=== PATIENT | female | born 1985 | race Caucasian/White ===

== ENCOUNTER 2016-03-03 11:00 | Inpatient (IN) | payer BC ==
[~2016-03-03] VITALS: Ht 162.6 cm; Wt 91.0 kg
[~2016-03-03 11:00] MED LIST: ALBU1NEB10 INH; DIAZ-165 PO; LEVO175T PO; PRED20TA PO
[2016-03-03] MEDS ORDERED: ONDANSETRON INJ 2 MG/ML 2 ML VIAL IV STA (11:46)
[2016-03-03] MEDS ORDERED: HYDROmorphone INJ 1 MG/ML SYR IV STA (11:46)
[2016-03-03 12:18] LABS: BASO % 0.2 %; BASO ABS # 0.02 K/uL (0-0.2); COMPLETE YES; EOS % 0.1 %; HEMATOCRIT 40.9 % (37-47); IG% 0.2 %; LYMPH % 34.6 %; LYMPH ABS # 2.82 K/uL (1.2-3.4); MEAN CELL VOLUME 89.3 fL (80-100); MEAN CORPUSCULAR HGB CONC 34.7 g/dl (32-36); MEAN PLATELET VOLUME 9.1 fL (7.4-10.4); MONO % 8.1 %; NEUT % 56.8 %; PLATELET COUNT 313 K/uL (130-400); RED BLOOD COUNT 4.58 M/uL (4.2-5.4); WHITE BLOOD COUNT 8.16 K/uL (4.8-10.8)
--- NOTE | 2016-03-03 12:25 | DIAGNOSTIC IMAGING REPORT ---
CHEST ONE VIEW PORTABLE CLINICAL HISTORY: Preoperative chest COMPARISON STUDY: 04/04/2014 FINDINGS: The cardiac and mediastinal contours are normal. There is no evidence of focal pulmonary consolidation. There is no evidence of failure. No pleural effusions are visualized.[ IMPRESSION: No active disease in the chest. Electronically signed by: Reginald Sotomayor M.D. 03/03/2016 12:23 PM
[2016-03-03 12:59] LABS: BLOOD UREA NITROGEN 8 mg/dl (7-18); BUN/CREATININE RATIO 8.1 (10-20); CALCIUM 8.5 mg/dl (8.5-10.1); CARBON DIOXIDE 24 mmol/L (21-32); CHLORIDE 107 mmol/L (98-107); GLUCOSE 102 mg/dl (70-99)
[2016-03-03 13:00] LABS: POTASSIUM 4.1 mmol/L (3.5-5.1); SODIUM 141 mmol/L (136-145)
[2016-03-03] MEDS ORDERED: ALBUTEROL 0.083% NEBU SOLN 3 ML VIAL INH PRN (13:30)
[2016-03-03] MEDS ORDERED: LORAZEPAM 1 MG TAB PO PRN (13:30)
[2016-03-03] MEDS ORDERED: ALBUTEROL HFA 8 GM INHALER INH PRN (13:30)
[2016-03-03] MEDS ORDERED: LORAZEPAM INJ 1 MG in SYRINGE 0.5 ML IV PRN (13:30)
[2016-03-03] MEDS ORDERED: PROMETHAZINE HCL INJ 12.5 MG in SODIUM CHLORIDE 0.9% 50ML 50 ML IV PRN (13:30)
[2016-03-03] MEDS ORDERED: CYCLOBENZAPRINE HCL 10 MG TAB PO PRN (13:30)
[2016-03-03] MEDS ORDERED: ACETAMINOPHEN 325 MG TAB PO PRN (13:30)
[2016-03-03 13:41] LABS: PREG INTERNAL NEGATIVE QC NEG CLEAR BACKGROUND; PREG INTERNAL POSITIVE QC POS CONTROL LINE
[2016-03-03 13:45] LABS: ALB/GLOB RATIO 1.1 (0.9-2); ALKALINE PHOSPHATASE 135 U/L (45-117); ALT/SGPT 24 U/L (12-78); AST/SGOT 17 U/L (15-37)
[2016-03-03 14:18] VITALS: BP 129/84; PULSE 65; TEMP 36.8; O2SAT 98; Ht 162.6 cm; Wt 91.0 kg
--- NOTE | 2016-03-03 14:58 | EMERGENCY ROOM VISIT NOTE ---
History First contact with patient: 11:31 Chief Complaint: BACK PAIN Stated Complaint: BACK PAIN History of Present Illness The patient is a 30 year old female who presents to the Emergency Room with complaints of persistent and uncontrollable lower back pain. The patient was seen in the emergency department last , 02/28/16, with similar symptoms. She had an MRI performed that showed an extruded disc fragment. Dr. Cox, ED attending physician, spoke with the patient's spine surgeon, Dr. Rosen, who elected outpatient management. He suggested outpatient follow-up for today; however, when our case sealer contacted the office, their first available appointment was this up coming 03/07/16 at 2:45 PM. The patient reports that she has been taking Percocet, Valium and Zofran. She has been nauseated and has been unable to keep any medications down. She reports that the pain is progressively worsening. She denies any bladder or bowel incontinence, right lower extremity weakness or foot drop. She rates her discomfort a 10 out of 10. Review of Systems HEENT: Denies dizziness, visual problems, hearing loss, tinnitus. Denies difficulty swallowing or oral lesions. PULMONARY: Denies cough, shortness of breath, sputum production or hemoptysis. CARDIOVASCULAR: Denies chest pain, palpitations, dyspnea on exertion, orthopnea or peripheral edema. GASTROINTESTINAL: Denies diarrhea, constipation, nausea, vomiting, or abdominal pain. GENITOURINARY: Denies dysuria, frequency, urgency or nocturia. NEUROLOGIC: Denies history of epilepsy, CVA, TIA or chronic headaches. MUSCULOSKELETAL: Denies history of joint tenderness/swelling. Otherwise see history of present illness for history of chronic back pain and prior back surgery. SKIN: Denies rashes or lesions. PSYCHIATRIC: Denies history of depression or mental illness. ENDOCRINE: Denies history of diabetes or thyroid disorders. Past Medical/Surgical History Medical Problems: (1) Asthma (2) Carpal tunnel syndrome (3) Contusion of foot (4) Contusion of foot (5) Contusion of left index finger without damage to nail (6) Contusion of left index finger without damage to nail (7) Herniated lumbar intervertebral disc (8) Hypothyroidism (9) Hypothyroidism Nos (10) Low back pain (11) Lumbago (12) Menorrhagia (13) Pneumonia, Organism Nos (14) Recurrent displacement of lumbar disc (15) Tobacco Use Disorder (16) Upper respiratory infection (17) Work related injury Surgical Problems: (1) H/O bilateral salpingectomy (2) H/O lumbar discectomy (3) H/O tubal ligation (4) History of hysterectomy (5) Status post tonsillectomy and adenoidectomy (6) Tubal Ligation Status Family History FH: cancer FH: diabetes mellitus FH: gallbladder disease FH: hypertension FH: kidney disease FH: seizures Social History Smoking Status: Current Every Day Smoker Alcohol Use: none Marital Status: single Occupation Status: employed Current/Historical Medications Scheduled Levothyroxine Sodium (Levothyroxine Sodium), 200 MCG PO DAILY Scheduled PRN Albuterol Hfa (Ventolin Hfa), 2 PUFF INH Q4 PRN for Shortness of Breath Albuterol Sulf (Albuterol Sulfate 0.083% For Inh), 3 ML INH Q4 PRN for Wheezing Cyclobenzaprine Hcl (Flexeril), 10 MG PO TID PRN for SPASMS Diazepam (Valium), 5-10 MG PO Q6H PRN for Muscle Spasms Diphenhydramine Hcl (Benadryl Allergy), 25 MG PO BID PRN for ALLERGIC REACTION Epinephrine (Epipen), 0.3 MG IM UD PRN for ALLERGIC REACTION Allergies Coded Allergies: BEE STING (Verified Allergy, Severe, THROAT SWELLS,MOUTH, 03/03/16) Cat Dander (Verified Allergy, Severe, EYES AND THROAT SWELLS, 03/03/16) Dog Dander (Verified Allergy, Severe, EYES AND THROAT SWELLS, 03/03/16) Molds & Smuts (Verified Allergy, Severe, EYES AND THROAT SWELLS, 03/03/16) Moxifloxacin (Verified Allergy, Severe, THROAT SWELLING, 03/03/16) Sulfamethoxazole w/Trimethoprim (Verified Allergy, Severe, THROAT SWELLS, 03/03/16) Penicillins (Verified Allergy, Intermediate, HIVES, 03/03/16) Dust Mite Extract (Verified Allergy, Unknown, STUFFY NOSE, 03/03/16) Physical Exam Vital Signs Date Time Temp Pulse Resp B/P Pulse Ox O2 Delivery O2 Flow Rate FiO2 03/03/16 11:05 36.7 84 20 136/93 98 Room Air Physical Exam CONSTITUTIONAL: Healthy and well nourished. Alert and oriented X 3 with positive affect. Patient appears in moderately severe discomfort, and is crying. HEENT: Normocephalic, atraumatic. Pupils equal, round and reactive. NECK: Full active range of motion without discomfort. RESPIRATORY: Clear to auscultation bilaterally with no wheezing, crackles, rhonchi or stridor. CARDIOVASCULAR: Regular rate and rhythm with no murmurs, rubs or gallops. GASTROINTESTINAL: Bowel sounds present in all quadrants. Soft and nontender to palpation. MUSCULOSKELETAL: Examination shows diffuse tenderness to palpation through the lower central lumbar spine and SI joints. Negative logroll. Positive straight leg raise. Ankle plantar/dorsiflexion strength is 4 out of 5 and symmetric bilaterally. Pedal pulses are intact. INTEGUMENTARY: No rash or other significant dermatologic conditions noted. NEUROLOGIC: Right lower extremity is sensory intact. Deep tendon reflexes 2+ and symmetric bilaterally. Medical Decision & Procedures ER Provider Diagnostic Interpretation: My interpretation of a preoperative chest x-ray shows a sinus rhythm of 78 bpm with a first-degree AV block.'s was also noted on the patient's prior ECG of 04/04 with no other acute changes. My interpretation of the report will chest x-ray does not show any consolidations, pneumothorax or cardiomegaly. Radiologist report is as follows: CHEST ONE VIEW PORTABLE CLINICAL HISTORY: Preoperative chest COMPARISON STUDY: 04/04/2014 FINDINGS: The cardiac and mediastinal contours are normal. There is no evidence of focal pulmonary consolidation. There is no evidence of failure. No pleural effusions are visualized.[ IMPRESSION: No active disease in the chest. I reviewed the patient's ED MRI from 02/28/16, which showed the following: IMPRESSION: 1. There is a disc bulge at L5-S1 with a large inferiorly extruded disc fragment eccentric to the right. This impinges on the exiting right L5 and transiting right sacral nerve roots. 2. There is a small disc bulge eccentric to the right at L4-L5. This may impinge on the transiting right L5 nerve root. 3. There are postoperative changes from right hemilaminectomy at L4 and L5. 4. Degenerative disc disease and chronic endplate changes as above. Laboratory Results 03/03/16 12:05 Red Blood Count 4.58, Mean Corpuscular Volume 89.3, Mean Corpuscular Hemoglobin 31.0, Mean Corpuscular Hemoglobin Concent 34.7, Mean Platelet Volume 9.1, Neutrophils (%) (Auto) 56.8, Lymphocytes (%) (Auto) 34.6, Monocytes (%) (Auto) 8.1, Eosinophils (%) (Auto) 0.1, Basophils (%) (Auto) 0.2, Neutrophils # (Auto) 4.63, Lymphocytes # (Auto) 2.82, Monocytes # (Auto) 0.66, Eosinophils # (Auto) 0.01, Basophils # (Auto) 0.02 03/03/16 12:05 Test 03/03/16 12:05 White Blood Count 8.16 K/uL (4.8-10.8) Red Blood Count 4.58 M/uL (4.2-5.4) Hemoglobin 14.2 g/dL (12.0-16.0) Hematocrit 40.9 % (37-47) Mean Corpuscular Volume 89.3 fL (80-100) Mean Corpuscular Hemoglobin 31.0 pg (25-34) Mean Corpuscular Hemoglobin Concent 34.7 g/dl (32-36) Platelet Count 313 K/uL (130-400) Mean Platelet Volume 9.1 fL (7.4-10.4) Neutrophils (%) (Auto) 56.8 % Lymphocytes (%) (Auto) 34.6 % Monocytes (%) (Auto) 8.1 % Eosinophils (%) (Auto) 0.1 % Basophils (%) (Auto) 0.2 % Neutrophils # (Auto) 4.63 K/uL (1.4-6.5) Lymphocytes # (Auto) 2.82 K/uL (1.2-3.4) Monocytes # (Auto) 0.66 K/uL (0.11-0.59) Eosinophils # (Auto) 0.01 K/uL (0-0.5) Basophils # (Auto) 0.02 K/uL (0-0.2) RDW Standard Deviation 45.2 fL (36.4-46.3) RDW Coefficient of Variation 13.8 % (11.5-14.5) Immature Granulocyte % (Auto) 0.2 % Immature Granulocyte # (Auto) 0.02 K/uL (0.00-0.02) Anion Gap 10.0 mmol/L (3-11) Estimated GFR () 86.3 Estimated GFR (Non- 74.5 BUN/Creatinine Ratio 8.1 (10-20) Calcium Level 8.5 mg/dl (8.5-10.1) Total Bilirubin 0.4 mg/dl (0.2-1) Aspartate Amino Transf (AST/SGOT) 17 U/L (15-37) Alanine Aminotransferase (ALT/SGPT) 24 U/L (12-78) Alkaline Phosphatase 135 U/L (45-117) Total Protein 6.5 gm/dl (6.4-8.2) Albumin 3.4 gm/dl (3.4-5.0) Globulin 3.1 gm/dl (2.5-4.0) Albumin/Globulin Ratio 1.1 (0.9-2) Human Chorionic Gonadotropin, Qual NEG (NEG) The above labs were reviewed. Medications Administered Medications (Trade) Dose Ordered Sig/Cortez Route Start Time Stop Time Status Last Admin Dose Admin Hydromorphone HCl (Dilaudid Inj) 1 mg NOW STAT IV 03/03/16 11:46 03/03/16 11:49 DC 03/03/16 12:08 1 MG Ondansetron HCl (Zofran Inj) 4 mg NOW STAT IV 03/03/16 11:46 03/03/16 11:49 DC 03/03/16 12:07 4 MG ED Course Patient history and physical exam were performed. Nurse's notes were reviewed. Vital signs were reviewed and were normal. I did review the patient's documentation from her last ED visit, including the MRI report. I also reviewed documentation from case sealer. At this point, the patient is failing outpatient management. I did discuss several options with the patient, including pain management at this time and waiting until her appointment on Thursday. I do not feel that this is going to happen since she cannot take her analgesics at home without nausea, with already taking Zofran to prevent nausea. At this point, I discussed the case further with Dr. Kwon, who also discussed the case further with Dr. Rosen. The patient will be admitted for anticipated surgical fusion. Please see their dictation for further treatment and final disposition. The patient rated her pain a 4 out of 10 at the time of transfer of care. Presurgical labs, ECG and portable chest x-ray were also ordered, reviewed and normal. Medical Decision Impression Primary Impression: Herniated lumbar intervertebral disc Departure Information Referrals Karla Yuen D.O. (PCP) Patient Instructions A Signature Page, My [facility]
[2016-03-03 15:00] VITALS: BP 133/85; PULSE 68; TEMP 36.5; O2SAT 97
[2016-03-03] MEDS: OXYCODONE/ACETAMINOPHEN 5-325 TAB PO PRN ×2 (15:28→21:43)
[2016-03-03 16:30] VITALS: O2SAT 97
--- NOTE | 2016-03-03 16:40 | DIAGNOSTIC IMAGING REPORT ---
BILATERAL LOWER EXTREMITY VENOUS DOPPLER HISTORY: Pain. Edema. leg pain COMPARISON STUDY: None. FINDINGS: There is normal compressibility, flow, and augmentation within the bilateral lower extremity deep venous systems. IMPRESSION: No DVT within the right or left lower extremity. Electronically signed by: Barrett Hawkins M.D. 03/03/2016 4:38 PM
[2016-03-03] MEDS: DOCUSATE SODIUM 100 MG CAP PO SCH (21:40)
[2016-03-03] MEDS: ONDANSETRON INJ 2 MG/ML 2 ML VIAL IV PRN (21:42)
[2016-03-03 22:55] VITALS: BP 110/73; PULSE 60; TEMP 36.6; O2SAT 97
[2016-03-04] MEDS: ONDANSETRON INJ 2 MG/ML 2 ML VIAL IV PRN ×2 (03:47→23:55)
[2016-03-04] MEDS: OXYCODONE/ACETAMINOPHEN 5-325 TAB PO PRN ×4 (03:47→23:56)
[2016-03-04] MEDS: LEVOTHYROXINE 200 MCG TAB PO SCH (05:22)
[2016-03-04 06:55] VITALS: BP 109/75; PULSE 52; TEMP 36.4; O2SAT 97
[2016-03-04] MEDS ORDERED: KETOROLAC TROMETHAMINE 30 MG/ML VIAL IV PRN (07:45)
[2016-03-04] MEDS: DOCUSATE SODIUM 100 MG CAP PO SCH ×2 (09:00→20:54)
--- NOTE | 2016-03-04 09:01 | DIAGNOSTIC IMAGING REPORT ---
MRI LUMBAR SPINE COMBINATION CLINICAL HISTORY: Low back pain with right leg radiculopathy. Abnormal noncontrast MRI dated 02/28/2016 TECHNIQUE: Sagittal and axial T1, T2 and STIR images were obtained. COMPARISON STUDY: 02/28/2016 OBSERVATIONS: The vertebral bodies and posterior elements appear intact. There is no abnormal bony signal present to suggest a marrow replacement process. Degenerative endplate marrow signal changes are present at the L4-5, and L5-S1 levels. L1-2: No disc protrusions or extrusions. No evidence of spinal canal or neural foraminal compromise. L2-3: No disc protrusions or extrusions. No evidence of spinal canal or neural foraminal compromise. L3-4: No disc protrusions or extrusions. No evidence of spinal canal or neural foraminal compromise. L4-5: There are postsurgical changes of a right hemilaminectomy. There is an eccentric right-sided disc bulge with an annular fissure. There is postcontrast enhancement. There is no significant spinal or foraminal stenosis. L5-S1: There are postsurgical changes of a right hemilaminectomy. There is a right paracentral soft tissue mass with surrounding postcontrast enhancement. This is consistent with a right-sided disc extrusion. The disc fragment measures 6 mm in AP diameter. There is secondary deformity of thecal sac and there is likely impingement of the right S1 nerve root The conus medullaris and cauda equina appear normal. IMPRESSION: 1. Right-sided extruded disc fragment at the L5-S1 level with secondary thecal sac deformity, and probable impingement of the right S1 nerve root as separates from the thecal sac 2. Eccentric right-sided disc bulge and annular fissure at the L4-5 level 3. Postsurgical changes of right-sided hemilaminectomies at the L4-5, and L5-S1 level Electronically signed by: Reginald Sotomayor M.D. 03/04/2016 9:00 AM
[2016-03-04] MEDS: DEXAMETHASONE INJ 8 MG in SYRINGE 0 ML IV SCH ×2 (09:06→18:06)
[2016-03-04 14:48] VITALS: BP 128/73; PULSE 68; TEMP 36.6; O2SAT 93
[2016-03-04 20:30] VITALS: O2SAT 93
[2016-03-04 23:49] VITALS: BP 100/49; PULSE 71; TEMP 36.5; O2SAT 100
[2016-03-05] MEDS: DEXAMETHASONE INJ 8 MG in SYRINGE 0 ML IV SCH ×3 (02:43→18:40)
[2016-03-05] MEDS: OXYCODONE/ACETAMINOPHEN 5-325 TAB PO PRN ×4 (05:25→19:58)
[2016-03-05] MEDS: LEVOTHYROXINE 200 MCG TAB PO SCH (05:25)
--- NOTE | 2016-03-05 06:51 | Orthopedic Progress Note ---
Orthopedic Progress Note Date of Service Mar 05, 2016. Subjective Additional Notes: Stopped in patient's room at 650 AM, she and her significant were not present. Nursing said that they had left the floor for the outside to smoke a cigarette. Objective Unable to be performed Date Time Temp Pulse Resp B/P Pulse Ox O2 Delivery O2 Flow Rate FiO2 03/04/16 23:49 36.5 71 16 100/49 100 Room Air 03/04/16 23:45 Room Air 03/04/16 20:30 93 Room Air 03/04/16 14:48 36.6 68 16 128/73 93 Room Air 03/04/16 07:30 Room Air 03/04/16 06:55 36.4 52 12 109/75 97 Room Air Assessment & Plan Assessment: Recurrent Lumbar Disc Herniation Plan: At this time, unable to offer further treatment planning. If patient is able to leave hospital for a cigarette, I would feel at this time she could be discharged home and care could be continued on an outpatient basis with Dr. Rosen.
[2016-03-05 07:54] VITALS: BP 122/68; PULSE 73; TEMP 36.6; O2SAT 94
[2016-03-05] MEDS: DOCUSATE SODIUM 100 MG CAP PO SCH ×2 (08:37→20:45)
--- NOTE | 2016-03-05 11:29 | History and Physical ---
History & Physical Date & Time of Service: Mar 05, 2016 at 11:24 Chief Complaint: Recurrent Displacement Of Lumbar Disc Primary Care Physician: Karla Yuen D.O. History of Present Illness Source: patient 30 year old with a one month history of recurring lbp and right lower extremity pain with weakness and numbness. No left lower extremity pain. No bowel or bladder disturbances. Seen in ER and treated with steroids with no increased relief of pain. Admitted for pain control and treatment options. Past Medical/Surgical History Medical Problems: (1) Asthma Status: Chronic (2) Carpal tunnel syndrome Status: Resolved (3) Contusion of foot Status: Resolved (4) Contusion of foot Status: Resolved (5) Contusion of left index finger without damage to nail Status: Resolved (6) Contusion of left index finger without damage to nail Status: Resolved (7) Herniated lumbar intervertebral disc Status: Resolved (8) Hypothyroidism Status: Chronic (9) Low back pain Status: Resolved (10) Lumbago Status: Resolved (11) Menorrhagia Status: Resolved (12) Pneumonia, Organism Nos Status: Resolved (13) Tobacco Use Disorder Status: Chronic (14) Upper respiratory infection Status: Resolved (15) Work related injury Status: Resolved Surgical Problems: (1) H/O bilateral salpingectomy Status: Resolved (2) H/O lumbar discectomy Status: Resolved (3) H/O tubal ligation Status: Resolved (4) History of hysterectomy Status: Resolved (5) Status post tonsillectomy and adenoidectomy Status: Resolved Family History FH: cancer FH: diabetes mellitus FH: gallbladder disease FH: hypertension FH: kidney disease FH: seizures Social History Smoking Status: Current Every Day Smoker Marital Status: single Housing status: other Occupational Status: employed Immunizations History of Tetanus Vaccine?: Unknown History of Pneumococcal: Unknown History of Hepatitis B Vaccine: Unknown Multi-Drug Resistant Organisms History of MDRO: No Allergies Coded Allergies: BEE STING (Verified Allergy, Severe, THROAT SWELLS,MOUTH, 03/03/16) Cat Dander (Verified Allergy, Severe, EYES AND THROAT SWELLS, 03/03/16) Dog Dander (Verified Allergy, Severe, EYES AND THROAT SWELLS, 03/03/16) Molds & Smuts (Verified Allergy, Severe, EYES AND THROAT SWELLS, 03/03/16) Moxifloxacin (Verified Allergy, Severe, THROAT SWELLING, 03/03/16) Sulfamethoxazole w/Trimethoprim (Verified Allergy, Severe, THROAT SWELLS, 03/03/16) Penicillins (Verified Allergy, Intermediate, HIVES, 03/03/16) Dust Mite Extract (Verified Allergy, Unknown, STUFFY NOSE, 03/03/16) Home Medications Scheduled Levothyroxine Sodium (Levothyroxine Sodium), 200 MCG PO DAILY Scheduled PRN Albuterol Hfa (Ventolin Hfa), 2 PUFF INH Q4 PRN for Shortness of Breath Albuterol Sulf (Albuterol Sulfate 0.083% For Inh), 3 ML INH Q4 PRN for Wheezing Cyclobenzaprine Hcl (Flexeril), 10 MG PO TID PRN for SPASMS Diazepam (Valium), 5-10 MG PO Q6H PRN for Muscle Spasms Diphenhydramine Hcl (Benadryl Allergy), 25 MG PO BID PRN for ALLERGIC REACTION Epinephrine (Epipen), 0.3 MG IM UD PRN for ALLERGIC REACTION Review of Systems Constitutional: No chills, No fatigue, No fever, No problem reported, No sweats , No weakness, No weight loss Respiratory: No cough, No dyspnea at rest, No dyspnea on exertion, No hemoptysis, No problem reported, No shortness of breath, No sputum, No wheezing Cardiovascular: No PND, No chest pain, No claudication, No edema, No orthopnea , No palpitations, No problem reported Abdomen: No GI bleeding, No constipation, No diarrhea, No nausea, No pain, No problem reported, No vomiting Neurologic: + numbness/tingling, + weakness Integumentary: No bleeding, No color change, No itch, No new/changing skin lesions, No problem reported, No rash Physical Exam Vital Signs Date Time Temp Pulse Resp B/P Pulse Ox O2 Delivery O2 Flow Rate FiO2 03/05/16 07:54 36.6 73 20 122/68 94 Room Air 03/04/16 23:49 36.5 71 16 100/49 100 Room Air 03/04/16 23:45 Room Air 03/04/16 20:30 93 Room Air 03/04/16 14:48 36.6 68 16 128/73 93 Room Air General Appearance: WD/WN, no apparent distress Head: normocephalic Eyes: PERRL, EOMI ENT: hearing grossly normal Neck: supple Respiratory/Chest: no respiratory distress Cardiovascular: normal peripheral pulses Abdomen/GI: non tender, soft Back: + decreased range of motion, + paravertebral tenderness Extremities/Musculoskelatal: no calf tenderness, normal capillary refill, no pedal edema, normal range of motion Neurologic/Psych: no motor/sensory deficits Skin: normal color, warm/dry, no rash Diagnostics Diagnostic Radiology Recurrent R lumbar disc herniation Impression Assessment and Plan Lumbar Disc Herniation: will place patient on Decadron and Toradol. Pain medication for increased symptomatic pain. Will re-evaluate. Advanced Directives Existing Advance Directive: No Existing Living Will: No Existing Power of Shirring Machine Operator: No VTE Prophylaxis VTE Risk Assessment Done? Y/N: No Risk Level: Low
--- NOTE | 2016-03-05 11:31 | Orthopedic Progress Note ---
Orthopedic Progress Note Date of Service Mar 05, 2016. Subjective Additional Notes: I spoke with Dr. Rosen regarding status of patient. He evaluated the patient yesterday and agrees with my evaluation of patient and status. At this time, we are going to attempt to calm her pain and treat this conservatively. She may be discharged home and should arrange follow-up with Dr. Rosen ). Objective Date Time Temp Pulse Resp B/P Pulse Ox O2 Delivery O2 Flow Rate FiO2 03/05/16 07:54 36.6 73 20 122/68 94 Room Air 03/04/16 23:49 36.5 71 16 100/49 100 Room Air 03/04/16 23:45 Room Air 03/04/16 20:30 93 Room Air 03/04/16 14:48 36.6 68 16 128/73 93 Room Air Assessment & Plan Assessment: Recurrent Lumbar Disc Herniation Plan: At this time, unable to offer further treatment planning. If patient is able to leave hospital for a cigarette, I would feel at this time she could be discharged home and care could be continued on an outpatient basis with Dr. Rosen.
--- NOTE | 2016-03-05 11:33 | Discharge Instructions ---
Discharge Instructions Admission Reason for Admission: Recurrent Displacement Of Lumbar Disc Discharge Discharge Diagnosis / Problem: Recurrent lumbar disc herniation Discharge Goals Goal(s): Decrease discomfort, Improve function, Increase independence Activity Recommendations Activity Limitations: as noted below Lifting Limitations: no more than 10 pounds Exercise/Sports Limitations: gradually increase as tolerated May Resume Sexual Activity: after follow-up appointment Shower/Bathe: no limitations . Instructions / Follow-Up Instructions / Follow-Up Patient is to call Dr. Rosen, [phone] and arrange follow up care. Current Hospital Diet Patient's current hospital diet: Regular Diet Discharge Diet Recommended Diet: Regular Diet Pending Studies Studies pending at discharge: no Medical Emergencies . Who to Call and When: Medical Emergencies: If at any time you feel your situation is an emergency, please call 911 immediately. . Non-Emergent Contact Non-Emergency issues call your: Primary Care Provider Call Non-Emergent contact if: your pain is not controlled, your pain is worsening, your pain is unusual for you, your pain is concerning you . "Provider Documentation" section prepared by Jose Guadalupe Garcia. VTE Core Measure Inpt VTE Proph given/why not?: Gibson Alejandro
[2016-03-05 15:29] VITALS: BP 100/59; PULSE 66; TEMP 36.7; O2SAT 94
[2016-03-05 15:40] VITALS: O2SAT 94
[2016-03-05] MEDS: ONDANSETRON INJ 2 MG/ML 2 ML VIAL IV PRN (15:59)
[2016-03-05 22:55] VITALS: BP 113/72; PULSE 66; TEMP 36.5; O2SAT 93
[2016-03-06] MEDS: OXYCODONE/ACETAMINOPHEN 5-325 TAB PO PRN ×3 (01:40→13:02)
[2016-03-06] MEDS: DEXAMETHASONE INJ 8 MG in SYRINGE 0 ML IV SCH ×2 (01:41→09:34)
[2016-03-06] MEDS: LEVOTHYROXINE 200 MCG TAB PO SCH (05:42)
[2016-03-06 07:12] VITALS: BP 110/67; PULSE 61; TEMP 36.4; O2SAT 93
[2016-03-06] MEDS: DOCUSATE SODIUM 100 MG CAP PO SCH (09:34)
[2016-03-06] MEDS ORDERED: KETO10TA PO (12:25)
[2016-03-06] MEDS ORDERED: OXYC-57 PO (12:26)
--- NOTE | 2016-03-06 12:29 | Orthopedic Progress Note ---
Orthopedic Progress Note Date of Service Mar 06, 2016. Subjective Additional Notes: Feeling better, still RLE pain with increased activity. More tolerable than before. No numbness or weakness. Continues to leave hospital on regular basis to smoke. No other complaints. Objective calves soft nontender, N/V intact, capillary refill less than 2 sec., A&O x3, toes mobile Date Time Temp Pulse Resp B/P Pulse Ox O2 Delivery O2 Flow Rate FiO2 03/06/16 08:00 Room Air 03/06/16 07:12 36.4 61 12 110/67 93 Room Air 03/06/16 00:10 Room Air 03/05/16 22:55 36.5 66 16 113/72 93 Room Air 03/05/16 15:40 94 Room Air 03/05/16 15:29 36.7 66 16 100/59 94 Room Air Assessment & Plan Assessment: Recurrent Lumbar Disc Herniation Plan: At this time, we had a long discussion regarding her care. We will attempt to discharge home today on Toradol and Percocet (for pain). We will arrange an injection as a conservative measure to control her pain. She was in agreeance with this plan
[2016-03-06 14:21] VITALS: BP 110/67; PULSE 61; TEMP 36.4; O2SAT 93
[2016-03-06] MEDS: ONDANSETRON INJ 2 MG/ML 2 ML VIAL IV PRN (14:36)
--- NOTE | 2016-03-12 10:21 | DISCHARGE SUMMARY ---
PRINCIPAL DIAGNOSIS: Recurrent lumbar disc herniation. POSTOPERATIVE DIAGNOSIS: Recurrent lumbar disc herniation. HISTORY OF PRESENT ILLNESS: Please refer to EMR. HOSPITAL COURSE: On the above admission date Ms. Miller was admitted to [facility] for care for recurrent lumbar disc herniation. She was placed on the med/surg unit where she was evaluated and treated conservatively with IV and oral medications including steroids and opioids. She was evaluated subsequent admission day and was improving, medically she remained stable. Her pain was well managed. There were no complications or issues. She was evaluated on date of 03/06/2016 and indicated for return home with continued outpatient care. Because of her progression with conservative care on the above discharge date she was returned home from [facility]. DISPOSITION: Home. DISPOSITION CONDITION: Stable. NOTED COMPLICATIONS OR ISSUES: Zero. DISCHARGE INSTRUCTIONS: Please refer to EMR.
[2016-04-01] MEDS ORDERED: TRAM-10 PO (11:10)
[2016-07-29] MEDS ORDERED: CYCL10TA6 PO (00:24)
[2016-07-29] MEDS ORDERED: EPP3/2 IM (00:26)
[2016-07-29] MEDS ORDERED: DIPH25CA65 PO (00:27)
[2016-07-29] MEDS ORDERED: VNTHFA/IN INH (08:52)
[2016-07-29] MEDS ORDERED: LEVO200T6 PO (11:38)
== END 2016-03-06 15:00 | disposition home or self-care (01) | DRG 552 ==
LOC: ENRESERVTM → ENRESERVDT → C.EDB 11:01 → C.MSN 13:23
PROVIDERS: ADMIT Orthopaedic Surgery Orthopaedic Surgery of the Spine; ATTEND Orthopaedic Surgery Orthopaedic Surgery of the Spine
DX: M51.26 Other intervertebral disc displacement, lumbar region (principal); F17.210 Nicotine dependence, cigarettes, uncomplicated; Z79.899 Other long term (current) drug therapy

== ENCOUNTER 2016-04-08 07:45 | Inpatient (IN) | payer BC, OTHER ==
[2016-04-01 11:10] VITALS: BMI 36.0
[2016-04-08] VITALS (10 sets, daily range): BP systolic 81–125; BP diastolic 51–83; PULSE 61–83; TEMP 36.4–36.9; O2SAT 94–99; Ht 162.6 cm; Wt 95.0 kg
[~2016-04-08] VITALS: Ht 162.6 cm; Wt 95.0 kg
[~2016-04-08 07:45] MED LIST changes: +CEFAZOLIN 2000 MG/60 ML D5W IV SCH; +CLINDAMYCIN 600 MG/54 ML D5W 54 ML IV SCH; +CeleBREX 200 MG CAP PO SCH; -DIAZ-165 PO; +LACTATED RINGER'S 1000ML 1,000 ML IV SCH; -LEVO175T PO; -PRED20TA PO; +PREGABALIN 75 MG CAP PO SCH; +TRAM-10 PO
[2016-04-08] MEDS ORDERED: OXYC-609 (08:05)
[2016-04-08] MEDS ORDERED: OXYC-57 PO ×2 (08:06→10:03)
[2016-04-08] MEDS ORDERED: CLINDAMYCIN 600 MG/54 ML D5W IV ONE (10:00)
--- NOTE | 2016-04-08 10:04 | Discharge Instructions ---
Discharge Instructions Admission Reason for Admission: Lumbar Spinal Stenosis Discharge Discharge Diagnosis / Problem: Lumbar Stenosis Discharge Goals Goal(s): Decrease discomfort, Improve function, Increase independence Activity Recommendations Activity Limitations: as noted below Lifting Limitations: no more than 5 pounds Exercise/Sports Limitations: until after follow-up appointment May Resume Sexual Activity: after follow-up appointment Shower/Bathe: may shower/bathe in 3 days . Instructions / Follow-Up Instructions / Follow-Up ACTIVITY RECOMMENDATIONS: SELF CARE INSTRUCTIONS AFTER THORACIC/LUMBAR FUSIONS 1. You may walk to your tolerance. It is good exercise for your legs and back. Expect some back and intermittent leg aches and pains. 2. You may perform "counter-top" level activities (make a sandwich, remi with a project, etc.). 3. No bending or lifting of more than 10 pounds or back twisting of any nature (roll like a log when turning in bed). 4. You may ride in a car for 20-30 minutes at a time. No driving until after your first visit with your doctor. 5. Frequent changes of position and restricting sitting to 30 minutes at a time will help limit the amount of back spasms and stiffness you may experience. 6. You may discontinue the use of ambulatory aids (cane, crutches, etc.) once your strength and confidence allow. 7. You may anode machine operator the shower and let water strike your incision when you arrive home at least once daily. Do not take a tub bath, sit in a hot tub or go into a swimming pool until after your first recheck in the office. SPECIAL CARE INSTRUCTIONS: VERY IMPORTANT TO READ AND REVIEW A. Your surgical incision has been closed with a cosmetic suture under the skin that will dissolve in about 6 weeks. In 14 days, you can use a pair of clean scissors and cut the suture that is left outside of the skin at the ends of your incision. 1. The small skin tapes can be removed 7 days after surgery if they have not fallen off by that point. 2. You may keep the wound open to air as much as possible to promote healing after post-op day number 5 unless told otherwise by your doctor. 3. If you think the wound looks like it is becoming infected (redness or worsening drainage) and/or you are experiencing fever, chill or worsening back pain and muscle spasms, contact the office so that we may evaluate you as soon as possible. B. Complications are uncommon, but please contact us if you have any signs or symptoms of: 1. wound infection (fever higher than 102.5 degrees F, redness, separation of wound, drainage, or increasing pain from the incision) 2. blood clots in legs (pain, swelling, redness and warmth in legs) 3. urinary tract infection (fever higher than 102.5 degrees F, burning upon urination or increased frequency of urination) 4. nerve problems (inability to walk on your toes or heels, numbness, loss of bowel or bladder control) 5. any other symptoms that concern you C. Please call the office at if you have any concerns or questions about your operation or recovery. D. No smoking! Smoking drastically decreases the chance of a solid fusion. E. Do not take any anti-inflammatory medications (Indocin, Advil, Motrin, Aspirin, Naprosyn, etc.) as these may inhibit the chance of a solid fusion. Tylenol is okay to take for pain. MANAGING PAIN AFTER SPINAL SURGERY 1. Narcotic medication is intended for short-term use and will be provided for surgical pain. Surgical pain usually lasts for a period of 4-6 weeks. Narcotic medication includes Percocet, Vicodin, Darvocet, Tylenol #3 or Lortab. 2. Longer-term pain is more appropriately treated with non-narcotic medication such as Tylenol ES. 3. Muscle spasm is not appropriately treated with narcotics. Muscle relaxers such as Soma, Flexeril or Skelaxin can be used along with Tylenol ES. 4. Remember that we all live with some "aches and pains". This is not unusual or uncommon after an injury or as we get older. a. Back pain is expected and may include muscle spasms for 4 to 6 weeks after surgery. The pain should gradually improve. If the pain worsens for no apparent reason, please contact the office. b. Intermittent leg pain may also be experienced and should not be concerned about unless it worsens for no apparent reason. If so, please contact the office. 5. We will provide appropriate medication within the normal guidelines of their prescribed use. We will also be very cautious and aware of potential abuse and extended duration of patients' medication needs. a. Pain medications are for your comfort and to assist with sleep and rest so that the tissue can heal. They are not provided in order to return to normal activity and should not be used through the day. To do so or worsening pain at night can result from ongoing tissue damage and development of tolerance to the prescribed medicine. 6. Please allow 2-3 days to process refills. Prescriptions will not be mailed but must be picked up at the office. FOLLOW UP VISIT: Keep your scheduled follow-up appointment. Any questions, please call the office at . Current Hospital Diet Patient's current hospital diet: Discharge Diet Recommended Diet: Regular Diet Pending Studies Studies pending at discharge: no Medical Emergencies . Who to Call and When: Medical Emergencies: If at any time you feel your situation is an emergency, please call 911 immediately. . Non-Emergent Contact Non-Emergency issues call your: Surgeon Call Non-Emergent contact if: temperature is above 101, your pain is not controlled, your pain is worsening, your pain is unusual for you, your pain is concerning you, wound has increased drainage, wound has increased redness, wound has increased pain, you have any medication questions . "Provider Documentation" section prepared by Jose Guadalupe Garcia. VTE Core Measure Inpt VTE Proph given/why not?: Gibson Alejandro
--- NOTE | 2016-04-08 10:05 | History and Physical ---
History & Physical Date Apr 08, 2016. Chief Complaint LBP and R leg pain History of Present Illness The patient is a 30 year old female with complaints of above who had prior discectomies in 2015. Did well initially until symptoms returned. More severe R leg pain this time. occasional tinglin in RLE. MRI shows recurrent HNP L5- S1 with advanced disc degeneration L4-S1. Failed outpatient management. Past Medical/Surgical History Medical Problems: (1) Asthma (2) Carpal tunnel syndrome (3) Contusion of foot (4) Contusion of foot (5) Contusion of left index finger without damage to nail (6) Contusion of left index finger without damage to nail (7) Herniated lumbar intervertebral disc (8) Hypothyroidism (9) Hypothyroidism Nos (10) Low back pain (11) Lumbago (12) Menorrhagia (13) Pneumonia, Organism Nos (14) Recurrent displacement of lumbar disc (15) Tobacco Use Disorder (16) Upper respiratory infection (17) Work related injury Surgical Problems: (1) H/O bilateral salpingectomy (2) H/O lumbar discectomy (3) H/O tubal ligation (4) History of hysterectomy (5) Status post tonsillectomy and adenoidectomy (6) Tubal Ligation Status Additional History Hepatic Disease: No Endocrine Disorder: No Kidney Disease: No Hypertension: No Heart Disease: No Bleeding Tendencies: No Infectious Diseases: No Allergies Coded Allergies: BEE STING (Verified Allergy, Severe, THROAT SWELLS,MOUTH, 04/08/16) Cat Dander (Verified Allergy, Severe, EYES AND THROAT SWELLS, 04/08/16) Dog Dander (Verified Allergy, Severe, EYES AND THROAT SWELLS, 04/08/16) Molds & Smuts (Verified Allergy, Severe, EYES AND THROAT SWELLS, 04/08/16) Moxifloxacin (Verified Allergy, Severe, THROAT SWELLING, 04/08/16) Sulfamethoxazole w/Trimethoprim (Verified Allergy, Severe, THROAT SWELLS, 04/08/16) Penicillins (Verified Allergy, Intermediate, HIVES, 04/08/16) Dust Mite Extract (Verified Allergy, Unknown, STUFFY NOSE, 04/08/16) Home Medications Scheduled Levothyroxine Sodium (Levothyroxine Sodium), 200 MCG PO QAM Scheduled PRN Albuterol Hfa (Ventolin Hfa), 2 PUFF INH Q4 PRN for Shortness of Breath Albuterol Sulf (Albuterol Sulfate 0.083% For Inh), 3 ML INH Q4 PRN for Wheezing Cyclobenzaprine Hcl (Flexeril), 10 MG PO TID PRN for SPASMS Diphenhydramine Hcl (Benadryl Allergy), 25 MG PO BID PRN for ALLERGIC REACTION Epinephrine (Epipen), 0.3 MG IM UD PRN for ALLERGIC REACTION Oxycodone/Acetaminophen 5MG/325MG (Percocet 5MG/325MG), 1-2 TABLETS PO Q4H PRN for Pain Tramadol (Ultram), 50 MG PO Q8H PRN for Pain Miscellaneous Medications Oxycodone HCl (Oxycodone HCl) Physical Examination Skin: warm/dry Eyes: normal inspection ENT: normal ENT inspection Head: normocephalic, atraumatic Neck: supple, trachea midline Respiratory/Chest: lungs clear, no respiratory distress Cardiovascular: regular rate, rhythm Back: normal inspection Extremities: normal inspection, normal range of motion (positive R SLR) Neurologic/Psych: no motor/sensory deficits, alert, normal reflexes, oriented x 3 Diagnosis R L5-S1 recurrent HNP, L4-5 disc degeneration Plan of Treatment revision discectomy R L5-S1, L4-S1 PSF
[2016-04-08] MEDS ORDERED: BUPIVACAINE/EPINEPHRINE 0.5% MPF 1:200,000 30 ML VIAL ONE (10:26)
[2016-04-08] MEDS ORDERED: THROMBIN FOR SOLN 20000 UNIT KIT ONE (10:26)
[2016-04-08] MEDS ORDERED: HEPARIN SOD (PORCINE) 1000 UNIT/ML 10 ML VIAL ONE (10:27)
[2016-04-08] MEDS ORDERED: THROMBIN 5000 UNITS KIT ONE (10:27)
[2016-04-08] MEDS ORDERED: BACITRACIN 50000 UNIT VIAL ONE (10:27)
[2016-04-08] MEDS ORDERED: EpHEDrine SULFATE INJ 50 MG/ML AMP IV PRN (10:30)
[2016-04-08] MEDS ORDERED: ATROPINE SULFATE 0.1 MG/ML 5ML SYR IV PRN (10:30)
[2016-04-08] MEDS ORDERED: ONDANSETRON INJ 2 MG/ML 2 ML VIAL IV PRN (10:30)
[2016-04-08] MEDS ORDERED: FENTANYL CITRATE INJ 50 MCG/1 ML 2 ML VIAL ONE (10:33)
[2016-04-08] MEDS ORDERED: MIDAZOLAM HCL 1 MG/ML 2ML VIAL ONE (10:33)
[2016-04-08] MEDS ORDERED: ALBUTEROL HFA INHALER 8.5 GM INH ONE (10:55)
[2016-04-08] MEDS ORDERED: DEXAMETHASONE SOD INJ 4 MG/ML VIAL ONE (11:02)
[2016-04-08] MEDS ORDERED: PROPOFOL IV EMULSION 10 MG/ML 20 ML VIAL IV ONE (11:43)
[2016-04-08] MEDS ORDERED: ONDANSETRON INJ 2 MG/ML 2 ML VIAL ONE (11:43)
[2016-04-08] MEDS ORDERED: ROCURONIUM BROMIDE 10 MG/ML 5 ML VIAL ONE (11:43)
[2016-04-08] MEDS ORDERED: GLYCOPYRROLATE INJ 0.2 MG/ML VIAL ONE (11:43)
[2016-04-08] MEDS ORDERED: NEOSTIGMINE METHYLSULFATE 1 MG/ML 10ML VIAL ONE (11:43)
[2016-04-08] MEDS ORDERED: HYDROmorphone INJ 2 MG/ML SYR/VIAL ONE (11:51)
[2016-04-08] MEDS ORDERED: PHENYLEPHRINE 100MCG/ML 5ML SYR ONE (12:42)
[2016-04-08] MEDS ORDERED: SODIUM CHLORIDE 0.9% 1000ML 1,000 ML IV SCH (12:43)
--- NOTE | 2016-04-08 12:43 | [facility] Post Operative Brief Note ---
Immediate Operative Summary Operative Date Apr 08, 2016. Pre-Operative Diagnosis SPINAL STENOSIS Post-Operative Diagnosis SAME PREOP Procedure(s) Performed L4-S1 DECOMPRESSION AND INSTRUMENTED FUSION, INTERBODY FUSION L5-S1, USE OF INFUSE AND ARTERIOCYTE Surgeon DR. Libby ESQUIVEL Timber Hewer Surgeon(s) Yolanda CLEMENT PAC Estimated Blood Loss 150ml Findings dict Specimens NONE
[2016-04-08] MEDS ORDERED: PHENYLEPHRINE HCL INJ 10 MG/ML VIAL ONE (12:44)
[2016-04-08] MEDS ORDERED: ALUMINUM/MAGNESIUM SUSP 30 ML UDC PO PRN (12:45)
[2016-04-08] MEDS ORDERED: MAGNESIUM HYDROXIDE SUSP 30 ML UDC PO PRN (12:45)
[2016-04-08] MEDS ORDERED: LORAZEPAM 0.5 MG TAB PO PRN (12:45)
[2016-04-08] MEDS ORDERED: FAMOTIDINE 20 MG TAB PO PRN (12:45)
[2016-04-08] MEDS ORDERED: hydrOXYzine HCL 25 MG TAB PO PRN (12:45)
[2016-04-08] MEDS ORDERED: HYDROmorphone HCL 0.5MG/ML 50 ML CASSETTE IV PRN (12:45)
[2016-04-08] MEDS ORDERED: PROMETHAZINE HCL INJ 12.5 MG in SODIUM CHLORIDE 0.9% 50ML 50 ML IV PRN (12:45)
[2016-04-08] MEDS ORDERED: ALBUTEROL HFA 8 GM INHALER INH PRN (12:45)
[2016-04-08] MEDS ORDERED: METOCLOPRAMIDE HCL INJ 5 MG/ML 2 ML VIAL IV PRN (12:45)
[2016-04-08] MEDS ORDERED: NALOXONE HCL 0.4 MG/1 ML VIAL/CARP IV PRN ×2 (12:45)
[2016-04-08] MEDS ORDERED: BISACODYL 10 MG SUPP PR PRN (12:45)
[2016-04-08] MEDS ORDERED: SOD PHOSPHATE/SOD BIPHOSPHATE ENEMA 132 ML BTL PR PRN (12:45)
[2016-04-08] MEDS ORDERED: LORAZEPAM INJ 0.5 MG in SYRINGE 0 ML IV PRN (12:45)
[2016-04-08] MEDS ORDERED: ACETAMINOPHEN IV 100 ML IV PRN (12:45)
--- NOTE | 2016-04-08 12:51 | DIAGNOSTIC IMAGING REPORT ---
INTRAOPERATIVE FLUOROSCOPIC IMAGES OF THE LUMBAR SPINE CLINICAL HISTORY: L4-S1 DECOMPRESSION AND FUSION COMPARISON STUDY: Lumbar spine MRI March 04, 2016. Fluoroscopy time: 9.8 seconds. FINDINGS: 2 fluoroscopic images demonstrate an L5-S1 discectomy with interbody spacer placement. There is a posterior decompression. Note is made of bilateral pedicle screws at the L4, L5 and S1 levels with interconnecting rods. Hardware is intact. IMPRESSION: Findings consistent with an L5-S1 discectomy and L4-S1 bilateral pedicle screw fusion. Electronically signed by: Dewayne Vieira M.D. 04/08/2016 12:50 PM Dictated Date/Time: 04/08/2016 12:48 PM
[2016-04-08] MEDS ORDERED: HYDROmorphone HCL 0.5MG/ML 50 ML CASSETTE ONE (13:18)
[2016-04-08] MEDS: FENTANYL CITRATE INJ 50 MCG/1 ML 2 ML VIAL IV PRN ×4 (13:20→13:35)
[2016-04-08] MEDS: HYDROmorphone INJ 1 MG/ML SYR IV PRN ×2 (13:40→13:45)
--- NOTE | 2016-04-08 14:10 | Anesthesiology Progress Note ---
Anesthesia Post Op Note Date & Time Apr 08, 2016 at 14:10 Vital Signs Pain Intensity: 5 Vital Signs Past 12 Hours Date Time Temp Pulse Resp B/P Pulse Ox O2 Delivery O2 Flow Rate FiO2 04/08/16 14:01 36.3 62 16 120/69 97 Nasal Cannula 4 04/08/16 13:29 81 17 04/08/16 13:29 81 17 96 04/08/16 13:28 115/73 04/08/16 13:24 76 16 04/08/16 13:24 75 16 91 04/08/16 13:23 109/69 04/08/16 13:19 74 15 04/08/16 13:19 77 15 95 04/08/16 13:14 72 15 04/08/16 13:14 72 15 97 04/08/16 13:13 115/67 04/08/16 13:09 71 13 04/08/16 13:09 72 13 100 04/08/16 13:09 36.3 72 14 113/71 100 Mask 10 04/08/16 08:07 36.7 83 18 125/83 94 Room Air Notes Mental Status: alert / awake / arousable, participated in evaluation Pt Amnestic to Procedure: Yes Nausea / Vomiting: adequately controlled Pain: adequately controlled Airway Patency, RR, SpO2: stable & adequate BP & HR: stable & adequate Hydration State: stable & adequate Anesthetic Complications: no major complications apparent
--- NOTE | 2016-04-08 14:11 | OPERATIVE REPORT ---
DATE OF OPERATION: 04/08/2016 PREOPERATIVE DIAGNOSES: 1. Lumbar disc degeneration L4-L5 and L5-S1. 2. Recurrent right L5-S1 herniated nucleus pulposus. POSTOPERATIVE DIAGNOSIS: Same. PROCEDURES: 1. Revision laminectomy L5 with revision right L5-S1 microdiscectomy. 2. Segmental pedicle screw instrumentation -- bilateral L4, L5 and S1 with K2M [place] pedicle screws. 3. Posterolateral fusion L4-S1 -- bilateral with Infuse BMP on a collagen sponge, tricalcium phosphate, local bone, bone putty and bone marrow aspirate. 4. Right L5-S1 transforaminal lumbar interbody fusion with K2M titanium mesh cage, local bone, bone putty and bone marrow aspirate. 5. Right iliac crest bone marrow aspiration, stem cell concentration with Arteriocyte and application of bone graft. SURGEON: Dr. Rosen. PROJECT SAFETY MANAGER: Jose Guadalupe Garcia PA-C. Please note he participated in all portions of the procedure and was critical for performance of the procedure, participated in positioning, prepping, draping, retraction and wound closure. ANESTHESIA: General endotracheal anesthesia. COMPLICATIONS: None. ESTIMATED BLOOD LOSS: 150 mL. OPERATION AND FINDINGS: PROCEDURE: After identification of patient and operative level, she was brought to the OR where she underwent induction of general anesthesia. She was then positioned prone on Dima OR table. All bony prominences were well padded. Care was taken to avoid pressure on the periorbital area. Lumbosacral area was sterilely prepped and draped in usual fashion. Antibiotics were administered. Time-out was performed. Level was confirmed and skin incision was infiltrated with Marcaine. I made skin incision from spinous process of L3 to the sacrum, performed posterior exposure, placed Gelpi retractors and confirmed level. I then did a revision laminectomy of L5 and released the adhesions and identified the disc herniation and remove loose disc fragments. I then confirmed the nerve was decompressed and placed pedicle screws bilaterally at L4, L5 and S1 bilateral with K2M [place] pedicle screws. I then confirmed screw position with fluoroscopy. I then proceeded to perform interbody from the right at L5-S1. I prepared the disc space with todd and curettes and determined graft size with paddle distractors and filled the titanium mesh cage with local bone, bone putty, bone marrow aspirate and tamped into position. This had good stability and restored disc height. I then lowered the Khanh frame, applied rods and end caps and final tightening. I aspirated bone marrow from the right iliac crest via separate stab incision with a Snehtashidi needle constructed with Arteriocyte system and applied it to bone graft, bone graft manuscript reader and then decorticated the transverse process and facets from L4 to the sacral ala bilaterally with a high speed bur. I then packed the lateral gutters with bone graft mixture as above. I then confirmed hemostasis and closed in layered fashion over ANAND drain. All sponge and needle counts were correct at the end of the case. I attest to the content of the Intraoperative Record and any orders documented therein. Any exceptio ns are noted below.
[2016-04-08] MEDS: SODIUM CHLORIDE 0.9% 1000ML 1,000 ML IV SCH (15:27)
[2016-04-08] MEDS: CLINDAMYCIN IV 600 MG in DEXTROSE 5% ADD-VANTAGE 50ML 50 ML IV SCH (19:26)
[2016-04-08] MEDS: DEXAMETHASONE INJ 6 MG in SYRINGE 0 ML IV SCH (19:32)
[2016-04-08] MEDS: ONDANSETRON INJ 2 MG/ML 2 ML VIAL IV PRN (19:38)
[2016-04-08] MEDS: DOCUSATE SODIUM/SENNA 50/8.6MG TAB PO SCH (21:01)
[2016-04-09] VITALS (7 sets, daily range): BP systolic 100–129; BP diastolic 60–82; PULSE 54–83; TEMP 36.8–37.1; O2SAT 92–97
[2016-04-09] MEDS: CLINDAMYCIN IV 600 MG in DEXTROSE 5% ADD-VANTAGE 50ML 50 ML IV SCH (02:30)
[2016-04-09] MEDS ORDERED: NURSING DECISION MEDICATION ORDER SCH (02:45)
[2016-04-09] MEDS ORDERED: COUGH DROP (SUGAR FREE) LOZ 24 LOZ/1 BOX PO PRN (02:45)
[2016-04-09] MEDS: DEXAMETHASONE INJ 6 MG in SYRINGE 0 ML IV SCH ×2 (03:48→11:53)
[2016-04-09] MEDS: SODIUM CHLORIDE 0.9% 1000ML 1,000 ML IV SCH (04:36)
[2016-04-09] MEDS: LEVOTHYROXINE 200 MCG TAB PO SCH (05:39)
[2016-04-09] MEDS ORDERED: HYDROmorphone INJ 1 MG/ML SYR IV PRN (06:00)
[2016-04-09] MEDS ORDERED: DC PCA ONE (06:00)
[2016-04-09] MEDS: ONDANSETRON INJ 2 MG/ML 2 ML VIAL IV PRN (06:16)
[2016-04-09] MEDS: OXYCODONE HCL IR 5 MG TAB (IMMEDIATE RELEASE) PO PRN ×3 (06:16→16:13)
[2016-04-09 07:15] LABS: HEMATOCRIT 38.4 % (37-47); MEAN CELL VOLUME 92.5 fL (80-100); MEAN CORPUSCULAR HEMOGLOBIN 31.6 pg (25-34); MEAN CORPUSCULAR HGB CONC 34.1 g/dl (32-36); MEAN PLATELET VOLUME 9.2 fL (7.4-10.4); PLATELET COUNT 313 K/uL (130-400); RED BLOOD COUNT 4.15 M/uL (4.2-5.4)
[2016-04-09 07:40] LABS: BUN/CREATININE RATIO 9.2 (10-20); CALCIUM 8.9 mg/dl (8.5-10.1); CREATININE 1.1 mg/dl (0.60-1.20); POTASSIUM 4.6 mmol/L (3.5-5.1)
[2016-04-09 07:50] LABS: BASO ABS # 0.01 K/uL (0-0.2); COMPLETE YES; IG% 0.6 %; LYMPH % 6.3 %; LYMPH ABS # 1.64 K/uL (1.2-3.4); MONO % 3.6 %; NEUT % 89.5 %
--- NOTE | 2016-04-09 09:37 | Orthopedic Progress Note ---
Orthopedic Progress Note Date of Service Apr 09, 2016. Subjective Post OP Day: 1 Reports: feeling well, pain controlled w PO medications, Denies: SOB, calf pain , chest pain, complaints, light headedness, nausea / vomiting Additional Notes: Doing well, no issues, stable medically Objective calves soft nontender, N/V intact, capillary refill less than 2 sec., dressing C /D/I, A&O x3, toes mobile, hemovac drainage Date Time Temp Pulse Resp B/P Pulse Ox O2 Delivery O2 Flow Rate FiO2 04/09/16 08:20 Room Air 04/09/16 07:22 36.9 63 16 111/74 97 Room Air 04/09/16 03:16 36.8 54 18 100/67 92 Room Air 04/08/16 23:32 36.5 73 16 97/64 94 Room Air 04/08/16 23:15 Room Air 04/08/16 21:09 36.5 66 16 112/77 98 Nasal Cannula 2.0 04/08/16 18:40 36.8 66 16 93/61 99 Nasal Cannula 3.0 04/08/16 17:42 36.9 69 16 88/56 98 Nasal Cannula 2.0 04/08/16 16:28 36.6 63 16 92/61 98 Nasal Cannula 4.0 04/08/16 16:15 98 Nasal Cannula 4.0 04/08/16 15:28 36.5 61 16 81/51 98 Nasal Cannula 4.0 04/08/16 15:02 36.5 65 18 91/58 96 Nasal Cannula 4.0 04/08/16 14:26 Nasal Cannula 4.0 04/08/16 14:26 36.4 68 12 123/70 95 Nasal Cannula 4.0 04/08/16 14:01 36.3 62 16 120/69 97 Nasal Cannula 4 04/08/16 13:29 81 17 04/08/16 13:29 81 17 96 04/08/16 13:28 115/73 04/08/16 13:24 76 16 04/08/16 13:24 75 16 91 04/08/16 13:23 109/69 04/08/16 13:19 74 15 04/08/16 13:19 77 15 95 04/08/16 13:14 72 15 04/08/16 13:14 72 15 97 04/08/16 13:13 115/67 04/08/16 13:09 71 13 04/08/16 13:09 72 13 100 04/08/16 13:09 36.3 72 14 113/71 100 Mask 10 Laboratory Results 24 Hours: Test 04/09/16 06:54 White Blood Count 26.00 K/uL Red Blood Count 4.15 M/uL Hemoglobin 13.1 g/dL Hematocrit 38.4 % Mean Corpuscular Volume 92.5 fL Mean Corpuscular Hemoglobin 31.6 pg Mean Corpuscular Hemoglobin Concent 34.1 g/dl Platelet Count 313 K/uL Mean Platelet Volume 9.2 fL Neutrophils (%) (Auto) 89.5 % Lymphocytes (%) (Auto) 6.3 % Monocytes (%) (Auto) 3.6 % Eosinophils (%) (Auto) 0.0 % Basophils (%) (Auto) 0.0 % Neutrophils # (Auto) 23.27 K/uL Lymphocytes # (Auto) 1.64 K/uL Monocytes # (Auto) 0.93 K/uL Eosinophils # (Auto) 0.00 K/uL Basophils # (Auto) 0.01 K/uL Assessment & Plan Assessment: s/p lumbar fusion l4-s1 Plan: Pain control, PT, DVT prophylaxis, home tomorrow
[2016-04-09] MEDS ORDERED: ALBUT/IPRATROP 3MG/0.5MG NEB 3 ML VIAL INH SCH (10:30)
[2016-04-09] MEDS ORDERED: NURSING VERBAL MED ORDER ONE (17:00)
[2016-04-09] MEDS: DOCUSATE SODIUM/SENNA 50/8.6MG TAB PO SCH (20:38)
[2016-04-10] MEDS: ONDANSETRON INJ 2 MG/ML 2 ML VIAL IV PRN ×2 (00:54→11:57)
[2016-04-10] MEDS: OXYCODONE HCL IR 5 MG TAB (IMMEDIATE RELEASE) PO PRN ×4 (00:55→17:48)
[2016-04-10] MEDS: LEVOTHYROXINE 200 MCG TAB PO SCH (05:39)
[2016-04-10] MEDS: POLYETHYLENE (MIRALAX) 17 GM PACK PO SCH ×2 (05:39→11:52)
[2016-04-10 08:02] VITALS: BP 120/78; PULSE 74; TEMP 37; O2SAT 96
--- NOTE | 2016-04-10 12:30 | Orthopedic Progress Note ---
Orthopedic Progress Note Date of Service Apr 10, 2016. Subjective Additional Notes: Doing well today. No complaints or adverse issues, feels she is progressing. Objective calves soft nontender, N/V intact, dressing C/D/I, toes mobile, hemovac drainage Date Time Temp Pulse Resp B/P Pulse Ox O2 Delivery O2 Flow Rate FiO2 04/10/16 08:02 37.0 74 16 120/78 96 Room Air 04/10/16 08:00 Room Air 04/09/16 23:40 Room Air 04/09/16 23:38 36.9 69 16 115/82 95 Room Air 04/09/16 20:00 96 Room Air 04/09/16 17:22 96 Room Air 04/09/16 16:07 37.1 83 18 129/60 96 Room Air Assessment & Plan Assessment: s/p lumbar fusion l4-s1 Plan: Discharge home
[2016-04-10 13:51] VITALS: BP 120/78; PULSE 74; TEMP 37; O2SAT 96
[2016-04-10 15:10] VITALS: BP 90/59; PULSE 89; TEMP 36.9; O2SAT 96
--- NOTE | 2016-04-22 10:55 | DISCHARGE SUMMARY ---
PRINCIPAL DIAGNOSIS: Reherniation of lumbar disc L5-S1, lumbar disc degeneration L4-L5, L5-S1. POSTOPERATIVE DIAGNOSIS: Same. PROCEDURE: Revision laminectomy L5 with a right L5-S1 microdiscectomy, pedicle screw instrumentation L4-L5 and S1, posterolateral fusion L4-S1, right L5-S1 interbody and iliac crest bone marrow aspirate. SURGEON: Dr. Sanju Rosen. STRIKER OFF: Jose Guadalupe Garcia PA-C. HISTORY OF PRESENT ILLNESS: Please refer to EMR. HOSPITAL COURSE: On 04/08/2016 Ms. Miller was admitted to [facility] with the above diagnosis. She was taken to preoperative holding where she was identified, evaluated and cleared for surgical procedure. She was transported to the operating room, introduced with general endotracheal anesthesia, sterile conditions were set and she successfully underwent the above procedure without complication or issue. She was awakened in stable and satisfactory condition and transported to postoperative recovery. Here vital signs and pain were monitored and managed. She was then taken to the orthopedic floor for continued postoperative care. Throughout her stay her pain was well managed. Vital signs and labs were monitored and direction was provided as necessary. DVT and GI prophylactic measures were taken. She participated in physical therapy with noted progress. On 04/10/2016 after provider evaluation she was indicated for discharge home. On this date, she was discharged from [facility]. DISPOSITION: Home. DISPOSITION CONDITION: Stable. NOTED COMPLICATIONS OR ISSUES: Zero. DISCHARGE INSTRUCTIONS: Please refer to EMR.
[2016-07-29] MEDS ORDERED: CYCL10TA6 PO (00:24)
[2016-07-29] MEDS ORDERED: EPP3/2 IM (00:26)
[2016-07-29] MEDS ORDERED: DIPH25CA65 PO (00:27)
[2016-07-29] MEDS ORDERED: VNTHFA/IN INH (08:52)
[2016-07-29] MEDS ORDERED: LEVO200T6 PO (11:38)
== END 2016-04-10 18:45 | disposition home or self-care (01) | DRG 460 ==
LOC: ENRESERVDT → ENRESERVTM → C.ACU 07:45 → C.MSW 09:30
PROVIDERS: ADMIT Orthopaedic Surgery Orthopaedic Surgery of the Spine; ATTEND Orthopaedic Surgery Orthopaedic Surgery of the Spine
PROC: 0SG0071 Fusion of Lumbar Vertebral Joint with Autologous Tissue Substitute, Posterior Approach, Posterior Column, Open Approach (ICD-10-PCS; principal; 2016-04-08 10:00)
PROC: 0SG3071 Fusion of Lumbosacral Joint with Autologous Tissue Substitute, Posterior Approach, Posterior Column, Open Approach (ICD-10-PCS; principal; 2016-04-08 10:00)
PROC: 07DR3ZZ Extraction of Iliac Bone Marrow, Percutaneous Approach (ICD-10-PCS; principal; 2016-04-08 10:00)
PROC: 0SB40ZZ Excision of Lumbosacral Disc, Open Approach (ICD-10-PCS; principal; 2016-04-08 10:00)
PROC: 0SG30AJ Fusion of Lumbosacral Joint with Interbody Fusion Device, Posterior Approach, Anterior Column, Open Approach (ICD-10-PCS; principal; 2016-04-08 10:00)
DX: M51.27 Other intervertebral disc displacement, lumbosacral region (principal); M51.36 Other intervertebral disc degeneration, lumbar region; M51.37 Other intervertebral disc degeneration, lumbosacral region; J45.909 Unspecified asthma, uncomplicated; F17.210 Nicotine dependence, cigarettes, uncomplicated; E03.9 Hypothyroidism, unspecified

== ENCOUNTER 2016-07-29 19:22 | Emergency (ER) | payer BC, OTHER ==
[~2016-07-29] VITALS: Ht 162.6 cm; Wt 106.6 kg
[~2016-07-29 19:22] MED LIST changes: -CEFAZOLIN 2000 MG/60 ML D5W IV SCH; -CLINDAMYCIN 600 MG/54 ML D5W 54 ML IV SCH; +CYCL10TA6 PO; -CeleBREX 200 MG CAP PO SCH; +DIPH25CA65 PO; +EPP3/2 IM; -LACTATED RINGER'S 1000ML 1,000 ML IV SCH; +LEVO200T6 PO; +OXYC-57 PO; -PREGABALIN 75 MG CAP PO SCH; -TRAM-10 PO; +VNTHFA/IN INH
[2016-07-29 19:34] VITALS: Ht 162.6 cm; Wt 106.6 kg
[2016-07-29 19:53] VITALS: O2SAT 98
[2016-07-29] MEDS ORDERED: ALBUT/IPRATROP 3MG/0.5MG NEB 3 ML VIAL INH STA (20:03)
[2016-07-29 20:17] LABS: BASO % 0.2 %; BASO ABS # 0.02 K/uL (0-0.2); COMPLETE YES; EOS % 0.2 %; HEMATOCRIT 40.6 % (37-47); IG% 0.4 %; LYMPH % 34.1 %; LYMPH ABS # 3.35 K/uL (1.2-3.4); MEAN CELL VOLUME 92.5 fL (80-100); MEAN CORPUSCULAR HEMOGLOBIN 30.8 pg (25-34); MEAN CORPUSCULAR HGB CONC 33.3 g/dl (32-36); MEAN PLATELET VOLUME 8.9 fL (7.4-10.4); MONO % 5.6 %; NEUT % 59.5 %; PLATELET COUNT 330 K/uL (130-400); RED BLOOD COUNT 4.39 M/uL (4.2-5.4); WHITE BLOOD COUNT 9.83 K/uL (4.8-10.8)
[2016-07-29 20:33] LABS: BLOOD UREA NITROGEN 6 mg/dl (7-18); BUN/CREATININE RATIO 5.7 (10-20); CALCIUM 8.7 mg/dl (8.5-10.1); CARBON DIOXIDE 29 mmol/L (21-32); CHLORIDE 108 mmol/L (98-107); POTASSIUM 3.3 mmol/L (3.5-5.1); SODIUM 143 mmol/L (136-145)
--- NOTE | 2016-07-29 20:44 | DIAGNOSTIC IMAGING REPORT ---
TWO VIEW CHEST CLINICAL HISTORY: Atypical chest pain. FINDINGS: PA and lateral chest radiographs are compared to study dated 03/03/2016. The examination is degraded by large body habitus. The cardiomediastinal silhouette is unremarkable. There is minimal bibasilar atelectasis. The lungs and pleural spaces are otherwise clear. There is no pneumothorax. The bony thorax appears intact. IMPRESSION: No active disease in the chest. Electronically signed by: Fredis Wren M.D. 07/29/2016 8:42 PM Dictated Date/Time: 07/29/2016 8:41 PM
[2016-07-29 21:01] LABS: GLUCOSE 86 mg/dl (70-99)
[2016-07-29] MEDS ORDERED: OXYC-57 PO (21:16)
[2016-07-29] MEDS ORDERED: ALBINS/ INH (21:16)
[2016-07-29] MEDS ORDERED: LORA10TA5 PO (21:17)
[2016-07-29] MEDS ORDERED: OPTIRAY 320 IV PRN (21:30)
--- NOTE | 2016-07-29 21:41 | DIAGNOSTIC IMAGING REPORT ---
CT ANGIOGRAM OF THE CHEST CLINICAL HISTORY: Atypical chest pain. COMPARISON STUDY: Chest x-ray dated 07/29/2016. TECHNIQUE: Following the IV administration of 97 cc of Optiray 320, CT angiogram of the chest was performed from the upper abdomen to the thoracic inlet utilizing the pulmonary embolus protocol. Images are reviewed in the axial, sagittal, and coronal planes. 3-D MIPS images are created and assessed. IV contrast was administered without complication. CT DOSE: 572.40 mGy.cm FINDINGS: Thyroid: Atrophic. Thoracic aorta: The thoracic aorta is normal in caliber and demonstrates standard 3-vessel arch anatomy. No dissection is seen. Pulmonary vasculature: The pulmonary trunk is normal in caliber. There are no filling defects identified in main, lobar, or segmental pulmonary branches to suggest pulmonary embolus. Heart: The heart is normal in size and configuration, and without pericardial effusion. Lungs and pleural spaces: The lungs and pleural spaces are clear note minimal dependent atelectasis. The trachea and central airways are patent. Mediastinum: There is no mediastinal lymphadenopathy. Luana: Clear. Axillae: There is no axillary lymphadenopathy. Upper abdomen: Partially visualized upper abdominal viscera is within normal limits. Skeletal structures: No lytic or blastic bony lesions are seen. IMPRESSION: 1. There is no evidence of pulmonary embolus in the main, lobar, or segmental pulmonary arteries. 2. The lungs are clear. Electronically signed by: Fredis Wren M.D. 07/29/2016 9:39 PM Dictated Date/Time: 07/29/2016 9:35 PM
[2016-07-29] MEDS ORDERED: ALBU0.633 NEB (22:21)
--- NOTE | 2016-07-29 22:21 | EMERGENCY ROOM VISIT NOTE ---
History First contact with patient: 19:44 Chief Complaint: CARDIAC ASSESSMENT Stated Complaint: CHEST PAIN R SIDE Nursing Triage Summary: Patient states she was spray painting tonight and developed midsternal chest pain that worsens with deep inspiration. Hx: COPD. History of Present Illness The patient is a 31 year old female who presents to the Emergency Room with complaints of right-sided chest pain which began a few hours ago. The patient reports that she was spray painting today, and shortly afterward developed right -sided chest pain. She states it is painful to take a deep breath. She reports a history of COPD. She used her inhaler without relief. She does have a nebulizer at home but is out of albuterol. The patient states she is short of breath, but this has been chronic since her back surgery. She rates her discomfort a 7/10. She did not take any medication for her symptoms. She is a smoker. She does not take control pills. She denies any recent long travel. Review of Systems A complete 10 point review of systems was reviewed with the patient with pertinent positives and negatives as per history of present illness. All else were negative. 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 (16) Tobacco Use Disorder (17) Upper respiratory infection (18) Work related injury Surgical Problems: (1) H/O bilateral salpingectomy (2) H/O lumbar discectomy (3) H/O tubal ligation (4) History of hysterectomy (5) Status post tonsillectomy and adenoidectomy (6) Tubal Ligation Status Family History FH: cancer FH: diabetes mellitus FH: gallbladder disease FH: hypertension FH: kidney disease FH: seizures Social History Smoking Status: Current Every Day Smoker Alcohol Use: none Marital Status: single Occupation Status: employed Current/Historical Medications Scheduled Albuterol Sulfate (Albuterol Sulfate), 1 VIAL NEB QID Levothyroxine Sodium (Levothyroxine Sodium), 200 MCG PO QAM Scheduled PRN Albuterol Hfa (Ventolin Hfa), 2 PUFF INH Q4 PRN for Shortness of Breath Albuterol Sulf (Proventil 0.083% 2.5MG/3ML), 2.5 MG INH Q4 PRN for SOB/Wheezing Cyclobenzaprine Hcl (Flexeril), 10 MG PO TID PRN for SPASMS Diphenhydramine Hcl (Benadryl Allergy), 25 MG PO BID PRN for ALLERGIC REACTION Epinephrine (Epipen), 0.3 MG IM UD PRN for ALLERGIC REACTION Loratadine (Claritin), 10 MG PO DAILY PRN for ALLERGIC REACTION Oxycodone/Acetaminophen 5MG/325MG (Percocet 5MG/325MG), 1-2 TABLETS PO Q4H PRN for Pain Allergies Coded Allergies: BEE STING (Verified Allergy, Severe, THROAT SWELLS,MOUTH, 04/08/16) Cat Dander (Verified Allergy, Severe, EYES AND THROAT SWELLS, 04/08/16) Dog Dander (Verified Allergy, Severe, EYES AND THROAT SWELLS, 04/08/16) Molds & Smuts (Verified Allergy, Severe, EYES AND THROAT SWELLS, 04/08/16) Moxifloxacin (Verified Allergy, Severe, THROAT SWELLING, 04/08/16) Sulfamethoxazole w/Trimethoprim (Verified Allergy, Severe, THROAT SWELLS, 04/08/16) Penicillins (Verified Allergy, Intermediate, HIVES, 04/08/16) Dust Mite Extract (Verified Allergy, Unknown, STUFFY NOSE, 04/08/16) Physical Exam Vital Signs Date Time Temp Pulse Resp B/P Pulse Ox O2 Delivery O2 Flow Rate FiO2 07/29/16 22:38 36.8 85 18 130/89 98 07/29/16 20:43 85 07/29/16 19:54 98 Room Air 07/29/16 19:53 98 Room Air 07/29/16 19:34 36.8 89 18 130/89 98 Room Air Physical Exam VITALS: Vitals are noted on the nurse's note and reviewed by myself. Vital signs stable. GENERAL: This is a 31-year-old female, in no acute distress, nondiaphoretic, well-developed well-nourished. HEENT: Normocephalic. PERRLA. EOMI. Nares patent. Mucous membranes moist. Neck is supple without nuchal rigidity. HEART: Regular rate and rhythm without murmurs gallops or rubs. LUNGS: Mild end expiratory wheezes throughout all lung lutz. Lungs are otherwise clear. No retractions or accessory muscle use. NEURO: Patient was alert and oriented to person place and time. Medical Decision & Procedures ER Provider Diagnostic Interpretation: TWO VIEW CHEST FINDINGS: PA and lateral chest radiographs are compared to study dated 03/03/2016. The examination is degraded by large body habitus. The cardiomediastinal silhouette is unremarkable. There is minimal bibasilar atelectasis. The lungs and pleural spaces are otherwise clear. There is no pneumothorax. The bony thorax appears intact. IMPRESSION: No active disease in the chest. CT ANGIOGRAM OF THE CHEST FINDINGS: Thyroid: Atrophic. Thoracic aorta: The thoracic aorta is normal in caliber and demonstrates standard 3-vessel arch anatomy. No dissection is seen. Pulmonary vasculature: The pulmonary trunk is normal in caliber. There are no filling defects identified in main, lobar, or segmental pulmonary branches to suggest pulmonary embolus. Heart: The heart is normal in size and configuration, and without pericardial effusion. Lungs and pleural spaces: The lungs and pleural spaces are clear note minimal dependent atelectasis. The trachea and central airways are patent. Mediastinum: There is no mediastinal lymphadenopathy. Luana: Clear. Axillae: There is no axillary lymphadenopathy. Upper abdomen: Partially visualized upper abdominal viscera is within normal limits. Skeletal structures: No lytic or blastic bony lesions are seen. IMPRESSION: 1. There is no evidence of pulmonary embolus in the main, lobar, or segmental pulmonary arteries. 2. The lungs are clear. Laboratory Results 07/29/16 19:50 Red Blood Count 4.39, Mean Corpuscular Volume 92.5, Mean Corpuscular Hemoglobin 30.8, Mean Corpuscular Hemoglobin Concent 33.3, Mean Platelet Volume 8.9, Neutrophils (%) (Auto) 59.5, Lymphocytes (%) (Auto) 34.1, Monocytes (%) (Auto) 5.6, Eosinophils (%) (Auto) 0.2, Basophils (%) (Auto) 0.2, Neutrophils # (Auto) 5.85, Lymphocytes # (Auto) 3.35, Monocytes # (Auto) 0.55, Eosinophils # (Auto) 0.02, Basophils # (Auto) 0.02 07/29/16 19:50 Test 07/29/16 19:50 White Blood Count 9.83 K/uL (4.8-10.8) Red Blood Count 4.39 M/uL (4.2-5.4) Hemoglobin 13.5 g/dL (12.0-16.0) Hematocrit 40.6 % (37-47) Mean Corpuscular Volume 92.5 fL (80-100) Mean Corpuscular Hemoglobin 30.8 pg (25-34) Mean Corpuscular Hemoglobin Concent 33.3 g/dl (32-36) Platelet Count 330 K/uL (130-400) Mean Platelet Volume 8.9 fL (7.4-10.4) Neutrophils (%) (Auto) 59.5 % Lymphocytes (%) (Auto) 34.1 % Monocytes (%) (Auto) 5.6 % Eosinophils (%) (Auto) 0.2 % Basophils (%) (Auto) 0.2 % Neutrophils # (Auto) 5.85 K/uL (1.4-6.5) Lymphocytes # (Auto) 3.35 K/uL (1.2-3.4) Monocytes # (Auto) 0.55 K/uL (0.11-0.59) Eosinophils # (Auto) 0.02 K/uL (0-0.5) Basophils # (Auto) 0.02 K/uL (0-0.2) RDW Standard Deviation 43.1 fL (36.4-46.3) RDW Coefficient of Variation 12.7 % (11.5-14.5) Immature Granulocyte % (Auto) 0.4 % Immature Granulocyte # (Auto) 0.04 K/uL (0.00-0.02) Nucleated RBC Absolute Count (auto) 0.06 K/uL (0-0) Nucleated Red Blood Cells % 0.6 % D-Dimer 710 ug/L FEU (0-500) Anion Gap 6.0 mmol/L (3-11) Est Creatinine Clear Calc Drug Dose 86.7 ml/min Estimated GFR () 76.4 Estimated GFR (Non- 65.9 BUN/Creatinine Ratio 5.7 (10-20) Calcium Level 8.7 mg/dl (8.5-10.1) Troponin I < 0.015 ng/ml (0-0.045) Thyroid Stimulating Hormone (TSH) 124.000 uIu/ml (0.300-4.500) Free Thyroxine 0.69 ng/dl (0.80-1.60) Free Triiodothyronine 2.12 pg/ml (2.30-4.20) Chemistry Specimen Hemolysis Medications Administered Medications (Trade) Dose Ordered Sig/Cortez Route Start Time Stop Time Status Last Admin Dose Admin Albuterol/ Ipratropium (Duoneb) 3 ml NOW STAT INH 07/29/16 20:03 07/29/16 20:06 DC 07/29/16 20:26 3 ML ED Course The patient was evaluated as above. Labs were drawn and IV access was obtained. Patient was medicated with a DuoNeb treatment. Patient was reevaluated and had some improvement. I discussed her elevated TSH. The patient has not taken her levothyroxine for several months due to insurance/payment issues. She was encouraged to restart this medication as soon as possible. Patient has an elevated d-dimer. CT of the chest was ordered. Discharge instructions were reviewed with the patient. The patient verbalized understanding of my assessment and treatment plan and was discharged home in good condition. Medical Decision Differential diagnosis includes bronchitis, pneumonia, asthma exacerbation, COPD exacerbation, pulmonary embolism, among others. The patient is a 31-year-old female who presents today complaining of shortness of breath and right-sided chest pain. Labs revealed no concerning leukocytosis , anemia or electrolyte abnormalities. D-dimer was found to be elevated. CT of the chest was performed and showed no evidence of pulmonary embolism or pneumonia. Patient did feel better after an albuterol treatment. Her TSH was found to be quite elevated which is consistent with the patient's history of not taking her thyroid medication for several weeks. She was instructed to restart this as soon as possible. The patient states she has not been taking it due to insurance issues but is receiving insurance soon and will be able to start the medication again. She will be given a prescription for albuterol for nebulizer treatments. She was instructed to follow-up with her primary care provider this week or return here sooner for worsening or new/concerning symptoms. Based on the patient's presentation and work up, I feel the patient is stable for outpatient treatment. The patient was educated to return to the emergency department for any worsening of their current condition or new/concerning symptoms. She will follow up with her PCP. Impression Primary Impression: Right-sided chest pain Departure Information Dispostion Home / Self-Care Condition GOOD Prescriptions Albuterol Sulfate (ALBUTEROL SULFATE) 0.63 Mg/3 Ml Neb 1 VIAL NEB QID for 12 Days, #150 ML Prov: Marivel Walsh PA-C 07/29/16 Referrals Karla Yuen D.O. (PCP) Patient Instructions My [facility] Additional Instructions You have been treated in the Emergency Department for your Non-Cardiac Chest Pain. Laboratory results and Imaging Studies have ruled out any cardiac or pulmonary cause of your chest pain. For pain control, you can use the following [id number] medicines (if >12 yo): - Regular strength (325mg/tab) Tylenol (acetaminophen) 2 tabs every 4-6 hours as needed. Do not exceed 12 tablets in a 24 hour period. Avoid taking more than 4 grams (4000 mg) of Tylenol per day. This includes any other sources of acetaminophen you may take on a regular basis. - Regular strength (200 mg/tab) Advil (ibuprofen) 1-2 tabs every 4-6 hours as needed. Do not exceed a dose of 3200 mg per day. Take your thyroid medication as prescribed. You should schedule a follow-up appointment with your Primary Care Provider in 2 -3 days for further evaluation from today's Emergency Department visit. Return to the Emergency Department if your current symptoms worsen despite treatment course outlined above, or if you develop any of the following symptoms : worsening chest pain, associated jaw/arm pain, nausea, dizziness, shortness of breath, bloody cough, or fainting.
[2016-07-29 22:38] VITALS: BP 130/89; PULSE 85; TEMP 36.8; O2SAT 98
== END 2016-07-29 22:38 | disposition home or self-care (01) ==
LOC: C.EDB 19:23 → C.EDA 22:38
DX: R07.9 Chest pain, unspecified (principal); R06.02 Shortness of breath; J45.909 Unspecified asthma, uncomplicated; E03.9 Hypothyroidism, unspecified; M51.26 Other intervertebral disc displacement, lumbar region; F17.200 Nicotine dependence, unspecified, uncomplicated; Z87.440 Personal history of urinary (tract) infections; Z98.51 Tubal ligation status; Z90.710 Acquired absence of both cervix and uterus; Z98.890 Other specified postprocedural states; Z91.030 Bee allergy status; Z88.2 Allergy status to sulfonamides; Z91.09 Other allergy status, other than to drugs and biological substances; Z80.9 Family history of malignant neoplasm, unspecified; Z83.3 Family history of diabetes mellitus; Z83.79 Family history of other diseases of the digestive system; Z82.49 Family history of ischemic heart disease and other diseases of the circulatory system; Z84.1 Family history of disorders of kidney and ureter; Z82.0 Family history of epilepsy and other diseases of the nervous system

== ENCOUNTER 2017-02-14 13:21 | Emergency (ER) | payer BC, OTHER ==
[~2017-02-14] VITALS: Ht 121.9 cm; Wt 104.3 kg
[~2017-02-14 13:21] MED LIST changes: +ALBINS/ INH; -ALBU1NEB10 INH; +LORA10TA6 PO
[2017-02-14 13:29] VITALS: TEMP 36.8; Ht 121.9 cm; Wt 104.3 kg
[2017-02-14] MEDS ORDERED: ALBUT/IPRATROP 3MG/0.5MG NEB 3 ML VIAL INH STA (13:54)
[2017-02-14] MEDS ORDERED: KETOROLAC TROMETHAMINE 15 MG/ML VIAL IV STA (13:54)
[2017-02-14] MEDS ORDERED: KETOROLAC TROMETHAMINE 30 MG/ML VIAL ONE (14:09)
[2017-02-14] MEDS ORDERED: DOXY-300 PO (14:34)
[2017-02-14 14:48] LABS: REVIEW REQ? YES; URINE APPEARANCE CLOUDY (CLEAR); URINE BILIRUBIN NEG (NEG); URINE COLOR YELLOW; URINE EPITHELIAL CELL AUTO >30 /lpf (0-5); URINE NITRITE NEG (NEG); URINE SPECIFIC GRAVITY 1.023 (1.000-1.030); UROBILINOGEN NEG (NEG); ZZUR CULT IF INDIC CLEAN CATCH YES
[2017-02-14 14:49] LABS: MANUAL MICROSCOPIC REQUIRED? NO
[2017-02-14 15:03] LABS: BUN/CREATININE RATIO 8.4 (10-20); CALCIUM 8.6 mg/dl (8.5-10.1); CREATININE 1.05 mg/dl (0.60-1.20); POTASSIUM 3.9 mmol/L (3.5-5.1)
--- NOTE | 2017-02-14 15:13 | DIAGNOSTIC IMAGING REPORT ---
CHEST 2 VIEWS ROUTINE HISTORY: cough COMPARISON: Chest 07/29/2016. FINDINGS: There is a new airspace opacity within the right middle lobe. The left lung is clear. No pleural fusions. No pneumothorax. IMPRESSION: A new right middle lobe airspace opacity consistent with a pneumonia. Recommend 2 month chest x-ray follow up to ensure resolution. Electronically signed by: Edwin Fisher M.D. 02/14/2017 3:12 PM Dictated Date/Time: 02/14/2017 3:11 PM
--- NOTE | 2017-02-14 15:25 | EMERGENCY ROOM VISIT NOTE ---
History First contact with patient: 13:32 Chief Complaint: SORETHROAT Stated Complaint: SORE NECK,CHEST CONGESTION,SORE THROAT History of Present Illness The patient is a 31 year old female who presents to the Emergency Room with complaints of cough which began 6 days ago. The patient states her symptoms feel like previous episodes of pneumonia. She was seen by her primary care provider 4 days ago and started on doxycycline. She states that her symptoms are not improving. Her cough is worse when she is lying down flat. She reports she has had hot and cold sweats but has not checked her temperature. She has developed some urinary burning since starting the doxycycline and is concerned she could have a UTI as well. She has been taking Mucinex as well as Tylenol Cold and flu [id number] with no relief. She did not receive a flu vaccine this year. Her mother was diagnosed with the flu a few weeks ago. She states that at times, she has been coughing so hard she vomits. She denies significant shortness of breath. She is a smoker. She denies recent travel out of the country. She rates her overall discomfort a 5/10. She does report some pain at the base of the skull/upper neck. She denies any stiffness of the neck. She denies sore throat, earache, abdominal pain or nausea. She has had some diarrhea since starting the antibiotic. She denies any recent hospitalizations. Review of Systems A complete 10 point review of systems was reviewed with the patient with pertinent positives and negatives as per history of present illness. All else were negative. 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 (16) Tobacco Use Disorder (17) Upper respiratory infection (18) Work related injury Surgical Problems: (1) H/O bilateral salpingectomy (2) H/O lumbar discectomy (3) H/O tubal ligation (4) History of hysterectomy (5) Status post tonsillectomy and adenoidectomy (6) Tubal Ligation Status Family History FH: cancer FH: diabetes mellitus FH: gallbladder disease FH: hypertension FH: kidney disease FH: seizures Social History Smoking Status: Current Every Day Smoker Alcohol Use: none Marital Status: single Occupation Status: employed Current/Historical Medications Scheduled Doxycycline (Monohydrate) (Doxycycline), 1 CAP PO BID Doxycycline Hyclate (Vibramycin), 100 MG PO BID Levothyroxine Sodium (Levothyroxine Sodium), 200 MCG PO QAM Scheduled PRN Albuterol Hfa (Ventolin Hfa), 2 PUFF INH Q4 PRN for Shortness of Breath Albuterol Sulf (Proventil 0.083% 2.5MG/3ML), 2.5 MG INH Q4 PRN for SOB/Wheezing Cyclobenzaprine Hcl (Flexeril), 10 MG PO TID PRN for SPASMS Diphenhydramine Hcl (Benadryl Allergy), 25 MG PO BID PRN for ALLERGIC REACTION Epinephrine (Epipen), 0.3 MG IM UD PRN for ALLERGIC REACTION Loratadine (Claritin), 10 MG PO DAILY PRN for ALLERGIC REACTION Oxycodone/Acetaminophen 5MG/325MG (Percocet 5MG/325MG), 1-2 TABLETS PO Q4H PRN for Pain Physical Exam Vital Signs Date Time Temp Pulse Resp B/P (MAP) Pulse Ox O2 Delivery O2 Flow Rate FiO2 02/14/17 16:25 77 18 108/88 96 02/14/17 15:13 74 20 125/69 96 Room Air 02/14/17 13:29 36.8 86 18 133/87 97 Room Air Physical Exam VITALS: Vitals are noted on the nurse's note and reviewed by myself. Vital signs stable. GENERAL: This is a 31-year-old female, in no acute distress, nondiaphoretic, well-developed well-nourished. SKIN: The skin was without rashes. EARS: External auditory canals clear. Tympanic membranes with mild injection bilaterally. No effusions. EYES: Pupils equal round and reactive to light and accommodation. MOUTH: Mucous membranes moist. Tonsils are not enlarged. Pharynx without erythema or exudate. NECK: Supple without nuchal rigidity. No lymphadenopathy. No meningismus. Kernig's and Brudzinski's negative. HEART: Regular rate and rhythm without murmurs gallops or rubs. LUNGS: There is slight expiratory wheezing throughout all lung lutz, right greater than left. No retractions or accessory muscle use. ABDOMEN: Positive bowel sounds x 4. Soft, nontender, without masses or organomegaly. NEURO: Patient was alert and oriented to person place and time. Medical Decision & Procedures ER Provider Diagnostic Interpretation: CHEST 2 VIEWS ROUTINE HISTORY: cough COMPARISON: Chest 07/29/2016. FINDINGS: There is a new airspace opacity within the right middle lobe. The left lung is clear. No pleural fusions. No pneumothorax. IMPRESSION: A new right middle lobe airspace opacity consistent with a pneumonia. Recommend 2 month chest x-ray follow up to ensure resolution. Laboratory Results 02/14/17 15:45 Red Blood Count 4.02, Mean Corpuscular Volume 94.8, Mean Corpuscular Hemoglobin 31.6, Mean Corpuscular Hemoglobin Concent 33.3, Mean Platelet Volume 8.9, Neutrophils (%) (Auto) 55.1, Lymphocytes (%) (Auto) 35.4, Monocytes (%) (Auto) 8.7, Eosinophils (%) (Auto) 0.0, Basophils (%) (Auto) 0.5, Neutrophils # (Auto) 3.60, Lymphocytes # (Auto) 2.31, Monocytes # (Auto) 0.57, Eosinophils # (Auto) 0.00, Basophils # (Auto) 0.03 02/14/17 14:23 Test 02/14/17 14:10 02/14/17 14:14 02/14/17 14:23 02/14/17 15:45 Urine Color YELLOW Urine Appearance CLOUDY (CLEAR) Urine pH 6.0 (4.5-7.5) Urine Specific [place] 1.023 (1.000-1.030) Urine Protein NEG (NEG) Urine Glucose (UA) NEG (NEG) Urine Ketones NEG (NEG) Urine Occult Blood NEG (NEG) Urine Nitrite NEG (NEG) Urine Bilirubin NEG (NEG) Urine Urobilinogen NEG (NEG) Urine Leukocyte Esterase MODERATE (NEG) Urine WBC (Auto) 10-30 /hpf (0-5) Urine RBC (Auto) 0-4 /hpf (0-4) Urine Hyaline Casts (Auto) 5-10 /lpf (0-5) Urine Epithelial Cells (Auto) >30 /lpf (0-5) Urine Bacteria (Auto) 2+ (NEG) Urine Test NEG (NEG) Influenza Type A Antigen Neg for Influ A (NEG) Influenza Type B Antigen Neg for Influ B (NEG) Anion Gap 6.0 mmol/L (3-11) Est Creatinine Clear Calc Drug Dose 63.1 ml/min Estimated GFR () 80.8 Estimated GFR (Non- 69.7 BUN/Creatinine Ratio 8.4 (10-20) Calcium Level 8.6 mg/dl (8.5-10.1) White Blood Count 6.53 K/uL (4.8-10.8) Red Blood Count 4.02 M/uL (4.2-5.4) Hemoglobin 12.7 g/dL (12.0-16.0) Hematocrit 38.1 % (37-47) Mean Corpuscular Volume 94.8 fL (80-100) Mean Corpuscular Hemoglobin 31.6 pg (25-34) Mean Corpuscular Hemoglobin Concent 33.3 g/dl (32-36) Platelet Count 223 K/uL (130-400) Mean Platelet Volume 8.9 fL (7.4-10.4) Neutrophils (%) (Auto) 55.1 % Lymphocytes (%) (Auto) 35.4 % Monocytes (%) (Auto) 8.7 % Eosinophils (%) (Auto) 0.0 % Basophils (%) (Auto) 0.5 % Neutrophils # (Auto) 3.60 K/uL (1.4-6.5) Lymphocytes # (Auto) 2.31 K/uL (1.2-3.4) Monocytes # (Auto) 0.57 K/uL (0.11-0.59) Eosinophils # (Auto) 0.00 K/uL (0-0.5) Basophils # (Auto) 0.03 K/uL (0-0.2) RDW Standard Deviation 46.4 fL (36.4-46.3) RDW Coefficient of Variation 13.4 % (11.5-14.5) Immature Granulocyte % (Auto) 0.3 % Immature Granulocyte # (Auto) 0.02 K/uL (0.00-0.02) Medications Administered Medications (Trade) Dose Ordered Sig/Cortez Route Start Time Stop Time Status Last Admin Dose Admin Ketorolac Tromethamine (Toradol Inj) 15 mg NOW STAT IV 02/14/17 13:54 02/14/17 13:56 DC 02/14/17 13:54 15 MG Albuterol/ Ipratropium (Duoneb) 3 ml NOW STAT INH 02/14/17 13:54 02/14/17 13:56 DC 02/14/17 14:25 3 ML Medical Decision Differential diagnosis includes pneumonia, upper respiratory infection, viral illness, among others. The patient is a 31-year-old female who presents today complaining of cough. Patient does have some expiratory wheezes on exam. X-ray does show a right middle lobe infiltrate. Labs revealed no leukocytosis. Patient is afebrile. She was treated with a DuoNeb treatment with some improvement. Her vital signs are stable. She was not hypoxic or tachycardic. The patient started doxycycline a few days ago. I do feel this is an appropriate antibiotic choice given all of her allergies and recommended that she continue this and have close follow-up with the primary care provider. I did suggest possibly starting a steroid, however the patient states she has not tolerated these well in the past. Patient was complaining of some urinary burning/irritation. Urinalysis was suggestive of contamination versus infection. As the patient has an extensive list of allergies, I do feel it is best to culture this and treat based on that. The patient was advised to have a follow-up appointment with her primary care provider in 2-3 days for a recheck. She will return here if she develops any new or worsening symptoms in the meantime. The patient's case was reviewed with Dr. Wu, ED attending physician, who agreed with my assessment and treatment plan. Based on the patient's presentation and work up, I feel the patient is stable for outpatient treatment. The patient was educated to return to the emergency department for any worsening of their current condition or new/concerning symptoms. She will follow up with her PCP. Medication Reconcilliation Current Medication List: was personally reviewed by me Blood Pressure Screening Patient's blood pressure: Normal blood pressure Impression Primary Impression: Pneumonia Departure Information Dispostion Home / Self-Care Condition GOOD Prescriptions Doxycycline Hyclate (VIBRAMYCIN) 100 Mg Cap 100 MG PO BID for 3 Days, #6 CAP Prov: Marivel Walsh .PHILLIP 02/14/17 Referrals Karla Yuen D.O. (PCP) Patient Instructions My [facility] Additional Instructions Continue the doxycycline as prescribed. You have been given an additional 3 days to complete a 10 day course. Continue to use the nebulizers at home for any cough/shortness of breath. You may use [id number] cough suppressants to help with your symptoms. Follow-up with your primary care provider within 2-3 days for a recheck. Return to the emergency department with shortness of breath, coughing up blood, fevers or any other new/concerning worsening symptoms. Problem Qualifiers Primary Impression: Pneumonia Pneumonia type: due to unspecified organism Laterality: right Lung location : middle lobe of lung Qualified Codes: J18.1 - Lobar pneumonia, unspecified organism
[2017-02-14 15:56] LABS: BASO % 0.5 %; BASO ABS # 0.03 K/uL (0-0.2); COMPLETE YES; HEMATOCRIT 38.1 % (37-47); IG% 0.3 %; LYMPH % 35.4 %; LYMPH ABS # 2.31 K/uL (1.2-3.4); MEAN CELL VOLUME 94.8 fL (80-100); MEAN CORPUSCULAR HEMOGLOBIN 31.6 pg (25-34); MEAN CORPUSCULAR HGB CONC 33.3 g/dl (32-36); MEAN PLATELET VOLUME 8.9 fL (7.4-10.4); MONO % 8.7 %; NEUT % 55.1 %; PLATELET COUNT 223 K/uL (130-400); RED BLOOD COUNT 4.02 M/uL (4.2-5.4); WHITE BLOOD COUNT 6.53 K/uL (4.8-10.8)
[2017-02-14] MEDS ORDERED: DOXY100C PO (16:16)
[2017-02-14 16:25] VITALS: BP 108/88; PULSE 77; O2SAT 96
== END 2017-02-14 16:27 | disposition home or self-care (01) ==
LOC: C.EDB 13:23 → C.EDC 16:27
DX: J18.9 Pneumonia, unspecified organism (principal); R91.8 Other nonspecific abnormal finding of lung field; R30.0 Dysuria; F17.200 Nicotine dependence, unspecified, uncomplicated; J45.909 Unspecified asthma, uncomplicated; E03.9 Hypothyroidism, unspecified; Z83.3 Family history of diabetes mellitus; Z82.49 Family history of ischemic heart disease and other diseases of the circulatory system; Z84.1 Family history of disorders of kidney and ureter; Z83.79 Family history of other diseases of the digestive system

== ENCOUNTER 2017-02-21 17:15 | Emergency (ER) | payer BC ==
[~2017-02-21] VITALS: Ht 162.6 cm; Wt 105.0 kg
[~2017-02-21 17:15] MED LIST changes: +DOXY-300 PO
[2017-02-21 17:16] VITALS: TEMP 36.4; Ht 162.6 cm; Wt 105.0 kg
[2017-02-21 18:31] LABS: BASO % 0.2 %; BASO ABS # 0.02 K/uL (0-0.2); COMPLETE YES; HEMATOCRIT 38.3 % (37-47); IG% 0.5 %; LYMPH % 28.4 %; LYMPH ABS # 2.31 K/uL (1.2-3.4); MEAN CELL VOLUME 92.7 fL (80-100); MEAN CORPUSCULAR HEMOGLOBIN 32.2 pg (25-34); MEAN CORPUSCULAR HGB CONC 34.7 g/dl (32-36); MEAN PLATELET VOLUME 8.9 fL (7.4-10.4); MONO % 10.6 %; NEUT % 60.3 %; PLATELET COUNT 281 K/uL (130-400); RED BLOOD COUNT 4.13 M/uL (4.2-5.4); WHITE BLOOD COUNT 8.14 K/uL (4.8-10.8)
[2017-02-21 18:50] LABS: ALT/SGPT 20 U/L (12-78); BLOOD UREA NITROGEN 8 mg/dl (7-18); C-REACTIVE PROTEIN 3.13 mg/dl (0-0.29); CALCIUM 8.6 mg/dl (8.5-10.1); CARBON DIOXIDE 28 mmol/L (21-32); CHLORIDE 104 mmol/L (98-107); CREATININE 0.98 mg/dl (0.60-1.20); GLUCOSE 80 mg/dl (70-99); POTASSIUM 3.3 mmol/L (3.5-5.1); SODIUM 137 mmol/L (136-145)
[2017-02-21 18:56] LABS: ANTI-STREP O SCR: 5YRS OR > POS IU/ml (<200 IU)
[2017-02-21 19:01] LABS: ANTI-STREP O TITRE: 5YR OR > 400 IU/ml (<200 IU)
[2017-02-21 19:20] LABS: ALKALINE PHOSPHATASE 109 U/L (45-117); AST/SGOT 16 U/L (15-37); URIC ACID 5.3 mg/dl (2.6-7.2)
[2017-02-21 19:28] LABS: LYME DISEASE AB IGG NEG (NEG); LYME DISEASE AB IGM NEG (NEG)
[2017-02-21] MEDS ORDERED: POTASSIUM CHLORIDE 10 MEQ TABCR PO STA (19:28)
[2017-02-21] MEDS ORDERED: LEVOTHYROXINE 200 MCG TAB PO STA (19:28)
--- NOTE | 2017-02-21 20:22 | DIAGNOSTIC IMAGING REPORT ---
LEFT ANKLE 3 VIEWS HISTORY: left ankle pain, lateral. no trauma COMPARISON: None. FINDINGS: There is no fracture or dislocation. Lateral soft tissue swelling. Posterior and plantar calcaneal spurs. No radiopaque foreign bodies. IMPRESSION: No fractures. Electronically signed by: Edwin Fisher M.D. 02/21/2017 8:21 PM Dictated Date/Time: 02/21/2017 8:20 PM
[2017-02-21 20:31] VITALS: BP 137/78; PULSE 68; O2SAT 98
[2017-02-21] MEDS ORDERED: PRED50TA PO (20:40)
--- NOTE | 2017-02-21 22:21 | EMERGENCY ROOM VISIT NOTE ---
History Report prepared by Surendra: Giovanni Flower Under the Supervision of: Dr. Pawel Hathaway M.D. 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 The patient reports working on her feet for 12 hours at a time for her job. She notes that her left ankle regularly swells, though it has never turned red before. She currently rates the pain a 7/10 in severity. She notes that the ankle swelling is relieved and goes away with rest, though worsens with walking and the pain persists regardless of rest. She took Tylenol for the pain, though no relief in pain. She denies any recent injuries or surgeries to her left ankle. She also notes neck pain and right-sided chest tightness. She was recently diagnosed with right -sided pneumonia and has been recovering all week. She completed her treatment of Doxycycline three days ago. She has a history of hypothyroidism. The patient is currently taking Levothyroxine and Albuterol. Pt denies LOC, headache, fevers , chills, diaphoresis, visual changes, knee pain, hip pain, leg pain, leg swelling, joint pain, breathing difficulties, nausea, vomiting, abdominal pain, back pain, melena, hematochezia, urinary symptoms, numbness, weakness, lymphadenopathy, rash, or other complaints. 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 Review of Systems See HPI for pertinent positives and negatives. A total of ten systems were reviewed and were otherwise negative. 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 (17) Tobacco Use Disorder (18) Upper respiratory infection (19) Work related injury Surgical Problems: (1) H/O bilateral salpingectomy (2) H/O lumbar discectomy (3) H/O tubal ligation (4) H/O: hysterectomy (5) History of hysterectomy (6) History of spinal fusion (7) Status post tonsillectomy and adenoidectomy (8) Tubal Ligation Status Family History FH: cancer FH: diabetes mellitus FH: gallbladder disease FH: hypertension FH: kidney disease FH: seizures Social History Smoking Status: Current Every Day Smoker Smokeless Tobacco Use: No Alcohol Use: none Drug Use: none Marital Status: single Housing Status: lives with family Occupation Status: employed Current/Historical Medications Scheduled Levothyroxine Sodium (Levothyroxine Sodium), 200 MCG PO QAM Prednisone (Prednisone), 50 MG PO DAILY Scheduled PRN Albuterol Hfa (Ventolin Hfa), 2 PUFF INH Q4 PRN for Shortness of Breath Albuterol Sulf (Proventil 0.083% 2.5MG/3ML), 2.5 MG INH Q4 PRN for SOB/Wheezing Diphenhydramine Hcl (Benadryl Allergy), 25 MG PO BID PRN for ALLERGIC REACTION Epinephrine (Epipen), 0.3 MG IM UD PRN for ALLERGIC REACTION Loratadine (Claritin), 10 MG PO DAILY PRN for ALLERGIC REACTION Allergies Coded Allergies: Amoxicillin (Unverified Allergy, Severe, hives, 02/21/17) BEE STING (Verified Allergy, Severe, THROAT SWELLS,MOUTH, 02/21/17) Cat Dander (Verified Allergy, Severe, EYES AND THROAT SWELLS, 02/21/17) Dog Dander (Verified Allergy, Severe, EYES AND THROAT SWELLS, 02/21/17) Molds & Smuts (Verified Allergy, Severe, EYES AND THROAT SWELLS, 02/21/17 ) Moxifloxacin (Verified Allergy, Severe, THROAT SWELLING, 02/21/17) Sulfamethoxazole w/Trimethoprim (Verified Allergy, Severe, THROAT SWELLS, 02/21/17) Penicillins (Verified Allergy, Intermediate, HIVES, 02/21/17) Dust Mite Extract (Verified Allergy, Unknown, STUFFY NOSE, 02/21/17) Physical Exam Vital Signs Date Time Temp Pulse Resp B/P (MAP) Pulse Ox O2 Delivery O2 Flow Rate FiO2 02/21/17 20:31 68 16 137/78 98 Room Air 02/21/17 19:10 72 16 140/92 98 Room Air 02/21/17 17:16 36.4 84 16 136/89 98 Room Air Physical Exam GENERAL: Awake, alert, well-appearing, in no distress HENT: Normocephalic, atraumatic. Oropharynx unremarkable. EYES: Normal conjunctiva. Sclera non-icteric. NECK: Supple. No nuchal rigidity. FROM. No JVD. RESPIRATORY: Clear to auscultation. CARDIAC: Regular rate, normal rhythm. Extremities warm and well perfused. Pulses equal. ABDOMEN: Soft, non-distended. No tenderness to palpation. No rebound or guarding. No masses. RECTAL: Deferred. MUSCULOSKELETAL: Chest examination reveals no tenderness. The back is symmetrical on inspection without obvious abnormality. There is no CVA tenderness to palpation. Trace left lateral ankle edema and minimal redness over the lateral malleolus, and minimal tenderness. Remainder of left leg is normal. Right leg has no edema. LOWER EXTREMITIES: Calves are equal size bilaterally and non-tender. No edema. No discoloration. NEURO: Normal sensorium. No sensory or motor deficits noted. SKIN: No rash or jaundice noted. Medical Decision & Procedures ER Provider Diagnostic Interpretation: Radiology results as stated below per my review and radiologist interpretation: LEFT ANKLE 3 VIEWS HISTORY: left ankle pain, lateral. no trauma COMPARISON: None. FINDINGS: There is no fracture or dislocation. Lateral soft tissue swelling. Posterior and plantar calcaneal spurs. No radiopaque foreign bodies. IMPRESSION: No fractures. Electronically signed by: Edwin Fisher M.D. 02/21/2017 8:21 PM Dictated Date/Time: 02/21/2017 8:20 PM Laboratory Results 02/21/17 18:16 Red Blood Count 4.13, Mean Corpuscular Volume 92.7, Mean Corpuscular Hemoglobin 32.2, Mean Corpuscular Hemoglobin Concent 34.7, Mean Platelet Volume 8.9, Neutrophils (%) (Auto) 60.3, Lymphocytes (%) (Auto) 28.4, Monocytes (%) (Auto) 10.6, Eosinophils (%) (Auto) 0.0, Basophils (%) (Auto) 0.2, Neutrophils # (Auto ) 4.91, Lymphocytes # (Auto) 2.31, Monocytes # (Auto) 0.86, Eosinophils # (Auto ) 0.00, Basophils # (Auto) 0.02 02/21/17 18:16 Test 02/21/17 18:16 White Blood Count 8.14 K/uL (4.8-10.8) Red Blood Count 4.13 M/uL (4.2-5.4) Hemoglobin 13.3 g/dL (12.0-16.0) Hematocrit 38.3 % (37-47) Mean Corpuscular Volume 92.7 fL (80-100) Mean Corpuscular Hemoglobin 32.2 pg (25-34) Mean Corpuscular Hemoglobin Concent 34.7 g/dl (32-36) Platelet Count 281 K/uL (130-400) Mean Platelet Volume 8.9 fL (7.4-10.4) Neutrophils (%) (Auto) 60.3 % Lymphocytes (%) (Auto) 28.4 % Monocytes (%) (Auto) 10.6 % Eosinophils (%) (Auto) 0.0 % Basophils (%) (Auto) 0.2 % Neutrophils # (Auto) 4.91 K/uL (1.4-6.5) Lymphocytes # (Auto) 2.31 K/uL (1.2-3.4) Monocytes # (Auto) 0.86 K/uL (0.11-0.59) Eosinophils # (Auto) 0.00 K/uL (0-0.5) Basophils # (Auto) 0.02 K/uL (0-0.2) RDW Standard Deviation 44.0 fL (36.4-46.3) RDW Coefficient of Variation 13.0 % (11.5-14.5) Immature Granulocyte % (Auto) 0.5 % Immature Granulocyte # (Auto) 0.04 K/uL (0.00-0.02) Erythrocyte Sedimentation Rate 63 mm/hr (0-21) Anion Gap 5.0 mmol/L (3-11) Est Creatinine Clear Calc Drug Dose 96.5 ml/min Estimated GFR () 87.8 Estimated GFR (Non- 75.8 BUN/Creatinine Ratio 8.0 (10-20) Uric Acid 5.3 mg/dl (2.6-7.2) Calcium Level 8.6 mg/dl (8.5-10.1) Total Bilirubin 0.3 mg/dl (0.2-1) Direct Bilirubin < 0.1 mg/dl (0-0.2) Aspartate Amino Transf (AST/SGOT) 16 U/L (15-37) Alanine Aminotransferase (ALT/SGPT) 20 U/L (12-78) Alkaline Phosphatase 109 U/L (45-117) C-Reactive Protein 3.13 mg/dl (0-0.29) Total Protein 7.6 gm/dl (6.4-8.2) Albumin 3.3 gm/dl (3.4-5.0) Thyroid Stimulating Hormone (TSH) 134.000 uIu/ml (0.300-4.500) Lyme Disease IgG Antibody NEG (NEG) Lyme Disease IgM Antibody NEG (NEG) Anti-Streptolysin O Antibody Screen POS IU/ml (<200 IU) Anti-Streptolysin O Antibody Titer 400 IU/ml (<200 IU) Laboratory results reviewed by me Medications Administered Medications (Trade) Dose Ordered Sig/Cortez Route Start Time Stop Time Status Last Admin Dose Admin Levothyroxine Sodium (Synthroid Tab) 200 mcg NOW STAT PO 02/21/17 19:28 02/21/17 19:30 DC 02/21/17 19:50 200 MCG Potassium Chloride (Klor-Con M10) 20 meq NOW STAT PO 02/21/17 19:28 02/21/17 19:30 DC 02/21/17 19:36 20 MEQ Prednisone (PredniSONE TAB) 60 mg NOW STAT PO 02/21/17 19:28 02/21/17 19:30 DC 02/21/17 19:36 60 MG ED Course 172: The patient was evaluated in room B9. A complete history and physical exam was performed. 1924: I reassessed the patient at this time. She is feeling better and resting comfortably. 1927: Ordered Prednisone 60 mg PO, Potassium Chloride 20 meq PO, and Synthroid 200 mg PO 2039: I reassessed the patient at this time. She is feeling better and resting comfortably. I discussed the results and treatment plan with the patient. I answered all pertaining questions that she had. She expressed understanding and verbalized agreement. The patient will be discharged home. Medical Decision Prior records reviewed and summarized above. Triage Nursing notes reviewed and agree them. The patient's history was concerning for nontraumatic left ankle pain. Differential diagnosis: Etiologies such as gouty arthritis, septic arthritis, reactive arthritis, fracture, dislocation, neurovascular compromise, compartment syndrome, soft tissue injury, DVT, as well as others were entertained. Physical examination: Consistent with isolated lateral left ankle swelling and pain. ER treatment provided: Oral prednisone Oral potassium Oral Synthroid Diagnostics interpreted by me: Labs revealed an elevated CRP and ESR. ASO titer also elevated. Chemistry panel revealed slightly low potassium. She was also found to be significantly hypothyroid and admits that she has not been taking her levothyroxine recently due to the change in her job and financial situation. She does have the prescription at home. Imaging studies: Xrays as above. The patient recently had pneumonia. She now has pain and swelling in the lateral aspect of her left ankle that was nontraumatic. This seems to be consistent with a reactive arthritis. There is no clinical sign of DVT. No sign of infection. There is no skin breakdown. I discussed conservative management. She states that she has Percocet at home from her prior back surgery. She will use this for severe pain otherwise she will use over-the- counter analgesia. She will try a short course of prednisone. Close follow-up will be necessary with her primary clinic. The patient does note having some chest tightness but this is getting much better after treatment for her pneumonia. Her pneumonia was on the right side. Clinically she is doing well and has an unremarkable pulmonary examination. By the evaluation outlined above emergent etiologies such as fracture, dislocation, neurovascular compromise, compartment syndrome, infections, as well as others were deemed relatively unlikely. The patient was informed about the findings as listed above. All questions were answered and she was pleased with the treatment. Return instructions were outlined and the patient was discharged in stable condition. Prescription management: Prednisone Referral: The patient was referred to their primary care physician in 3 days for a recheck of your current condition. [place] Drug Monitoring Program Search Results: no issues identified Medication Reconcilliation Current Medication List: was personally reviewed by me Blood Pressure Screening Patient's blood pressure: Elevated blood pressure Blood pressure disposition: Referred to PCP Impression Primary Impression: Reactive arthritis Additional Impressions: Hypothyroidism Hypokalemia Scribe Attestation The scribe's documentation has been prepared under my direction and personally reviewed by me in its entirety. I confirm that the note above accurately reflects all work, treatment, procedures, and medical decision making performed by me. Departure Information Dispostion Home / Self-Care Prescriptions Prednisone (Prednisone) 50 Mg Tab 50 MG PO DAILY for 3 Days, #3 TAB Prov: Pawel Hathaway MD 02/21/17 Referrals No Doctor, Assigned (PCP) Forms HOME CARE DOCUMENTATION FORM, IMPORTANT VISIT INFORMATION, WORK / SCHOOL INSTRUCTIONS Patient Instructions My [facility] Additional Instructions Prednisone 50 mg: Once daily until the prescription is finished. Use your Percocet as previously prescribed. Take your other medications as prescribed. Especially your Synthroid. Ibuprofen(Motrin, Advil) may be used for fever or pain. Use 600mg every six hours as needed. Take with food. Avoid using more than 2400mg in a 24 hour period. Do not use 2400mg per day for more than three consecutive days without physician direction. Prolonged inappropriate use can lead to stomach upset or ulcers. Rest. Elevate the ankle. Activity as tolerated. Return to the ER immediately for spreading redness, fevers, pus-like drainage, severe pain, or as needed. Follow-up with your primary physician this coming week. Problem Qualifiers
== END 2017-02-21 20:53 | disposition home or self-care (01) ==
LOC: C.EDB 17:15
DX: M02.372 Reiter's disease, left ankle and foot (principal); E03.9 Hypothyroidism, unspecified; E87.6 Hypokalemia; R79.82 Elevated C-reactive protein (CRP); R70.0 Elevated erythrocyte sedimentation rate; R03.0 Elevated blood-pressure reading, without diagnosis of hypertension; J45.909 Unspecified asthma, uncomplicated; F17.200 Nicotine dependence, unspecified, uncomplicated; Z83.3 Family history of diabetes mellitus; Z82.49 Family history of ischemic heart disease and other diseases of the circulatory system; Z84.1 Family history of disorders of kidney and ureter; Z82.0 Family history of epilepsy and other diseases of the nervous system; Z83.79 Family history of other diseases of the digestive system

== ENCOUNTER 2017-09-28 18:18 | Emergency (ER) | payer BC ==
[~2017-09-28] VITALS: Ht 162.6 cm; Wt 105.3 kg
[~2017-09-28 18:18] MED LIST changes: -ALBINS/ INH; -CYCL10TA6 PO; -DOXY-300 PO; -LORA10TA6 PO; -OXYC-57 PO
[2017-09-28 18:41] VITALS: TEMP 36.7; Ht 162.6 cm; Wt 105.3 kg
[2017-09-28] MEDS ORDERED: ACET-1256 PO (18:56)
[2017-09-28] MEDS ORDERED: CYCLOBENZAPRINE HCL 10 MG TAB PO STA (19:42)
[2017-09-28] MEDS ORDERED: KETOROLAC TROMETHAMINE 60 MG/2 ML VIAL IM STA (19:42)
--- NOTE | 2017-09-28 19:46 | EMERGENCY ROOM VISIT NOTE ---
ED Visit Note First contact with patient: 19:32 CHIEF COMPLAINT: Low back pain HISTORY OF PRESENT ILLNESS: This 32-year-old female patient presents to the emergency department by private vehicle complaining of worsening of her chronic low back pain for the past month. The pain was gradual in onset, progressively worsening and is now constant and worse with movement. The patient notes the pain as aching and burning and 8/10. She states that the pain radiates down her left leg to her ankle, this is worse with walking or prolonged time on her feet. The patient has taken Tylenol and Aleve with minimal relief of the pain. The patient denies any loss of control of their bowel or bladder functions. There has been no leg numbness or weakness, and no change in sensation. No nausea or vomiting or abdominal pain. No chest pain or shortness of breath. The patient has had 2 prior back surgeries, first a decompression of L4-S1, and the second 1 to put rods and pins in her back. Her surgeries were performed by Dr. Maguire. No dysuria or increased urinary frequency. No saddle paresthesias. No fevers or chills. REVIEW OF SYSTEMS: A review of systems was performed with positives and pertinent negatives listed in the history of present illness. All other systems were reviewed and are negative. ALLERGIES: Reviewed in chart, see below. MEDICATIONS: Reviewed in chart, see below. PMH: Reviewed in chart, see problem list below. SOCIAL HISTORY: Lives at home. She is a current everyday smoker. PHYSICAL EXAM: VITALS: Vitals are noted on the nurse's note and reviewed by myself. Vital signs stable. GENERAL: Pleasant and cooperative, in no acute distress, non-diaphoretic, well- developed well-nourished. SKIN: The skin was without rashes, erythema, edema, or bruising. Capillary refill less than 2 seconds. NECK: Supple without nuchal rigidity. No cervical spine tenderness. No paraspinous muscle tenderness. HEART: Regular rate and rhythm without murmurs gallops or rubs. LUNGS: Clear to auscultation bilaterally without wheezes, rales or rhonchi. ABDOMEN: Positive bowel sounds x 4. Normal tympanic percussion. Soft, nontender, without masses or organomegaly. Gordon sign negative. MUSCULOSKELETAL: No muscle atrophy, erythema, or edema noted of the back. There is mild tenderness over the lumbar spinous processes. There is left- sided tenderness over the paraspinous muscles of the lumbar region. There is no tenderness over the thoracic spine or paraspinous muscles. There are left- sided lumbar muscle spasms present. The patient is slow to move around with maximum tenderness with sitting up from lying down. Negative straight leg raise test. NEURO: Patient was alert and oriented to person place and time. Normal sensation to light and sharp touch. Deep tendon reflexes 2+ in the lower extremities. Dorsalis pedis pulse 2+ bilaterally. Strength 5/5 and equal in the bilateral lower extremities. IMAGING: LUMBAR SPINE 5 VIEWS HISTORY: Low back pain, radiating left leg, eval surgical hardware COMPARISON: Lumbar spine 01/28/2012. FINDINGS: There is no fracture. No subluxation. L5-S1 laminectomy with posterior fusion from L4 through S1 with pedicle screws and rods. The hardware appears intact. Remaining disc spaces are preserved. There is a disc spacer at L5-S1 which is in good position. IMPRESSION: 1. No fractures or subluxation within the lumbar spine. 2. Posterior fusion at L4 S1. The hardware appears intact. EMERGENCY DEPARTMENT COURSE: I examined the patient. No history or exam findings concerning for cauda equina syndrome at this time. Patient was given IM Toradol and p.o. Flexeril for her pain. Lumbar spine x-ray was performed to evaluate surgical hardware, this appears to be intact, no other acute abnormalities. Patient did feel improved with medication. Rx for Mobic and Flexeril were sent to the pharmacy, patient was educated regarding these medications. She was also educated regarding continued care of her back at home , follow-up with her PCP, recommendation for physical therapy, and return precautions should her symptoms worsen, she verbalized understanding. Patient was discharged home in stable condition and ambulatory. Problem List Medical Problems: (1) Asthma Status: Chronic (2) Carpal tunnel syndrome Status: Resolved (3) Contusion of foot Status: Resolved (4) Contusion of foot Status: Resolved (5) Contusion of left index finger without damage to nail Status: Resolved (6) Contusion of left index finger without damage to nail Status: Resolved (7) Herniated lumbar intervertebral disc Status: Resolved (8) Hypothyroidism Status: Chronic (9) Hypothyroidism Status: Chronic (10) Low back pain Status: Resolved (11) Lumbago Status: Resolved (12) Menorrhagia Status: Resolved (13) Pneumonia, Organism Nos Status: Resolved (14) Tobacco Use Disorder Status: Chronic (15) Upper respiratory infection Status: Resolved (16) Work related injury Status: Resolved Surgical Problems: (1) H/O bilateral salpingectomy Status: Resolved (2) H/O lumbar discectomy Status: Resolved (3) H/O tubal ligation Status: Resolved (4) H/O: hysterectomy Status: Resolved (5) History of hysterectomy Status: Resolved (6) History of spinal fusion Status: Resolved (7) Status post tonsillectomy and adenoidectomy Status: Resolved Current/Historical Medications Scheduled Cyclobenzaprine Hcl (Flexeril), 10 MG PO TID Levothyroxine Sodium (Levothyroxine Sodium), 200 MCG PO QAM Meloxicam (Mobic), 15 MG PO DAILY Scheduled PRN Acetaminophen (Tylenol), 1,000 MG PO Q6 PRN for Pain Albuterol Hfa (Ventolin Hfa), 2 PUFF INH Q4 PRN for Shortness of Breath Albuterol Sulf (Proventil 0.083% 2.5MG/3ML), 2.5 MG INH Q4 PRN for SOB/Wheezing Diphenhydramine Hcl (Benadryl Allergy), 25 MG PO BID PRN for ALLERGIC REACTION Epinephrine (Epipen), 0.3 MG IM UD PRN for ALLERGIC REACTION Loratadine (Claritin), 10 MG PO DAILY PRN for ALLERGIC REACTION Allergies Coded Allergies: Amoxicillin (Unverified Allergy, Severe, hives, 02/21/17) BEE STING (Verified Allergy, Severe, THROAT SWELLS,MOUTH, 02/21/17) Cat Dander (Verified Allergy, Severe, EYES AND THROAT SWELLS, 02/21/17) Dog Dander (Verified Allergy, Severe, EYES AND THROAT SWELLS, 02/21/17) Molds & Smuts (Verified Allergy, Severe, EYES AND THROAT SWELLS, 02/21/17 ) Moxifloxacin (Verified Allergy, Severe, THROAT SWELLING, 02/21/17) Sulfamethoxazole w/Trimethoprim (Verified Allergy, Severe, THROAT SWELLS, 02/21/17) Penicillins (Verified Allergy, Intermediate, HIVES, 02/21/17) Dust Mite Extract (Verified Allergy, Unknown, STUFFY NOSE, 02/21/17) Vital Signs Date Time Temp Pulse Resp B/P (MAP) Pulse Ox O2 Delivery O2 Flow Rate FiO2 09/28/17 21:35 76 16 139/99 98 09/28/17 18:41 36.7 77 16 144/96 93 Room Air Medications Administered Medications (Trade) Dose Ordered Sig/Cortez Route Start Time Stop Time Status Last Admin Dose Admin Ketorolac Tromethamine (Toradol Inj) 60 mg NOW STAT IM 09/28/17 19:42 09/28/17 19:45 DC 09/28/17 19:55 60 MG Cyclobenzaprine HCl (Flexeril Tab) 10 mg NOW STAT PO 09/28/17 19:42 09/28/17 19:45 DC 09/28/17 19:55 10 MG Departure Information Impression Primary Impression: Acute exacerbation of chronic low back pain Additional Impression: Left sided sciatica Dispostion Home / Self-Care Condition GOOD Prescriptions Meloxicam (MOBIC) 15 Mg Tab 15 MG PO DAILY for 14 Days, #14 TAB Prov: Lelo Denton, ROUTE DELIVERY CLERK 09/28/17 Cyclobenzaprine Hcl (FLEXERIL) 10 Mg Tab 10 MG PO TID for mus, #12 TAB Prov: Lelo Denton, ROUTE DELIVERY CLERK 09/28/17 Referrals Karla Yuen D.OTrudy (PCP) Patient Instructions ED Back Care Tips, ED Exercises Lumbar Muscles, ED Sciatica, [facility] Additional Instructions You have been evaluated and treated in the emergency department today for your low back pain. X-ray of your lumbar spine does not show any acute fractures or other problems, and her surgical hardware appears to be normal. Take it easy for the next few days, no strenuous activity, heavy lifting, or bending/twisting motions, to allow your back to rest. Alternate heat and ice for comfort. After heat, you may do gentle stretching and massage to the low back. You have been prescribed Mobic 15 mg tablets to be taken once a day for the next two weeks to treat your pain and inflammation in your back. Do not take other NSAIDs while you are taking this medication. You have been prescribed Flexeril 10 mg tablets to be taken every 8 hours as needed for muscle tightness and spasms. This medication may make you drowsy. Do not drive, operate machinery, or drink alcohol while taking. Follow up with your PCP in the next few days for further management. You may benefit from physical therapy. Please return to the ER if any problems with bowel or bladder function, numbness in your groin, high fevers, severe abdominal pain or worsening back pain, or if loss of feeling/movement of legs. Work Instructions Return To Work: 2 days Problem Qualifiers
--- NOTE | 2017-09-28 20:32 | DIAGNOSTIC IMAGING REPORT ---
LUMBAR SPINE 5 VIEWS HISTORY: Low back pain, radiating left leg, eval surgical hardware COMPARISON: Lumbar spine 01/28/2012. FINDINGS: There is no fracture. No subluxation. L5-S1 laminectomy with posterior fusion from L4 through S1 with pedicle screws and rods. The hardware appears intact. Remaining disc spaces are preserved. There is a disc spacer at L5-S1 which is in good position. IMPRESSION: 1. No fractures or subluxation within the lumbar spine. 2. Posterior fusion at L4 S1. The hardware appears intact. Electronically signed by: Edwin Fisher M.D. 09/28/2017 8:31 PM Dictated Date/Time: 09/28/2017 8:28 PM
[2017-09-28] MEDS ORDERED: MELO-84 PO (21:13)
[2017-09-28] MEDS ORDERED: CYCL10TA6 PO (21:13)
[2017-09-28] MEDS ORDERED: ALBINS/ INH (21:16)
[2017-09-28] MEDS ORDERED: LORA10TA6 PO (21:17)
[2017-09-28 21:35] VITALS: BP 139/99; PULSE 76; O2SAT 98
== END 2017-09-28 21:35 | disposition home or self-care (01) ==
LOC: C.EDB 18:18 → C.EDD 21:35
DX: M54.42 Lumbago with sciatica, left side (principal); F17.210 Nicotine dependence, cigarettes, uncomplicated; J45.909 Unspecified asthma, uncomplicated; E03.9 Hypothyroidism, unspecified; Z87.01 Personal history of pneumonia (recurrent); Z90.710 Acquired absence of both cervix and uterus; Z90.79 Acquired absence of other genital organ(s); Z98.1 Arthrodesis status; Z79.899 Other long term (current) drug therapy; Z88.0 Allergy status to penicillin; Z88.2 Allergy status to sulfonamides; Z91.048 Other nonmedicinal substance allergy status; Z88.1 Allergy status to other antibiotic agents

== ENCOUNTER 2023-09-27 09:06 | Inpatient (IN) ==
--- OUTSIDE RECORDS SUMMARY | 2023-09-27 09:12 | External Medical Summary | Summary of Care ---
Author Name Unknown Organization [facility] Address [address] [facility] [place] [address] Phone [phone] Care Team Providers Care Line Appliance Assembler Name Role Phone Daniele Howard Primary Care Provider [phone] Encounter Details Date Type Department Care Team (Late st Contact Info) Description 09/15/2023 Patient Reported Data Patient Survey Ortho [facility] Allergies Active Allergy Reactions Criticality Noted Date Comments Amoxicillin 02/05/2001 Hives Moxifloxacin Hcl In Nacl Edema airway High 11/18/2010 [place] like her throat was closing off Bactrim Other (Please comment) 06/02/2012 Sore tongue, Ulcers in mouth, pain left arm, welt on foot Bee Venom Hives 10/15/2017 Cat Dander Edema airway,Edema Other High 02/04/2013 Eye edema Dog Dander Other (Please comment) 09/25/2011 [place] symptoms Dust Other (Please comment) 09/25/2011 Uri symptoms Molds & Smuts Other (Please comment) 09/25/2011 Uri symptoms documented as of this encounter (statuses as of 09/15/2023) Medications Medication Sig Dispensed Refills Start Date End Date Status NEBULIZER COMPRESSOR MISCIndications:Acute sinusitis Use as directed 1 Each 1 10/10/2012 Active loratadine (CLARITIN) 10 MG TabletIndications:All ergic rhinitis, unspecified allergic rhinitis trigger, unspecified rhinitis seasonality Take 1 Tab by mouth daily. 30 Tab 5 05/25/2016 Active EpiPen 2-Robert 0.3 MG/0.3ML Injection Solution Auto-injectorIndicati ons:Allergy to bee sting For a severe reaction: Place orange end against the outer thigh, press firmly, hold in place for 10 seconds and go to the Emergency room. 2 Each 04/08/2020 Active Additional Information Patient not taking.Reported on 09/15/2023 Fluticasone-Salmetero l 100-50 MCG/DOSE Inhalation Aerosol Powder Breath Activated (Advair Diskus)Indications:CO PD, group B, by GOLD 2017 classification ([facility]) Inhale 1 Puff by mouth 2 times a day. 60 Each 3 09/14/2020 Active Albuterol Sulfate (2.5 MG/3ML) 0.083% Inhalation Nebulization Solution (Proventil)Indication s:COPD, group B, by GOLD 2017 classification ([facility]) Inhale 1 Vial via nebulizer every 4 hours as needed for Wheezing. 60 mL 1 09/14/2020 Active Mtdwkusf-Apgbqfpem-SZ 3.5-11830-3 Otic Solution Administer into the left ear 4 Drops in the morning AND 4 Drops at noon AND 4 Drops before bedtime. to affected ear, for 10 days.. 10 mL 5 11/07/2021 Active Terbinafine HCl 1 % External Cream (LamISIL AT ATHLETE'S FOOT)Indications:Samara a pedis of both feet Apply topically to affected area 2 times a day. Apply to both feet for 8 weeks 30 g 1 07/29/2022 Active Albuterol Sulfate HFA 108 (90 Base) MCG/ACT Inhalation Aerosol SolutionIndications:W heezing inhale 2 puffs by mouth and INTO THE LUNGS every 4 hours if needed for SHORTNESS OF BREATH 18 g 1 01/15/2023 Active Cyclobenzaprine HCl 10 MG Oral Tablet (Flexeril)Indications :Fibromyalgia Take 1 Tablet by mouth 3 times a day as needed for Muscle spasms. 90 Tablet 03/13/2023 Active Restasis 0.05 % Ophthalmic Emulsion INSTILL 1 DROP INTO EACH EYE TWICE DAILY 03/12/2023 Active Lidocaine Viscous HCl 2 % Mouth/Throat SolutionIndications:T ooth pain Apply small amount to tender tooth and gums every 4hrs as needed for pain. 100 mL 1 05/05/2023 Active hydroCHLOROthiazide 25 MG Oral Tablet (Hydrodiuril)Indicati ons:HTN, goal below 130/80 Take 1 Tablet by mouth in the morning. 90 Tablet 07/06/2023 Active Losartan Potassium 50 MG Oral Tablet (Cozaar)Indications:H TN, goal below 130/80 Take 1 Tablet by mouth in the morning. 90 Tablet 3 07/06/2023 Active Ketoconazole 2 % External Cream Apply topically to both feet twice daily 30 g 2 07/15/2023 Active Levothyroxine Sodium 200 MCG Oral Tablet (Levoxyl) Take 1 tablet by mouth daily (at least 30 min prior to breakfast or other meds) 90 Tablet 1 08/26/2023 Active documented as of this encounter (statuses as of 09/15/2023) Active Problems Problem Noted Date Diagnosed Date Graves' disease without crisis 08/26/2023 Acute midline low back pain with bilateral sciat ica 03/13/2023 Body mass index (BMI) of 45.0 to 49.9 in adult 0 05/12/2022 Overview: Per Obesity protocol - Per Obesity protocol - Per Obesity protocol - Atrioventricular block, first degree 11/06/2020 COPD, group B, by GOLD 2017 classification 12/11 Overview: Per COPD GOLD Classification HTN, goal below 130/80 02/08/2019 Chronic bilateral low back pain 06/22/2018 S/P lumbar microdiscectomy 08/10/2014 Overview: L4-L5, L5-S1 Dr Vieira 04/2014 GERD (gastroesophageal reflux disease) 4 Tobacco use disorder 09/10/2011 Hypothyroidism 08/19/2011 Overview: Hx graves disease, radiation as a child documented as of this encounter (statuses as of 09/15/2023) Resolved Problems Problem Noted Date Diagnosed Date Resolved Date Body mass index (BMI) of 40. 0 to 44.9 in adult 06/11/2020 05/14/2022 Overview: Per Obesity protocol - Per Obesity protocol - Body mass index (BMI) of 45. 0 to 49.9 in adult 03/14/2019 06/14/2020 Overview: Per Obesity protocol - Body mass index (BMI) of 40. 0 to 44.9 in adult 12/07/2017 03/17/2019 Overview: Per Obesity protocol #1 Status post laparoscopic ass isted vaginal hysterectomy 08/10/2014 04/07/2020 Overview: Robotic - Dr. Fournier - 06/2014 Kidney disease, chronic, sta ge III (GFR 30-59 ml/min) 04/25/2013 01/20/2015 Overview: Per CKD protocol #1 Arthralgia 02/25/2012 04/07/2020 COPD, severity to be determined 02/25/2012 12/15/2019 Overview: Per COPD GOLD Classification Mixed rhinitis 09/10/2011 04/07/2020 Throat swelling 09/10/2011 05/10/2018 Allergic rhinitis 08/19/2011 09/10/2011 Idiopathic scoliosis 08/31/2000 021 DERMATOPHYTOSIS OF NAIL toes 12/08/1997 05/10/2018 SPRAINS AND STRAINS, WRIST, UNSPECIFIED SITE 8 12/08/1997 Tension headache 06/26/1997 05/10/2018 TOX DIF GOITER NO CRISIS 05/12/199707/2020 Viral warts 05/12/1997 05/10/2018 Overview: ICD-10 update of inactive term documented as of this encounter (statuses as of 09/15/2023) Immunizations Name Administration Dates Next Due Pneumococcal Polysaccharide PPV23 (Pneumovax) Seasonal Influenza, Split, IIV3, With Preserve, Inj 01/17/2013 TDAP (age 10 and older)(Boostrix) 12/09/2019,11/2018 TDAP, Age 7 and older, IM (Adacel) 01/09/2009 documented as of this encounter Social History Tobacco Use Types Packs/Day Years Used Date Smoking Tobacco: Every Day Cigarettes 1 15 Smokeless Tobacco: Never Comments:started age 13 Alcohol Use Standard Drinks/Week Comments No 0 (1 standard drink = 0.6 oz pur e alcohol) PHQ-2 Answer Date Recorded PHQ-2 Score 8 05/06/2019 Hunger Vital Sign Answer Date Recorded Worried About Running Out of Food in the Last Ye ar Never true 01/07/2019 Ran Out of Food in the Last Year Never true 01/07/2019 Sex and Gender Information Value Date Recorded Sex Assigned at Female 04/10/2019 11:05 AM EST Gender Identity Female 04/10/2019 11:05 AM EST Sexual Orientation Choose not to disclose 2019 11:05 AM EST Job Start Date Occupation Industry Not on file Not on file Not on file documented as of this encounter Plan of Treatment Upcoming Encounters Date Type Department Care Team (Late st Contact Info) Description 09/16/2023 3:00 PM EDT Office Visit Orthopaedics [facility] [address] [place] [address] Lucero Ramirez MD [address] [place] [address] 01/06/2024 1:20 PM EST Office Visit Family Practice [facility] [address] [place] [address] Karla Yuen DO [address] [place] [address] 08/26/2024 8:00 AM EDT Office Visit Endocrinology [address] [place] [phone] Nina Chen PA-C [address] [facility] [place] [address] Health Maintenance Due Date Last Done Comments DISCUSS TOBACCO CESSATION (REFER TO SMARTSET #6411) 1983 HIV Screening 06/11/1998 Albumin/Creatinine Ratio 06/11/2001 Alpha-1 Antitrypsin 06/11/2001 Hepatitis C Screening 06/11/2001 Pneumococcal Vaccine: Pediatrics (0 to 5 Years) and At-Risk Patients (6 to 64 Years) (2 of 2 - PCV) 03/19/2018 03/19/2017 Depression Screening 05/05/2020 05/06/2019 COVID-19 Vaccine ( season) 2022 *CXR OR CT FOR COPD EVER 09/13/2023 Influenza Vaccine (FLU shot) (#1) 2023 01/17/2013 GFR 05/03/2024 05/04/2023, 08/30, 11/06/2020, Additional history exists TSH 07/05/2024 07/06/2023, 03/06/2023, 11/06/2020, Additional history exists Mammogram 07/14/2024 07/15/2023 O2 ASSESSMENT COMPLETED IN PAST YEAR FOR COPD 09/14/2024 09/15/2023 Lipid Panel 05/16/2025 05/16/2020, 05/31, 09/19/2011 Diabetes Screening 05/03/2026 05/04/2023, 0 09/09/2022, 11/06/2020, Additional history exists DTaP,Tdap,and Td Vaccines (5 - Td or Tdap) 12/08/2029 12/09/2019, 02/08/2019, 01/09/2009, Additional history exists Hepatitis B Vaccine Completed 05/20/1995, 11/20/1994, 10/21/1994 HPV (Gardasil) Vaccine Aged Out No lo nger eligible based on patient's age to complete this topic MENINGOCOCCAL (MENACTRA/MENVEO) Aged Out No longer eligible based on patient's age to complete this topic documented as of this encounter Medical Devices Implanted Type Area Jack Setter Device Identifier Shelf Expiration Date Model / Serial / Lot Silicone T-Tube [id number] - [id number] Implanted:Qty: 1 on 07/15/2018 by Frank Landin DO at OR [facility] Left: Ear [employer] 07/31/2027 [id number] / / [id number] Silicone T-Tube [id number] - [id number] Implanted:Qty: 1 on 07/15/2018 by Frank Landin DO at OR [facility] Right: Ear [employer] 07/31/2027 [id number] / / [id number] documented as of this encounter Care Teams Line Appliance Assembler Relationship Specialty Start Date End Date Daniele Howard CRNP [address] [facility] [place] [address] PCP - General Nurse Practitioner 09/13/23 documented as of this encounter
--- OUTSIDE RECORDS SUMMARY | 2023-09-27 09:12 | External Medical Summary | Summary of Care ---
Author Name Unknown Organization [facility] Address [address] [facility] [address] Phone [phone] Care Team Providers Care Generation Technician Name Role Phone Daniele Howard Primary Care Provider [phone] Encounter Details Date Type Department Care Team (Late st Contact Info) Description 09/15/2023 Patient Reported Data Patient Survey Ortho [facility] Allergies Active Allergy Reactions Criticality Noted Date Comments Amoxicillin 02/05/2001 Hives Moxifloxacin Hcl In Nacl Edema airway High 11/18/2010 [place] like her throat was closing off Bactrim [...] PD, group B, by GOLD 2017 classification ([facility]) Inhale 1 Puff by mouth 2 times a day. 60 Each 3 09/14/2020 Active Albuterol Sulfate (2.5 MG/3ML) 0.083% Inhalation Nebulization Solution (Proventil)Indication s:COPD, group B, by GOLD 2017 classification ([facility]) Inhale 1 Vial via nebulizer every 4 hours as needed for Wheezing. 60 mL 1 09/14/2020 Active Xisgahoj-Axmwgchgp-VW 3.5-90976-2 Otic Solution Administer into the left ear [...] lumbar microdiscectomy 08/10/2014 Overview: L4-L5, L5-S1 Dr Vieiar 04/2014 GERD (gastroesophageal reflux disease) 4 Tobacco [...] 09/16/2023 3:00 PM EDT Office Visit Orthopaedics [facility] [address] [place] [address] Lucero Ramirez MD [address] [place] [address] 01/06/2024 1:20 PM EST Office Visit Family Practice [facility] [address] [place] [address] Karla Yuen DO [address] [place] [address] 08/26/2024 8:00 AM EDT Office Visit Endocrinology Marily[address] [place] [phone] Nina Chen PA-C [address] [facility] [place] [address] Health Maintenance Due Date Last Done Comments DISCUSS TOBACCO CESSATION (REFER TO SMARTSET #5232) 1983 HIV Screening 06/11/1998 Albumin/Creatinine Ratio 06/11/2001 [...] this encounter Medical Devices Implanted Type Area Custom Studio Coordinator Device Identifier Shelf Expiration Date Model / Serial / Lot Silicone T-Tube [id number] - [id number] Implanted:Qty: 1 on 07/15/2018 by Frank Landin DO at OR [facility] Left: Ear [employer] 07/31/2027 [id number] / / [id number] Silicone T-Tube [id number] - [id number] Implanted:Qty: 1 on 07/15/2018 by Frank Landin DO at OR [facility] Right: Ear [employer] 07/31/2027 [id number] / / [id number] documented as of this encounter Care Teams Generation Technician Relationship Specialty Start Date End Date Daniele Howard CRNP [address] [facility] [place] [address] PCP - General Nurse Practitioner 09/13/23 documented as of this encounter
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
--- OUTSIDE RECORDS SUMMARY | 2023-09-27 09:12 | External Medical Summary | Summary of Care ---
Author Name Unknown Organization [facility] [address] [facility] [place] [address] Phone [phone] Care Team Providers Care Cafeteria Or Lunchroom Checker Name Role Phone Daniele Howard Primary Care Provider Encounter Details Date Type Department Care Team (Late st Contact Info) Description 09/15/2023 Patient Reported Data Patient Survey Ortho [facility] Allergies Active Allergy Reactions Criticality Noted Date Comments Amoxicillin 02/05/2001 Hives Moxifloxacin Hcl In Nacl Edema airway High 11/18/2010 [place] like her throat was closing off Bactrim [...] PD, group B, by GOLD 2017 classification ([facility]) Inhale 1 Puff by mouth 2 times a day. 60 Each 3 09/14/2020 Active Albuterol Sulfate (2.5 MG/3ML) 0.083% Inhalation Nebulization Solution (Proventil)Indication s:COPD, group B, by GOLD 2017 classification ([facility]) Inhale 1 Vial via nebulizer every 4 hours as needed for Wheezing. 60 mL 1 09/14/2020 Active Sawupbtr-Unsdvrayl-EM 3.5-58790-7 Otic Solution Administer into the left ear [...] 3:00 PM EDT Office Visit Orthopaedics [facility] [address] [place] [address] Lucero Ramirez MD [address] [place] [address] 01/06/2024 1:20 PM EST Office Visit Family Practice [facility] [address] [place] [address] Karla Yuen DO [address] [place] [address] 08/26/2024 8:00 AM EDT Office Visit Endocrinology [address] [place] [phone] Nina Chen PA-C [address] [facility] [place] [address] Health Maintenance Due Date Last Done Comments DISCUSS TOBACCO CESSATION (REFER TO SMARTSET #1976) 1985 HIV Screening 06/11/1998 Albumin/Creatinine Ratio 06/11/2001 [...] this encounter Medical Devices Implanted Type Area Repairer Helper Device Identifier Shelf Expiration Date Model / Serial / Lot Silicone T-Tube [id number] - [id number] Implanted:Qty: 1 on 07/15/2018 by Frank Landin DO at OR [facility] Left: Ear [employer] 07/31/2027 [id number] / / [id number] Silicone T-Tube [id number] - [id number] Implanted:Qty: 1 on 07/15/2018 by Frank Landin DO at OR [facility] Right: Ear [employer] 07/31/2027 [id number] / / [id number] documented as of this encounter Care Teams Cafeteria Or Lunchroom Checker Relationship Specialty Start Date End Date Daniele Howard CRNP [address] [facility] [place] [address] PCP - General Nurse Practitioner 09/13/23 documented as of this encounter
--- OUTSIDE RECORDS SUMMARY | 2023-09-27 09:12 | External Medical Summary | Summary of Care ---
Author Name Unknown Organization [facility] Address [address] [facility] [place] [address] Phone [phone] Care Team Providers Care Sack Keeper Name Role Phone Daniele Howard Primary Care Provider [phone] Encounter Details Date Type Department Care Team (Late st Contact Info) Description 09/15/2023 Patient Reported Data Patient Survey Ortho [facility] Allergies Active Allergy Reactions Criticality Noted Date Comments Amoxicillin 02/05/2001 Hives Moxifloxacin Hcl In Nacl Edema airway High 11/18/2010 [place] like her throat was closing off Bactrim [...] PD, group B, by GOLD 2017 classification ([facility]) Inhale 1 Puff by mouth 2 times a day. 60 Each 3 09/14/2020 Active Albuterol Sulfate (2.5 MG/3ML) 0.083% Inhalation Nebulization Solution (Proventil)Indication s:COPD, group B, by GOLD 2017 classification ([facility]) Inhale 1 Vial via nebulizer every 4 hours as needed for Wheezing. 60 mL 1 09/14/2020 Active Pywbpfih-Ikcuzenjh-ZS 3.5-97104-5 Otic Solution Administer into the left ear [...] 09/16/2023 3:00 PM EDT Office Visit Orthopaedics [facility] [address] [place] [address] Lucero Ramirez MD [address] [place] [address] 01/06/2024 1:20 PM EST Office Visit Family Practice [facility] [address] [place] [address] Karla Yuen DO [address] [place] [address] 08/26/2024 8:00 AM EDT Office Visit Endocrinology [address] [place] [phone] Nina Chen PA-C [address] [facility] [place] [address] Health Maintenance Due Date Last Done Comments DISCUSS TOBACCO CESSATION (REFER TO SMARTSET #8662) 1983 HIV Screening 06/11/1998 Albumin/Creatinine Ratio 06/11/2001 [...] this encounter Medical Devices Implanted Type Area Pig Machine Operator Helper Device Identifier Shelf Expiration Date Model / Serial / Lot Silicone T-Tube [id number] - [id number] Implanted:Qty: 1 on 07/15/2018 by Frank Landin DO at OR [facility] Left: Ear [employer] 07/31/2027 [id number] / / [id number] Silicone T-Tube [id number] - [id number] Implanted:Qty: 1 on 07/15/2018 by Frank Landin DO at OR [facility] Right: Ear [employer] 07/31/2027 [id number] / / [id number] documented as of this encounter Care Teams Sack Keeper Relationship Specialty Start Date End Date Daniele Howard CRNP [address] [facility] [place] [address] PCP - General Nurse Practitioner 09/13/23 documented as of this encounter
--- OUTSIDE RECORDS SUMMARY | 2023-09-27 09:12 | External Medical Summary | Summary of Care ---
Author Name Unknown Organization [facility] Address [address] [facility] [place] [address] Phone [phone] Care Team Providers Care Machine Sand Mixer Name Role Phone Daniele Howard Primary Care Provider [phone] Encounter Details Date Type Department Care Team (Late st Contact Info) Description 09/15/2023 Patient Reported Data Patient Survey Ortho OBERD Allergies Active Allergy Reactions Criticality Noted Date Comments Amoxicillin 02/05/2001 Hives Moxifloxacin Hcl In Nacl Edema airway High 11/18/2010 [place] like her throat was closing off Bactrim [...] B, by GOLD 2017 classification ([facility]) Inhale 1 Puff by mouth 2 times a day. 60 Each 3 09/14/2020 Active Albuterol Sulfate (2.5 MG/3ML) 0.083% Inhalation Nebulization Solution (Proventil)Indication s:COPD, group B, by GOLD 2017 classification ([facility]) Inhale 1 Vial via nebulizer every 4 hours as needed for Wheezing. 60 mL 1 09/14/2020 Active Mshqjjag-Jspsrhpfp-XO 3.5-90362-1 Otic Solution Administer into the left ear [...] 09/16/2023 3:00 PM EDT Office Visit Orthopaedics [facility] [address] [place] [address] Lucero Ramirez MD [address] [place] [address] 01/06/2024 1:20 PM EST Office Visit Family Practice [facility] [address] [place] [address] Karla Yuen DO [address] [place] [address] 08/26/2024 8:00 AM EDT Office Visit Endocrinology [address] [place] [phone] Nina Chen PA-C [address] [facility] [place] [address] Health Maintenance Due Date Last Done Comments DISCUSS TOBACCO CESSATION (REFER TO SMARTSET #7395) 1983 HIV Screening 06/11/1998 Albumin/Creatinine Ratio 06/11/2001 [...] this encounter Medical Devices Implanted Type Area Management Advisor Device Identifier Shelf Expiration Date Model / Serial / Lot Silicone T-Tube [id number] - [id number] Implanted:Qty: 1 on 07/15/2018 by Frank Landin DO at OR [facility] Left: Ear [employer] 07/31/2027 [id number] / / [id number] Silicone T-Tube [id number] - [id number] Implanted:Qty: 1 on 07/15/2018 by Frank Landin DO at OR [facility] Right: Ear [employer] 07/31/2027 [id number] / / [id number] documented as of this encounter Care Teams Machine Sand Mixer Relationship Specialty Start Date End Date Daniele Howard CRNP [address] [facility] [place] [address] PCP - General Nurse Practitioner 09/13/23 documented as of this encounter
--- OUTSIDE RECORDS SUMMARY | 2023-09-27 09:12 | External Medical Summary | Summary of Care ---
Author Name Unknown Organization [facility] Address [address] [facility] [place] [address] Phone [phone] Care Team Providers Care Engineer/Conductor Name Role Phone Daniele Howard Primary Care Provider [phone] Encounter Details Date Type Department Care Team (Late st Contact Info) Description 09/15/2023 Patient Reported Data Patient Survey Ortho OBERD Allergies Active Allergy Reactions Criticality Noted Date Comments Amoxicillin 02/05/2001 Hives Moxifloxacin Hcl In Nacl Edema airway High 11/18/2010 [place] like her throat was closing off Bactrim [...] PD, group B, by GOLD 2017 classification ([facility]) Inhale 1 Puff by mouth 2 times a day. 60 Each 3 09/14/2020 Active Albuterol Sulfate (2.5 MG/3ML) 0.083% Inhalation Nebulization Solution (Proventil)Indication s:COPD, group B, by GOLD 2017 classification ([facility]) Inhale 1 Vial via nebulizer every 4 hours as needed for Wheezing. 60 mL 1 09/14/2020 Active Tfkudmmk-Pnfzjjzeo-CM 3.5-52796-2 Otic Solution Administer into the left ear [...] 09/16/2023 3:00 PM EDT Office Visit Orthopaedics [facility] [address] [place] [address] Lucero Ramirez MD [address] [place] [address] 01/06/2024 1:20 PM EST Office Visit Family Practice [facility] [address] [place] [address] Karla Yuen DO [address] [place] [address] 08/26/2024 8:00 AM EDT Office Visit Endocrinology [address] [place] [phone] Nina Chen PA-C [address] [facility] [place] [address] Health Maintenance Due Date Last Done Comments DISCUSS TOBACCO CESSATION (REFER TO SMARTSET #4941) 1985 HIV Screening 06/11/1998 Albumin/Creatinine Ratio 06/11/2001 [...] this encounter Medical Devices Implanted Type Area Flat Lock Machine Operator Device Identifier Shelf Expiration Date Model / Serial / Lot Silicone T-Tube [id number] - [id number] Implanted:Qty: 1 on 07/15/2018 by Frank Landin DO at OR [facility] Left: Ear [employer] 07/31/2027 [id number] / / [id number] Silicone T-Tube [id number] - [id number] Implanted:Qty: 1 on 07/15/2018 by Frank Landin DO at OR [facility] Right: Ear [employer] 07/31/2027 [id number] / / [id number] documented as of this encounter Care Teams Engineer/Conductor Relationship Specialty Start Date End Date Daniele Howard CRNP [address] [facility] [place] [address] PCP - General Nurse Practitioner 09/13/23 documented as of this encounter
--- OUTSIDE RECORDS SUMMARY | 2023-09-27 09:12 | External Medical Summary | Summary of Care ---
Author Name Unknown Organization [facility] Address [address] [facility] [place] [address] Phone [phone] Care Team Providers Care Evs Attendant Name Role Phone Daniele Howard Primary Care Provider Encounter Details Date Type Department Care Team (Late st Contact Info) Description 09/15/2023 Patient Reported Data Patient Survey Ortho OBERD Allergies Active Allergy Reactions Criticality Noted Date Comments Amoxicillin 02/05/2001 Hives Moxifloxacin Hcl In Nacl Edema airway High 11/18/2010 [place] like her throat was closing off Bactrim [...] PD, group B, by GOLD 2017 classification ([facility]) Inhale 1 Puff by mouth 2 times a day. 60 Each 3 09/14/2020 Active Albuterol Sulfate (2.5 MG/3ML) 0.083% Inhalation Nebulization Solution (Proventil)Indication s:COPD, group B, by GOLD 2017 classification ([facility]) Inhale 1 Vial via nebulizer every 4 hours as needed for Wheezing. 60 mL 1 09/14/2020 Active Dawytjgr-Wjuggbley-MM 3.5-84930-1 Otic Solution Administer into the left ear [...] 09/16/2023 3:00 PM EDT Office Visit Orthopaedics [facility] [address] [place] [address] Lucero Ramirez MD [address] [place] [address] 01/06/2024 1:20 PM EST Office Visit Family Practice [facility] [address] [place] [address] Karla Yuen DO [address] [place] [address] 08/26/2024 8:00 AM EDT Office Visit Endocrinology [address] [place] [phone] Nina Chen PA-C [address] [facility] [place] [address] Health Maintenance Due Date Last Done Comments DISCUSS TOBACCO CESSATION (REFER TO SMARTSET #5987) 1985 HIV Screening 06/11/1998 Albumin/Creatinine Ratio 06/11/2001 [...] this encounter Medical Devices Implanted Type Area Special Weapons Unit Officer Device Identifier Shelf Expiration Date Model / Serial / Lot Silicone T-Tube [id number] - [id number] Implanted:Qty: 1 on 07/15/2018 by Frank Landin DO at OR [facility] Left: Ear [employer] 07/31/2027 [id number] / / [id number] Silicone T-Tube [id number] - [id number] Implanted:Qty: 1 on 07/15/2018 by Frank Landin DO at OR [facility] Right: Ear [employer] 07/31/2027 [id number] / / [id number] documented as of this encounter Care Teams Evs Attendant Relationship Specialty Start Date End Date Daniele Howard CRNP [address] [facility] [place] [address] PCP - General Nurse Practitioner 09/13/23 documented as of this encounter
--- OUTSIDE RECORDS SUMMARY | 2023-09-27 09:12 | External Medical Summary | Summary of Care ---
Author Name Unknown Organization [facility] Address [address] [facility] [place] [address] Phone [phone] Care Team Providers Care Agriculture Technician Name Role Phone Daniele Howard Primary Care Provider [phone] Encounter Details Date Type Department Care Team (Late st Contact Info) Description 09/15/2023 Patient Reported Data Patient Survey Ortho OBERD Allergies Active Allergy Reactions Criticality Noted Date Comments Amoxicillin 02/05/2001 Hives Moxifloxacin Hcl In Nacl Edema airway High 11/18/2010 [place] like her throat was closing off Bactrim [...] PD, group B, by GOLD 2017 classification ([facility]) Inhale 1 Puff by mouth 2 times a day. 60 Each 3 09/14/2020 Active Albuterol Sulfate (2.5 MG/3ML) 0.083% Inhalation Nebulization Solution (Proventil)Indication s:COPD, group B, by GOLD 2017 classification ([facility]) Inhale 1 Vial via nebulizer every 4 hours as needed for Wheezing. 60 mL 1 09/14/2020 Active Prsgnhbp-Vheowsxay-QS 3.5-44374-9 Otic Solution Administer into the left ear [...] 09/16/2023 3:00 PM EDT Office Visit Orthopaedics [facility] [address] [place] [address] Lucero Ramirez MD [address] [place] [address] 01/06/2024 1:20 PM EST Office Visit Family Practice [facility] [address] [place] [address] Karla Yuen DO [address] [place] [address] 08/26/2024 8:00 AM EDT Office Visit Endocrinology [address] [place] [phone] Nina Chen PA-C [address] [facility] [place] [address] Health Maintenance Due Date Last Done Comments DISCUSS TOBACCO CESSATION (REFER TO SMARTSET #8056) 1985 HIV Screening 06/11/1998 Albumin/Creatinine Ratio 06/11/2001 [...] this encounter Medical Devices Implanted Type Area Teradata Architect Device Identifier Shelf Expiration Date Model / Serial / Lot Silicone T-Tube [id number] - [id number] Implanted:Qty: 1 on 07/15/2018 by Frank Landin DO at OR [facility] Left: Ear [employer] 07/31/2027 [id number] / / [id number] Silicone T-Tube [id number] - [id number] Implanted:Qty: 1 on 07/15/2018 by Frank Landin DO at OR [facility] Right: Ear [employer] 07/31/2027 [id number] / / [id number] documented as of this encounter Care Teams Agriculture Technician Relationship Specialty Start Date End Date Daniele Howard CRNP [address] [facility] [place] [address] PCP - General Nurse Practitioner 09/13/23 documented as of this encounter
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
--- NOTE | 2023-09-27 09:37 | Emergency Department Note ---
History of Present Illness General Chief complaint: Abdominal Pain Stated complaint: INDIGESTION, VOMITING, ABD PAIN Time Seen by Provider: 09/27/23 09:15 History of Present Illness Maximum Pain Intensity: 7 Patient is a 38-year-old female with past medical history significant for hypertension and hypothyroidism who presents to the emergency department for evaluation of abdominal pain and vomiting that started acutely this morning. Patient reports that for the last several months, she has been waking up at 2:00 in the morning with heartburn/indigestion, and often will regurgitate and vomit. The pain goes away after she vomits. She has tried Tums and Prilosec sporadically for her symptoms, with minimal relief. She does carry a diagnosis of GERD in her EMR. She has not seen anyone for her symptoms. This morning however, she states that she woke up around 0600 with upper abdominal/right- sided pain. She has vomited 3 times. The pain is rated a 7/10. She is continues to feel nauseous. She has chronic diarrhea and denies any changes in this. She denies any blood in her vomit or stool. No urinary symptoms, no fever or chills. No sick contacts or unusual food or water consumption. She tried taking Tums this morning but she vomited it up. She is status post hysterectomy, but still has her gallbladder and appendix. Home Medications Medication Instructions Recorded Confirmed Type albuterol sulfate 90 mcg/actuation 2 inh inhalation Q4 PRN SHORT OF 02/03/19 09/27/23 History breath activated powder BREATH inhaler,sensor levothyroxine 200 mcg tablet 200 mcg PO QAM 02/03/19 09/27/23 History hydrochlorothiazide 25 mg tablet 25 mg PO QAM 12/15/22 09/27/23 History losartan 50 mg tablet 50 mg PO QAM 12/15/22 09/27/23 History cyclobenzaprine 10 mg tablet 10 mg PO TID PRN Muscle Spasm 09/09/23 09/27/23 History cyclosporine 0.05 % eye drops in a 1 drp OPB DAILY 09/09/23 09/27/23 History dropperette (Restasis) Allergies Allergy/AdvReac Type Severity Reaction Status Date / Time bee venom protein (honey bee) Allergy Severe THROAT Verified 09/27/23 12:59 SWELLS,MOUTH cat dander Allergy Severe EYES AND Verified 09/27/23 12:59 THROAT SWELLS dog dander Allergy Severe EYES AND Verified 09/27/23 12:59 THROAT SWELLS mold Allergy Severe EYES AND Verified 09/27/23 12:59 THROAT SWELLS moxifloxacin Allergy Severe THROAT Verified 09/27/23 12:59 SWELLING sulfamethoxazole Allergy Severe THROAT Verified 09/27/23 12:59 SWELLS trimethoprim Allergy Severe THROAT Verified 09/27/23 12:59 SWELLS amoxicillin Allergy Intermediate hives Verified 09/27/23 12:59 Penicillins Allergy Intermediate HIVES Verified 09/27/23 12:59 Dust Mite Extract Allergy Intermediate STUFFY NOSE Uncoded 09/27/23 12:59 Past Med/Surg History Problem List Acute cholecystitis History of recurrent ear infection Strep pharyngitis Hypothyroidism (Chronic) Recurrent displacement of lumbar disc Pneumonia (Acute) Hypokalemia (Acute) Reactive arthritis (Acute) Encounter for pre-operative examination Medical History Morbid obesity Hypertension Degenerative disc disease Urinary, incontinence, stress female GERD (gastroesophageal reflux disease) Hx of Graves' disease s/p radioactive iodine/now hypothyroid on levothyroxine Hypothyroidism Anemia Anxiety and depression Restless leg syndrome Hx of migraines Chronic obstructive pulmonary disease Surgical History History of laparoscopy History of carpal tunnel release R/L Hx of hand surgery R/L (cyst removed) Fusion of spine Lumbar (2 surgeries) History of esophagogastroduodenoscopy (EGD) H/O: hysterectomy Hx of radioactive iodine thyroid ablation History of tooth extraction History of tonsillectomy and adenoidectomy History of myringotomy Family History Other No significant family history Social History Smoking Status: Current every day smoker Tobacco Type: Cigarettes Cigarettes Per Day: <1 pack; Second Hand Exposure: No; Do You Dip or Chew Tobacco: No; Hx Alcohol Use: No Hx Substance Use: No Preferred Language: Serbian Communication Ability: Effective Haul Truck Driver Required: No Beliefs That Will Affect Care: None Current Living Situation: Family Feels Safe at Home: Yes Assistive Devices: Glasses and Nebulizer Review of Systems A total of 10 systems reviewed and were otherwise negative Physical Exam Vital Signs Vital Signs - 24 hr 09/27/23 09:11 09/27/23 09:30 09/27/23 12:42 Temperature 36.2 C L Temperature Source Temporal Artery Scan Pulse Rate 82 Pulse Rate [Finger] 78 67 Pulse Rhythm [Finger] Pulse Strength [Finger] Respiratory Rate 20 20 20 Respiratory Effort / Characteristics Non-Labored Non-Labored Spontaneous Respiratory Depth Normal Normal Respiratory Pattern Blood Pressure 158/102 H Blood Pressure [Right Arm] 161/102 H 147/73 H Blood Pressure Mean 120 Blood Pressure Mean [Right Arm] 121 97 Pulse Oximetry 99 98 97 Oxygen Delivery Method Room Air Room Air Sepsis Recent Fever Within 48 Hours No Sepsis New/Unexplained Change in Mental Status No Sepsis Action Taken by Nursing No Action Required 09/27/23 14:00 09/27/23 15:00 Temperature Temperature Source Pulse Rate Pulse Rate [Finger] 76 72 Pulse Rhythm [Finger] Regular Pulse Strength [Finger] Normal Respiratory Rate 18 20 Respiratory Effort / Characteristics Non-Labored Spontaneous Respiratory Depth Normal Respiratory Pattern Regular Blood Pressure Blood Pressure [Right Arm] 130/72 134/76 Blood Pressure Mean Blood Pressure Mean [Right Arm] 91 95 Pulse Oximetry 98 98 Oxygen Delivery Method Room Air Sepsis Recent Fever Within 48 Hours Sepsis New/Unexplained Change in Mental Status Sepsis Action Taken by Nursing CONSTITUTIONAL: Obese 38-year-old female sitting semiupright on the gurney in no acute distress. EYES: Pupils equal, round, reactive to light and accommodation. EOMs intact without nystagmus. Sclera are anicteric. ENT: Tympanic membranes intact, with normal landmarks. External canals are clear. Oral and nasopharynx are clear. Mucous membranes are moist, no lesions, tongue and gums appear normal. CARDIOVASCULAR: Regular rate and rhythm. Peripheral pulses easy to palpable. RESPIRATORY: Breath sounds equal and clear to auscultation. GI: Bowel sounds are present. Abdomen is soft, obese, tender to percussion and palpation in the epigastric, right upper quadrant and right lower quadrant. No guarding or rebound. MUSCULOSKELETAL: Full range of motion of extremities x 4 with good strength. No cyanosis, edema, joint tenderness or swelling. No deformity. INTEGUMENTARY: No lesions or rash, normal skin turgor. Course Course The patient was seen and assessed as above. External medical records are reviewed. She presents to the emergency department for evaluation of right- sided abdominal pain and vomiting that started acutely this morning. IV lock was initiated, laboratory studies were collected including CBC with differential, CMP, lipase and urinalysis. test deferred as she is status post hysterectomy. She was treated with IV Pepcid and Zofran and hydrated with normal saline solution. CT scan of the abdomen and pelvis with contrast was ordered. Diagnostics, as interpreted by me: Laboratory studies: WBC 10.7, left shift noted. No anemia. No significant electrolyte imbalance, no DANGELO, no transaminitis. Minimal elevation of her lipase at 92 but not felt to be acutely indicative of acute pancreatitis. Urine microscopy notes a contaminated sample with epithelial cells, calcium oxalate crystals and mucus, trace leukocyte esterase noted otherwise no other pop indicators for infection. Imaging studies: CT scan of the abdomen pelvis with IV contrast concerning for acute cholecystitis. Cholelithiasis noted with gallbladder wall thickening and trace pericholecystic fluid. Appendix is normal. Gallbladder ultrasound confirms CT findings. Patient was reassessed and CT scan findings were discussed with her. Consultation was placed with general surgery, Dr. Jacques. She did request something additional for nausea and was given another dose of Zofran IV. She declined medication for pain. I was able to finally discuss the patient with general surgery, he came to the emergency department to evaluate her, and told the patient that he would be admitting her to the hospital with plan for the OR tomorrow. Please refer to surgical H&P for further information and orders. Patient did rest comfortably and remained stable in the emergency department awaiting surgical evaluation. She was reassessed frequently by myself and declined any additional medication or needs. Differential diagnosis: GERD, gastritis, esophagitis, peptic ulcer disease, pancreatitis, biliary colic, acute cholecystitis, ascending cholangitis, choledocholithiasis, bowel obstruction, perforation, appendicitis, UTI, IBS, among others. Administered Medications Discontinued Medications Sodium Chloride (Nss) 1,000 mls @ 999 mls/hr IV .Q1H1M VIDHYA Stop: 09/27/23 10:32 Last Infusion: 09/27/23 10:43 Dose: Infused Documented By: Admin: 09/27/23 09:42 Dose: 999 mls/hr Documented By: ESTEFANI Famotidine (Pepcid 20mg Iv Push) 20 mg in 5 mls @ 2.5 mls/min IV NOW STA Stop: 09/27/23 09:32 Last Admin: 09/27/23 09:46 Dose: 2.5 mls/min Documented By: ESTEFANI Ioversol (Optiray 320 100ml) 93 ml IV ONCE ONE Stop: 09/27/23 10:38 Last Admin: 09/27/23 10:38 Dose: 93 ml Documented By: HEMAL Ondansetron HCl (Ondansetron Inj 2 Mg/Ml 2 Ml Vial) 4 mg IV NOW STA Stop: 09/27/23 09:32 Last Admin: 09/27/23 09:46 Dose: 4 mg Documented By: ESTEFANI Ondansetron HCl (Ondansetron Inj 2 Mg/Ml 2 Ml Vial) 4 mg IV NOW STA Stop: 09/27/23 12:52 Last Admin: 09/27/23 12:58 Dose: 4 mg Documented By: TATO Medical Decision Making Differential Diagnosis See ED Course. Medical Records Attestation: I reviewed the patient's medical records. Home Medications Current Medication List: was personally reviewed by me Laboratory Data Attestation: I reviewed the patient's lab results. 09/27/23 09:45 09/27/23 09:45 Lab Results 09/27/23 09/27/23 Range/Units 09:45 09:50 WBC 10.77 (4.8-10.8) K/ul RBC 4.68 (4.20-5.40) M/uL Hgb 13.9 (12.0-16.0) g/dl Hct 42.4 (37.0-47.0) % MCV 90.6 (80.0-100.0) fL MCH 29.7 (25.0-34.0) pg MCHC 32.8 (32.0-36.0) g/dL RDW Std Deviation 45.4 (36.4-46.3) fL RDW Coeff of Mc 13.8 (11.5-14.5) % Plt Count 370 (130-400) K/uL MPV 8.9 L (9.4-12.4) fL Immature Gran % (Auto) 0.5 % Neut % (Auto) 69.3 % Lymph % (Auto) 24.0 % [place] % (Auto) 5.8 % Eos % (Auto) 0.0 % Baso % (Auto) 0.4 % Neut # (Auto) 7.46 H (1.40-6.50) K/uL Lymph # (Auto) 2.59 (1.20-3.40) K/uL [place] # (Auto) 0.63 H (0.11-0.59) K/uL Eos # (Auto) 0.00 (0.00-0.50) K/uL Baso # (Auto) 0.04 (0.00-0.20) K/uL Immature Gran # (Auto) 0.05 (0.01-0.20) K/uL Sodium 138 (136-145) mmol/L Potassium 3.6 (3.5-5.1) mmol/L Chloride 102 (98-107) mmol/L Carbon Dioxide 30 (21-32) mmol/L Anion Gap 6 (3-11) BUN 11 (6-23) mg/dl Creatinine 1.13 (0.6-1.2) mg/dl Est Cr Clr Drug Dosing 83.3 ml/min Est GFR ( Amer) 70.4 ml/min Est GFR (Non-Af Amer) 60.7 ml/min BUN/Creatinine Ratio 9.7 L (10-20) Glucose 94 (70-99(Fasting)) mg/dl Calcium 10.1 (8.6-10.3) mg/dl Total Bilirubin 0.4 (0.2-1.0) mg/dl AST 18 (13-39) U/L ALT 19 (7-52) U/L Alkaline Phosphatase 115 H (34-104) U/L Total Protein 7.8 (6.0-8.3) gm/dl Albumin 4.3 (3.4-5.0) gm/dl Globulin 3.5 (2.5-4.0) gm/dl Albumin/Globulin Ratio 1.2 (0.9-2) Lipase 92 H (11-82) U/L Urine Color Yellow Urine Appearance Cloudy A (Clear) Urine pH 6.0 (4.5-7.5) Ur Specific [place] 1.030 (1.000-1.030) Urine Protein Trace H (Negative) Urine Glucose (UA) Negative (Negative) Urine Ketones Trace H (Negative) Urine Blood Negative (Negative) Urine Nitrite Negative (Negative) Urine Bilirubin Negative (Negative) Urine Urobilinogen Negative (Negative) Ur Leukocyte Esterase Trace H (Negative) Urine WBC (Auto) 0-5 (0-5) /hpf Urine RBC (Auto) 0-2 (0-2) /hpf U Hyaline Cast (Auto) 0-2 (0-2) /lpf U Epithel Cells (Auto) 6-10 H (0-2) /hpf Urine Bacteria (Auto) None Seen (None Seen) Calcium Oxalate Crystal Present A (None Prsent) Urine Mucus Present A (None Prsent) Imaging Data Attestation: I personally reviewed and interpreted this imaging study as follows: Radiologist's Impression: Abdomen/Pelvis CT 09/27/23 09:[address] WITH IV CONTRAST CT DOSE: 1366.67 mGy.cm HISTORY: Acute right-sided abdominal pain with nausea and vomiting. RIGHT ABD PAIN, N/V TECHNIQUE: Multiaxial CT images of the abdomen and pelvis were performed following the IV administration of Optiray, A dose lowering technique was utilized adhering to the principles of ALARA. COMPARISON STUDY: None. FINDINGS: Clear lung bases. No free air. Spleen is mildly enlarged, 13.8 cm. Liver is enlarged at 19 cm. Hepatic steatosis. Patency of the hepatic and portal veins. No evidence of cirrhosis. Cholelithiasis with mild gallbladder wall thickening and trace pericholecystic infiltration. No biliary ductal dilation. Unremarkable pancreas. Bilateral adrenal myolipoma measuring up to 2.1 cm on the right. Unremarkable kidneys. Decompressed urinary bladder with wall thickening. The uterus appears surgically absent. Bilateral ovarian follicles. Aorta and IVC are unremarkable. No lymphadenopathy. There is no bowel obstruction or bowel wall thickening. Colonic diverticulosis. Normal appendix. Unremarkable soft tissues. Postoperative changes of the lumbar spine. IMPRESSION: 1. Cholelithiasis with CT findings suggestive of acute cholecystitis. Surgical consultation is advised. 2. No bowel obstruction or bowel wall thickening. 3. Normal appendix. 4. Hepatosplenomegaly with hepatic steatosis. ACT 112: Negative or not required by law. The above report was generated using voice recognition software. It may contain grammatical, syntax or spelling errors. Electronically signed by: Kenny Reaves M.D. 09/27/2023 11:29 AM Gallbladder Ultrasound 09/27/23 11:34 ABDOMINAL ULTRASOUND, RIGHT UPPER QUADRANT HISTORY: Acute right upper quadrant abdominal pain cholecystitis, abnormal CT. COMPARISON: CT of same day FINDINGS: Limited exam secondary to patient body habitus. Pancreas: The pancreas demonstrates a normal echotexture. Liver: Hepatic steatosis. Liver measures 22 cm in length. Gallbladder: Cholelithiasis with gallstones measuring up to 3 cm. Gallbladder wall thickening measuring up to 5 mm. Pericholecystic infiltration better seen on CT study of same day. Negative sonographic Gordon's sign. CBD: 6 mm Right kidney: No hydronephrosis. IMPRESSION: 1. Cholelithiasis with findings suspicious for acute cholecystitis, better appreciated on the same day CT study. The sonographic Gordon's sign however was reported as negative. Surgical consultation advised. 2. No biliary ductal dilation. 3. Hepatic steatosis. ACT 112: Negative or not required by law. Electronically signed by: Kenny Reaves M.D. 09/27/2023 12:16 PM MDM Narrative See ED Course. Impression & Plan Acute cholecystitis Discharge Plan Visit Data Chief Complaint: Abdominal Pain Stated Complaint: INDIGESTION, VOMITING, ABD PAIN ED Provider: Pawel Hathaway ED Midlevel Provider: Liliam Bustos Discharge Problem: Acute cholecystitis Patient Disposition: Being Evaluated by Surgeon Forms Stand Alone Forms: [facility] [employer] Prescriptions Prescriptions: No Action levothyroxine 200 mcg Tablet 200 mcg PO QAM albuterol sulfate 90 mcg/actuation Aero Powdr Breath Act W/Sensor 2 inh INHALATION Q4 PRN (Reason: SHORT OF BREATH) losartan 50 mg Tablet 50 mg PO QAM hydrochlorothiazide 25 mg Tablet 25 mg PO QAM cyclosporine [Restasis] 0.05 % dropperette 1 drp OPB DAILY cyclobenzaprine 10 mg tablet 10 mg PO TID PRN (Reason: Muscle Spasm) Referrals Referrals: Karla Yuen DO [Primary Care Provider] -
[2023-09-27] MEDS: SODIUM CHLORIDE 0.9% 1,000 ML IV SCH (09:42)
[2023-09-27] MEDS: FAMOTIDINE 20MG IV PUSH 20 MG/5 ML SYR IV STA (09:46)
[2023-09-27] MEDS: ONDANSETRON INJ 2 MG/ML 2 ML VIAL IV STA ×2 (09:46→12:58)
[2023-09-27 09:56] LABS: Basophils # (auto) 0.04 K/uL (0.00-0.20); Basophils % (auto) 0.4 %; Hematocrit (blood only) 42.4 % (37.0-47.0); Hemoglobin 13.9 g/dl (12.0-16.0); Immature Granulocytes # (auto) 0.05 K/uL (0.01-0.20); Immature Granulocytes % (auto) 0.5 %; Lymphocytes # (auto) 2.59 K/uL (1.20-3.40); Mean Corpuscular Hemoglobin 29.7 pg (25.0-34.0); Mean Corpuscular Hgb Conc 32.8 g/dL (32.0-36.0); Mean Corpuscular Volume 90.6 fL (80.0-100.0); Mean Platelet Volume 8.9 fL (9.4-12.4); Monocytes # (auto) 0.63 K/uL (0.11-0.59); Monocytes % (auto) 5.8 %; Neutrophils # (auto) 7.46 K/uL (1.40-6.50); Neutrophils % (auto) 69.3 %; Platelet Count 370 K/uL (130-400); RDW Coefficient of Variation 13.8 % (11.5-14.5); RDW Standard Deviation 45.4 fL (36.4-46.3); Red Blood Count 4.68 M/uL (4.20-5.40); White Blood Count 10.77 K/ul (4.8-10.8)
[2023-09-27 10:19] LABS: Appearance Urine Cloudy (Clear); Bacteria Urine Automated None Seen (None Seen); Bilirubin Urine Negative (Negative); Blood Urine Negative (Negative); Calcium Oxalate Crystals Urine Present (None Prsent); Cast Urine Automated 0-2 /lpf (0-2); Color Urine Yellow; Glucose Urine UA Negative (Negative); Ketones Urine Trace (Negative); Leukocyte Esterase Urine Trace (Negative); Mucus Urine Present (None Prsent); Nitrite Urine Negative (Negative); Protein Urine Trace (Negative); RBC Urine Automated 0-2 /hpf (0-2); Urobilinogen Urine Negative (Negative); WBC Urine Automated 0-5 /hpf (0-5)
[2023-09-27 10:20] LABS: Albumin Globulin Ratio 1.2 (0.9-2); Albumin Level 4.3 gm/dl (3.4-5.0); BUN Creatinine Ratio 9.7 (10-20); Bilirubin,Total 0.4 mg/dl (0.2-1.0); Calcium 10.1 mg/dl (8.6-10.3); Creatinine Clr Calc Pharmacy 83.3 ml/min; Est GFR (African American) 70.4 ml/min; Est GFR (Non-African American) 60.7 ml/min; Globulin 3.5 gm/dl (2.5-4.0); Potassium 3.6 mmol/L (3.5-5.1); Total Protein 7.8 gm/dl (6.0-8.3)
[2023-09-27] MEDS: OPTIRAY 320 100ml IV ONE (10:38)
--- NOTE | 2023-09-27 11:32 | CT Scan Report ---
ABDOMEN AND PELVIS CT WITH IV CONTRAST CT DOSE: 1366.67 mGy.cm HISTORY: Acute right-sided abdominal pain with nausea and vomiting. RIGHT ABD PAIN, N/V TECHNIQUE: Multiaxial CT images of the abdomen and pelvis were performed following the IV administrat ion of Optiray, A dose lowering technique was utilized adhering to the principles of ALARA. COMPARISON STUDY: None. FINDINGS: Clear lung bases. No free air. Spleen is mildly enlarged, 13.8 cm. Liver is enlarged at 19 cm. Hepatic steatosis. Patency of the hepatic and portal veins. No evidence of cirrhosis. Cholelithia sis with mild gallbladder wall thickening and trace pericholecystic infiltration. No biliary ductal d ilation. Unremarkable pancreas. Bilateral adrenal myolipoma measuring up to 2.1 cm on the right. Unremarkable kidneys. Decompressed urinary bladder with wall thickening. The uterus appears surgicall y absent. Bilateral ovarian follicles. Aorta and IVC are unremarkable. No lymphadenopathy. There is n o bowel obstruction or bowel wall thickening. Colonic diverticulosis. Normal appendix. Unremarkable s oft tissues. Postoperative changes of the lumbar spine. IMPRESSION: 1. Cholelithiasis with CT findings suggestive of acute cholecystitis. Surgical consultation is advise d. 2. No bowel obstruction or bowel wall thickening. 3. Normal appendix. 4. Hepatosplenomegaly with hepatic steatosis. ACT 112: Negative or not required by law. The above report was generated using voice recognition software. It may contain grammatical, syntax o r spelling errors. Electronically signed by: Kenny Reaves M.D. 09/27/2023 11:29 AM
--- NOTE | 2023-09-27 12:18 | Ultrasound Report ---
ABDOMINAL ULTRASOUND, RIGHT UPPER QUADRANT HISTORY: Acute right upper quadrant abdominal pain cholecystitis, abnormal CT. COMPARISON: CT of same day FINDINGS: Limited exam secondary to patient body habitus. Pancreas: The pancreas demonstrates a normal echotexture. Liver: Hepatic steatosis. Liver measures 22 cm in length. Gallbladder: Cholelithiasis with gallstones measuring up to 3 cm. Gallbladder wall thickening measuri ng up to 5 mm. Pericholecystic infiltration better seen on CT study of same day. Negative sonographic Gordon's sign. CBD: 6 mm Right kidney: No hydronephrosis. IMPRESSION: 1. Cholelithiasis with findings suspicious for acute cholecystitis, better appreciated on the same da y CT study. The sonographic Gordon's sign however was reported as negative. Surgical consultation adv ised. 2. No biliary ductal dilation. 3. Hepatic steatosis. ACT 112: Negative or not required by law. Electronically signed by: Kenny Reaves M.D. 09/27/2023 12:16 PM
--- NOTE | 2023-09-27 16:04 | History & Physical Report ---
Date of Service September 27, 2023 Assessment & Plan (1) Acute cholecystitis: Plan: Present situation was discussed with the patient and parents will admit the patient slight continue with IV antibiotics and plan surgery for tomorrow Risk and complication floor explained to patient including bleeding infection and the surgical procedure which be laparoscopic possible open were all agreed upon All question answered Will fill out surgical consent tomorrow Plan Admit plan for surgery tomorrow History of Present Illness Chief Complaint: Right upper quadrant pain has been going on for 2 months Primary Care Provider: Karla Yuen, This 38-year-old female here with her father and mother has had a 2-month history of abdominal pain and nausea with certain food intakes came to the emergency room today and found to have acute cholecystitis Allergies Allergy/AdvReac Type Severity Reaction Status Date / Time bee venom protein (honey bee) Allergy Severe THROAT Verified 09/27/23 12:59 SWELLS,MOUTH cat dander Allergy Severe EYES AND Verified 09/27/23 12:59 THROAT SWELLS dog dander Allergy Severe EYES AND Verified 09/27/23 12:59 THROAT SWELLS mold Allergy Severe EYES AND Verified 09/27/23 12:59 THROAT SWELLS moxifloxacin Allergy Severe THROAT Verified 09/27/23 12:59 SWELLING sulfamethoxazole Allergy Severe THROAT Verified 09/27/23 12:59 SWELLS trimethoprim Allergy Severe THROAT Verified 09/27/23 12:59 SWELLS amoxicillin Allergy Intermediate hives Verified 09/27/23 12:59 Penicillins Allergy Intermediate HIVES Verified 09/27/23 12:59 Dust Mite Extract Allergy Intermediate STUFFY NOSE Uncoded 09/27/23 12:59 Home Medications Medication Instructions Recorded Confirmed Type albuterol sulfate 90 mcg/actuation 2 inh inhalation Q4 PRN SHORT OF 02/03/19 09/27/23 History breath activated powder BREATH inhaler,sensor levothyroxine 200 mcg tablet 200 mcg PO QAM 02/03/19 09/27/23 History hydrochlorothiazide 25 mg tablet 25 mg PO QAM 12/15/22 09/27/23 History losartan 50 mg tablet 50 mg PO QAM 12/15/22 09/27/23 History cyclobenzaprine 10 mg tablet 10 mg PO TID PRN Muscle Spasm 09/09/23 09/27/23 History cyclosporine 0.05 % eye drops in a 1 drp OPB DAILY 09/09/23 09/27/23 History dropperette (Restasis) Past Med/Surg History Problem List (Updated 09/27/23 @ 16:02 by Zachariah Jacques MD, FACS) Acute cholecystitis History of recurrent ear infection Strep pharyngitis Hypothyroidism (Chronic) Recurrent displacement of lumbar disc Pneumonia (Acute) Hypokalemia (Acute) Reactive arthritis (Acute) Encounter for pre-operative examination Medical History Morbid obesity Hypertension Degenerative disc disease Urinary, incontinence, stress female GERD (gastroesophageal reflux disease) Hx of Graves' disease s/p radioactive iodine/now hypothyroid on levothyroxine Hypothyroidism Anemia Anxiety and depression Restless leg syndrome Hx of migraines Chronic obstructive pulmonary disease Surgical History History of laparoscopy History of carpal tunnel release R/L Hx of hand surgery R/L (cyst removed) Fusion of spine Lumbar (2 surgeries) History of esophagogastroduodenoscopy (EGD) H/O: hysterectomy Hx of radioactive iodine thyroid ablation History of tooth extraction History of tonsillectomy and adenoidectomy History of myringotomy Family History Other No significant family history Social History Smoking Status: Current every day smoker Tobacco Type: Cigarettes Cigarettes Per Day: <1 pack; Second Hand Exposure: No; Do You Dip or Chew Tobacco: No; Hx Alcohol Use: No Hx Substance Use: No Preferred Language: Vietnamese Communication Ability: Effective Mailing Machine Helper Required: No Beliefs That Will Affect Care: None Current Living Situation: Family Feels Safe at Home: Yes Assistive Devices: Glasses and Nebulizer Review of Systems Multiple issues as addressed to her history present time the only significant complaint is been right upper quadrant pain and nausea for 2 months She has been followed by primary physician to monitor her hypertension Physical Exam Physical Exam: Alert coherent with monotone affect Sclera nonicteric No obvious cervical lymphadenopathy Lungs no audible rales or rhonchi Heart normal sinus rhythm Abdomen soft nontender except right upper quadrant guarding and tenderness on deep palpation scar from previous laparoscopic gynecologic procedure noted no hernias Extremities grossly normal Results & Data Vital Signs (Past 12 Hours) Vital Signs Temp Pulse Pulse Resp BP BP Pulse Ox 09/27/23 15:00 72 20 134/76 98 09/27/23 14:00 76 18 130/72 98 09/27/23 12:42 67 20 147/73 H 97 09/27/23 09:30 78 20 161/102 H 98 09/27/23 09:11 36.2 C L 82 20 158/102 H 99 O2 Del Method 09/27/23 15:00 Room Air 09/27/23 14:00 09/27/23 12:42 09/27/23 09:30 Room Air 09/27/23 09:11 Room Air Laboratory Results Noted Diagnostic Findings Noted
[2023-09-27] MEDS ORDERED: HYDROmorphone INJ 1 MG/ML SYRINGE IV PRN (16:09)
[2023-09-27] MEDS ORDERED: CIPROFLOXACIN / D5W 400 MG/200 ML BAG IV SCH (16:15)
[2023-09-27] MEDS: cefOXitin 2,000 MG in DEXTROSE 5 % MINI-B 50 ML IV ONE (18:10)
[2023-09-27] MEDS: LACTATED RINGER'S 1,000 ML IV SCH (20:23)
[2023-09-27] MEDS: cefOXitin 2,000 MG in DEXTROSE 5 % MINI-B 50 ML IV SCH (23:48)
--- NOTE | 2023-09-28 09:10 | Surgery Progress Note ---
Date of Service September 28, 2023 Assessment & Plan (1) Acute cholecystitis: Plan: Pt here w/ concern for acute cholecystitis, + stones Vitals stable RUQ ttp to deep palpation Continue IVF, NPO, IV abx Will plan on lap astrid in the OR today with Dr. Moore Admission and Anticipated Discharge Date Admission Date: September 27, 2023 Supervising Physician Co-Signing Physician Notes I personally saw and evaluated the patient with Margaux Andrew PA-C and agree with the assessment and plan. 38 yo female with acute cholecystitis Her CT, US results and images were personally viewed and interpreted by myself She has a thickened GB consistent with acute cholecystitis Will plan on laparoscopic cholecystectomy, possible open, possible IOC Consent was obtained, risks discussed including bleeding, infection, bile leak, ductal injury I provided more than 50% of the time coordinating care with the patient, reviewing images/labs, obtaining consent Subjective Patient says she feels tired and bloated. Physical Exam Physical Exam: awake/alert, no distress Respiratory: normal respiratory effort Gastrointestinal (Abdomen): Inspection/Auscultation: abdomen not distended Percussion/Palpation: + abdomen tender (RUQ) and abdomen soft Results & Data Vital Signs (Past 12 Hours) Vital Signs Temp Pulse Resp BP Pulse Ox O2 Del Method 09/28/23 07:16 97.9 F 67 16 125/84 95 Room Air PG Care Time/CCT Total # of Minutes Spent Total Time Spent with Patient: Total time spent is greater than 50% in coordination of care (as documented) at patient's floor/unit and/or counseling patient: Coding Level of Care Code 34816 SUB INP/OBS CARE 25MIN Diagnoses Acute cholecystitis K81.0
[2023-09-28] MEDS: LACTATED RINGER'S 1,000 ML IV SCH ×2 (11:16→15:35)
--- NOTE | 2023-09-28 11:29 | Anesthesiology Consultation ---
Date of Service September 28, 2023 Assessment & Plan (1) Encounter for pre-operative examination: Chart Review Chart Review: Acceptable Risk for Surgery History Surgery Operation Date: 09/28/23 08:10 Proposed Procedures p Laparoscopic Cholecystectomy, Possible Open - Devyn Moore, Operation Date: 09/28/23 12:00 Proposed Procedures p Laparoscopic Cholecystectomy with Cholangiogram, possible open - Zacharaih Jacques MD, FACS Height/Weight Height: 5 ft 4 in Weight: 118.4 kg Allergies Allergy/AdvReac Type Severity Reaction Status Date / Time bee venom protein (honey bee) Allergy Severe THROAT Verified 09/27/23 12:59 SWELLS,MOUTH cat dander Allergy Severe EYES AND Verified 09/27/23 12:59 THROAT SWELLS dog dander Allergy Severe EYES AND Verified 09/27/23 12:59 THROAT SWELLS mold Allergy Severe EYES AND Verified 09/27/23 12:59 THROAT SWELLS moxifloxacin Allergy Severe THROAT Verified 09/27/23 12:59 SWELLING sulfamethoxazole Allergy Severe THROAT Verified 09/27/23 12:59 SWELLS trimethoprim Allergy Severe THROAT Verified 09/27/23 12:59 SWELLS amoxicillin Allergy Intermediate hives Verified 09/27/23 12:59 Penicillins Allergy Intermediate HIVES Verified 09/27/23 12:59 Dust Mite Extract Allergy Intermediate STUFFY NOSE Uncoded 09/27/23 12:59 Medications Home Medications Medication Instructions Recorded Confirmed Last Taken albuterol sulfate 90 mcg/actuation 2 inh inhalation Q4 PRN SHORT OF 02/03/19 09/27/23 Unknown breath activated powder BREATH inhaler,sensor levothyroxine 200 mcg tablet 200 mcg PO QAM 02/03/19 09/27/23 09/26/23 hydrochlorothiazide 25 mg tablet 25 mg PO QAM 12/15/22 09/27/23 09/26/23 losartan 50 mg tablet 50 mg PO QAM 12/15/22 09/27/23 09/26/23 cyclobenzaprine 10 mg tablet 10 mg PO TID PRN Muscle Spasm 09/09/23 09/27/23 Unknown cyclosporine 0.05 % eye drops in a 1 drp OPB DAILY 09/09/23 09/27/23 09/26/23 dropperette (Restasis) Active Medications Generic Name Dose Route Start Last Admin Trade Name Freq PRN Reason Stop Dose Admin Lactated Ringer's 1,000 mls @ 125 mls/hr 09/27/23 16:15 09/28/23 04:35 Lr IV 10/27/23 16:14 125 mls/hr .Q8H VIDHYA Administration Cefoxitin Sodium 2,000 mg/ 50 mls @ 120 mls/hr 09/27/23 23:00 09/28/23 11:16 Dextrose IV 10/07/23 22:59 120 mls/hr Q6H VIDHYA Administration Lactated Ringer's 1,000 mls @ 0 mls/hr 09/28/23 11:15 09/28/23 11:16 Lr IV 10/28/23 11:14 15 mls/hr .Q0M VIDHYA Administration KVO NPO Date Last Intake of Fluids: 09/27/23 Time Last Intake of Fluids: 06:00 Date Last Intake of Solids: 09/26/23 Time Last Intake of Solids: 21:00 Past Medical History Medical History Morbid obesity Hypertension Degenerative disc disease Urinary, incontinence, stress female GERD (gastroesophageal reflux disease) Hx of Graves' disease s/p radioactive iodine/now hypothyroid on levothyroxine Hypothyroidism Anemia Anxiety and depression Restless leg syndrome Hx of migraines Chronic obstructive pulmonary disease Past Family History Family History Other No significant family history Past Surgical History Surgical History History of laparoscopy History of carpal tunnel release R/L Hx of hand surgery R/L (cyst removed) Fusion of spine Lumbar (2 surgeries) History of esophagogastroduodenoscopy (EGD) H/O: hysterectomy Hx of radioactive iodine thyroid ablation History of tooth extraction History of tonsillectomy and adenoidectomy History of myringotomy Social History Smoking Status: Current every day smoker tobacco type: cigarettes Smoking cigarettes per day: pack per day Do You Dip or Chew Tobacco: No Hx Alcohol Use: No Hx Substance Use: No substance use type: does not use Physical Exam Vital Signs Last Vital Signs Temp 36.7 C 09/28/23 11:07 Pulse 86 09/28/23 11:07 Resp 18 09/28/23 11:07 BP 125/84 09/28/23 07:16 Pulse Ox 99 09/28/23 11:07 O2 Del Method Room Air 09/28/23 11:07 Testing Laboratory Results 09/27/23 09:45 09/27/23 09:45 Urine Color Yellow 09/27/23 09:50 Urine Appearance Cloudy (Clear) A 09/27/23 09:50 Urine pH 6.0 (4.5-7.5) 09/27/23 09:50 Ur Specific [place] 1.030 (1.000-1.030) 09/27/23 09:50 Urine Protein Trace (Negative) H 09/27/23 09:50 Urine Glucose (UA) Negative (Negative) 09/27/23 09:50 Urine Ketones Trace (Negative) H 09/27/23 09:50 Urine Nitrite Negative (Negative) 09/27/23 09:50 Ur Leukocyte Esterase Trace (Negative) H 09/27/23 09:50 Urine WBC (Auto) 0-5 /hpf (0-5) 09/27/23 09:50 Urine RBC (Auto) 0-2 /hpf (0-2) 09/27/23 09:50 U Hyaline Cast (Auto) 0-2 /lpf (0-2) 09/27/23 09:50 U Epithel Cells (Auto) 6-10 /hpf (0-2) H 09/27/23 09:50 Urine Bacteria (Auto) None Seen (None Seen) 09/27/23 09:50 Echocardiogram Date: 09/10/22 EF: 55-60 LV Function: normal Valvular Disease: + no significant valvular disease
[2023-09-28] MEDS ORDERED: PROMETHAZINE HCL 6.25 MG in SODIUM CHLORIDE 0.9% 50 ML IV PRN (11:32)
[2023-09-28] MEDS ORDERED: ATROPINE SULFATE 0.1 MG/ML 10ML SYR IV PRN (11:32)
[2023-09-28] MEDS ORDERED: ONDANSETRON INJ 2 MG/ML 2 ML VIAL IV PRN (11:32)
[2023-09-28] MEDS ORDERED: ALBUTEROL 0.083% NEBU SOLN 3 ML VIAL INH PRN (11:32)
[2023-09-28] MEDS ORDERED: MIDAZOLAM HCL 1 MG/ML 2ML VIAL ONE ×2 (11:36→12:13)
[2023-09-28] MEDS ORDERED: ONDANSETRON INJ 2 MG/ML 2 ML VIAL ONE (11:36)
[2023-09-28] MEDS ORDERED: PROPOFOL IV EMULSION 10 MG/ML 20 ML VIAL IV ONE (11:36)
[2023-09-28] MEDS ORDERED: DEXAMETHASONE SOD INJ 4 MG/ML VIAL ONE (11:36)
[2023-09-28] MEDS ORDERED: LIDOCAINE 2% 2 ML VIAL/AMP(20MG/ML) INFIL ONE (11:36)
[2023-09-28] MEDS ORDERED: fentaNYL citrate PF 100 MCG/2 ML VIAL ONE ×2 (11:36→13:17)
[2023-09-28] MEDS ORDERED: ROCURONIUM BROMIDE 10 MG/ML 5 ML VIAL IV ONE ×2 (11:38→13:15)
[2023-09-28] MEDS ORDERED: ACETAMINOPHEN 1000 MG/100 ML IV IV ONE (12:19)
[2023-09-28] MEDS ORDERED: GLYCOPYRROLATE 0.2 MG/ML VIAL ONE (13:47)
[2023-09-28] MEDS ORDERED: NEOSTIGMINE METHYLSULFATE 1 MG/ML 10ML VIAL ONE (13:47)
[2023-09-28] MEDS: BUPIVACAINE/EPINEPHRINE 0.25% 1:200,000 30 ML VIAL ONE (13:49)
[2023-09-28] MEDS ORDERED: ALBUTEROL HFA 8 GM INHALER INH ONE (13:52)
--- NOTE | 2023-09-28 13:59 | Post Operative Brief Note ---
PG Immediate Post Op with CF Date of Surgery September 28, 2023 Pre & Post Diagnosis Pre-op diagnosis: Acute cholecystitits Post-op diagnosis: Acute cholecystitis I identified the patient and participated in the time-out.: Yes Procedure Operation Date: 09/28/23 12:00 Laparoscopic cholecystectomy Surgeon Devyn Moore DO Spa Attendant Margaux Andrew PA-C Estimated Blood Loss 10 Findings Consistent with Post-Op Diagnosis Specimens Specimen Description: A: Gallbladder and Contents Anesthesia Type General Complications none Disposition Disposition: Recovery Room
--- NOTE | 2023-09-28 13:59 | Operative Report ---
PG Post Operative Report Pre & Post Diagnosis Pre-op diagnosis: Acute cholecystitis Post-op diagnosis: Acute cholecystitis I identified the patient and participated in the time-out.: Yes Procedure Operation Date: 09/28/23 12:00 Laparoscopic cholecystectomy Surgeon Devyn Moore DO Front End Assistant Margaux Andrew PA-C Estimated Blood Loss 10 Findings Consistent with Post-Op Diagnosis Fluids see anesthesia record Specimens Gallbladder to pathology Drains None Anesthesia Type General Complications none Disposition Disposition: Recovery Room Indications 38 yo female with acute cholecystitis Description of Procedure The patient was brought to the operating room and placed in the supine position with both arms extended. At this time she underwent general endotracheal anesthesia without any problems. She was given appropriate pre-operative antibiotics. Her abdomen prepped and draped in the usual sterile fashion. A timeout was called, the procedure was verified as Laparoscopic cholecystectomy, possible open, possible intra-operative cholangiogram. Surgical, nursing and anesthesia teams agreed and the procedure was begun. After injection of 0.25% Marcaine with epinephrine, a supraumbilical vertical incision was made and carried down to the fascia using S-retractors. The abdominal wall was then elevated with towel clamps and abdomen entered using the Veress needle confirming position using the saline drop test. Pneumoperitoneum was established. 5mm trocar was placed. Laparoscope was introduced. No injury from entry into the abdomen was visualized after inspection of the abdomen. Three further ports were placed under direct visualization. One 11mm in the subxiphoid region and two 5mm in the RUQ. At this time the abdomen was inspected and the gallbladder identified. The gallbladder fundus was grasped and retracted cephalad. The gallbladder infundibulum was then grasped and retracted laterally. The cystic duct and cystic artery were then identified and skeletonized. The critical view of safety was obtained. They were both then clipped twice proximally and once distally and then divided using scissors. The gallbladder was then taken off of the liver bed using electrocautery and placed in an endocatch bag and removed from the subxiphoid port. The liver bed was then inspected and no bile leak or bleeding was evident. The subxiphoid port was then closed using 0-Vicryl using the suture passer. The trocars were then removed under direct visualization and no bleeding was present. Abdomen was desufflated. The skin was then closed using 4-0 Monocryl in a subcuticular fashion. Surgical glue was applied. Needle and sponge counts were correct x 2. At this time the patient was awoken from anesthesia and extubated having remained stable throughout the entire case. The patient was then transported to PACU in stable condition. The physician talent assistant was present and scrubbed for the entire procedure. She was essential in positioning, prepping and draping the patient, retraction and exposure, driving the laparoscope, closure of the incisions and placement of the dressings. I attest to the content of the Intraoperative Record and any orders documented therein. Any exceptions are noted below.
[2023-09-28] MEDS: fentaNYL citrate PF 100 MCG/2 ML VIAL IV PRN (14:13)
[2023-09-28] MEDS: KETOROLAC 30 MG/ML VIAL IV PRN (14:23)
--- NOTE | 2023-09-28 14:55 | Anesthesiology Progress Note ---
Date of Service September 28, 2023 Anesthesia Post Procedure Vital Signs Vital Signs: Temp Pulse Pulse Resp BP Pulse Ox O2 Del Method 09/28/23 14:50 97.0 F L 58 L 18 130/79 96 Nasal Cannula 09/28/23 14:40 71 18 106/57 L 99 Nasal Cannula 09/28/23 14:30 61 15 110/67 95 Oxymask 09/28/23 14:20 57 L 12 115/73 98 Oxymask 09/28/23 14:11 97.2 F L 69 12 125/77 95 Oxymask 09/28/23 11:07 98.1 F 86 18 99 Room Air 09/28/23 07:16 97.9 F 67 16 125/84 95 Room Air 09/27/23 19:56 97.7 F 64 18 133/90 95 Room Air 09/27/23 18:48 97.7 F 64 18 133/90 95 Room Air 09/27/23 17:00 77 18 122/76 98 Room Air 09/27/23 15:00 72 20 134/76 98 Room Air O2 Flow Rate 09/28/23 14:50 2 09/28/23 14:40 2 09/28/23 14:30 4 09/28/23 14:20 415 09/28/23 14:11 15 09/28/23 11:07 09/28/23 07:16 09/27/23 19:56 09/27/23 18:48 09/27/23 17:00 09/27/23 15:00 Pain Intensity Abdomen: Pain Intensity: 6 Transfer of Care Handoff Completed per policy Notes Mental Status: alert / awake / arousable and participated in evaluation Patient Amnestic to Procedure: Yes Nausea / Vomiting: adequately controlled Pain: adequately controlled and improving with treatment Airway Patency, RR, SpO2: stable & adequate BP & HR: stable & adequate Hydration State: stable & adequate Anesthetic Complications: no major complications apparent and Pt Satisfied with anesthetic care
[2023-09-28] MEDS ORDERED: oxyCODONE HCL IR 5 MG TAB (IMMEDIATE RELEASE) PO PRN (15:17)
[2023-09-28] MEDS ORDERED: HYDROmorphone INJ 1 MG/ML SYRINGE IV PRN (15:17)
[2023-09-28] MEDS: HYDROmorphone INJ 0.5 MG/0.5 ML SYR IV PRN (16:34)
[2023-09-28] MEDS: ONDANSETRON INJ 2 MG/ML 2 ML VIAL IV PRN (16:35)
[2023-09-28] MEDS: oxyCODONE HCL IR 5 MG TAB (IMMEDIATE RELEASE) PO PRN (19:47)
[2023-09-28] MEDS: SODIUM CHLORIDE 0.65% NA SOLN 45 ML (OCEAN) ONE (23:38)
[2023-09-29] MEDS: LEVOTHYROXINE SODIUM 200 MCG TABLET PO SCH (05:47)
[2023-09-29] MEDS: ACETAMINOPHEN 325 MG TAB PO PRN (07:42)
--- NOTE | 2023-09-29 08:06 | Surgery Progress Note ---
Date of Service September 29, 2023 Assessment & Plan (1) Acute cholecystitis: Plan: POD#1 lap astrid labs this AM are pending. vitals stable tolerating clears, will adv as tolerates incisions c/d/i, some expected bruising note in upper abd eli incisionally ambulating and voiding if labs okay and diet tolerated anticipate dispo to home later today dispo instructions reviewed, f/u in office with dr. polanco in 2 weeks Admission and Anticipated Discharge Date Admission Date: September 27, 2023 Subjective Patient reports feeling better this AM than post op. Pain controlled with prn pain meds. Tolerating clears no nausea/vomiting. Walking the halls. Physical Exam Physical Exam: awake/alert, no distress Respiratory: normal respiratory effort Gastrointestinal (Abdomen): Inspection/Auscultation: + abdominal surgical incision (c/d/i); abdomen not distended Percussion/Palpation: + abdomen tender (expected eli incisional discomfort ) and abdomen soft some bruising noted in upper R abdomen eli incisonally Results & Data Vital Signs (Past 12 Hours) Vital Signs Temp Pulse Resp BP Pulse Ox O2 Del Method 09/29/23 07:33 98.4 F 53 L 18 129/87 95 Room Air 09/29/23 06:55 98.6 F 52 L 18 131/64 95 Room Air 09/29/23 03:34 98.2 F 83 18 135/82 95 Room Air 09/28/23 22:47 98.4 F 65 18 126/79 95 Room Air PG Care Time/CCT Total # of Minutes Spent Total Time Spent with Patient: Total time spent is greater than 50% in coordination of care (as documented) at patient's floor/unit and/or counseling patient: Coding Level of Care Code 05102 Post Operative Follow-Up Diagnoses Acute cholecystitis K81.0
[2023-09-29 08:16] LABS: Basophils # (auto) 0.03 K/uL (0.00-0.20); Basophils % (auto) 0.2 %; Eosinophils # (auto) 0.01 K/uL (0.00-0.50); Eosinophils % (auto) 0.1 %; Hematocrit (blood only) 37.9 % (37.0-47.0); Hemoglobin 12.5 g/dl (12.0-16.0); Immature Granulocytes # (auto) 0.09 K/uL (0.01-0.20); Immature Granulocytes % (auto) 0.6 %; Lymphocytes # (auto) 1.61 K/uL (1.20-3.40); Lymphocytes % (auto) 10.8 %; Mean Corpuscular Hemoglobin 29.8 pg (25.0-34.0); Mean Corpuscular Volume 90.2 fL (80.0-100.0); Mean Platelet Volume 9.1 fL (9.4-12.4); Monocytes # (auto) 0.73 K/uL (0.11-0.59); Monocytes % (auto) 4.9 %; Neutrophils # (auto) 12.47 K/uL (1.40-6.50); Neutrophils % (auto) 83.4 %; Platelet Count 306 K/uL (130-400); RDW Coefficient of Variation 13.5 % (11.5-14.5); RDW Standard Deviation 44.3 fL (36.4-46.3); White Blood Count 14.94 K/ul (4.8-10.8)
[2023-09-29 08:35] LABS: Albumin Globulin Ratio 1.3 (0.9-2); Albumin Level 3.7 gm/dl (3.4-5.0); BUN Creatinine Ratio 10.8 (10-20); Bilirubin,Total 0.3 mg/dl (0.2-1.0); Calcium 8.8 mg/dl (8.6-10.3); Creatinine Clr Calc Pharmacy 101.8 ml/min; Est GFR (African American) 89.1 ml/min; Est GFR (Non-African American) 76.9 ml/min; Globulin 2.9 gm/dl (2.5-4.0); Potassium 4.1 mmol/L (3.5-5.1); Total Protein 6.6 gm/dl (6.0-8.3)
--- NOTE | 2023-09-29 15:20 | Discharge Summary ---
Date of Service September 29, 2023 Admission HPI Per Admitting Provider This 38-year-old female here with her father and mother has had a 2-month history of abdominal pain and nausea with certain food intakes came to the emergency room today and found to have acute cholecystitis Principal Diagnosis acute cholecystitis Discharge Exam awake/alert, no distress Respiratory normal respiratory effort Cardiovascular Rate/Rhythm: regular rate Gastrointestinal (Abdomen) Inspection/Auscultation: + abdominal surgical incision (c/d/i); abdomen not distended Percussion/Palpation: + abdomen tender (expected eli incisional discomfort ) an d abdomen soft Discharge Data Allergies Allergy/AdvReac Type Severity Reaction Status Date / Time bee venom protein (honey bee) Allergy Severe THROAT Verified 09/27/23 12:59 SWELLS,MOUTH cat dander Allergy Severe EYES AND Verified 09/27/23 12:59 THROAT SWELLS dog dander Allergy Severe EYES AND Verified 09/27/23 12:59 THROAT SWELLS mold Allergy Severe EYES AND Verified 09/27/23 12:59 THROAT SWELLS moxifloxacin Allergy Severe THROAT Verified 09/27/23 12:59 SWELLING sulfamethoxazole Allergy Severe THROAT Verified 09/27/23 12:59 SWELLS trimethoprim Allergy Severe THROAT Verified 09/27/23 12:59 SWELLS amoxicillin Allergy Intermediate hives Verified 09/27/23 12:59 Penicillins Allergy Intermediate HIVES Verified 09/27/23 12:59 Dust Mite Extract Allergy Intermediate STUFFY NOSE Uncoded 09/27/23 12:59 Consultations 09/27/23 16:04 ED Decision to Admit Stat Procedures Performed Operation Date: 09/28/23 12:00 <No data on this case meets the specified criteria> Ordered Studies 09/27/23 09:31 CT abd pelvis IV con only Stat 09/27/23 11:34 US gallbladder Stat Hospital Course (1) Acute cholecystitis: This is a 38 yo female who presented to the [facility] ED on 09/27/23 with abdominal pain. Workup in the ED showed a WBC of 10.[address] of the abd/pelvis and also a RUQ U/S concerning for acute cholecystitis . The patient was tender to palpation in the RUQ. Patient made NPO with IVF and booked for the OR. On 09/28/23 the patient went to the OR with Dr. Moore for a laparoscopic cholecystectomy . The patient tolerated the procedure well, see operative report for full details. Post operatively the patient's diet was advanced, pain managed on prn meds, and incisions clean/dry/intact. On POD 1 the patient was deemed stable for discharge to home.She was given discharge instructions, return precautions and follow up recommendations. Total Time Total Time Spent Total Time Spent (In Minutes): 10 Discharge Plan Discharge Items Patient Disposition: Home - Self-Care Reason For Visit: ACUTE CHOLECYSTITIS Discharge Diagnosis: laparoscopic cholecystectomy Activity: Per Instructions section Lifting: No more than 10 pounds Bathing Comment: may shower starting 09/29/23; no soaking in tubs/pools x 2 weeks Exercise/Sports: Wait until after follow-up appointment Driving/Machine Use: no driving while taking narcotics for pain Non-emergency contact: Surgeon Call non-emergency contact if: you have any medication questions, your pain is not controlled, you have a fever, your temperature is above 101.5, your wound has increased redness, your wound has increased drainage and your wound pain has increased Follow-up/Referrals: Devyn Moore DO [Physician] - 10/06/23 2:45 pm (Please call to schedule follow up in clinic within 2 weeks ) Karla Yuen DO [Primary Care Provider] - Diet: Regular Addtl Attending Provider Instructions: You may remove your outer surgical dressings on 09/30/23. You will have small white bandages on underneath that are over your incisions. You may shower with these on. They will tend to fall off on their own within 7-10 days. You may purchase Tylenol and/or Ibuprofen over the counter if needed for additional pain control over the next few days. Take per manufacturers instructions Pending Studies at Discharge: Yes Studies:: surgical pathology Stand-Alone Forms: My [facility] [place], Smoking Cessation Medications and DC Order Prescriptions: New oxycodone 5 mg tablet 5 - 10 mg PO .[id number] PRN (Reason: pain, for initial therapy, max 6 tabs per day) Qty: 15 0RF ondansetron HCl 4 mg tablet 4 mg PO Q8H PRN (Reason: nausea and vomiting) Qty: 14 0RF Continued levothyroxine 200 mcg Tablet 200 mcg PO QAM albuterol sulfate 90 mcg/actuation Aero Powdr Breath Act W/Sensor 2 inh INHALATION Q4 PRN (Reason: SHORT OF BREATH) losartan 50 mg Tablet 50 mg PO QAM hydrochlorothiazide 25 mg Tablet 25 mg PO QAM cyclosporine [Restasis] 0.05 % dropperette 1 drp OPB DAILY cyclobenzaprine 10 mg tablet 10 mg PO TID PRN (Reason: Muscle Spasm) Discharge Orders: Discharge Order (Routine); Ordered 09/29/23 Ordered By: Diana Coyle Admission Data Admit Date/Time: 09/27/23 16:04 Attending Provider: Zachariah Jacques Admit Provider: Zachariah Jacques Primary Care Provider: Karla Yuen Other Providers: Zachariah Jacques Other Interventions: Discharge Summary Assessment (RN) Last Done: 09/29/23 12:32 Supervising Physician Co-Signing Physician Notes I personally saw and evaluated the patient with Magraux Andrew PA-C and agree with the assessment and plan. 38 yo female with acute cholecystitis Her CT, US results and images were personally viewed and interpreted by myself She has a thickened GB consistent with acute cholecystitis Will plan on laparoscopic cholecystectomy, possible open, possible IOC Consent was obtained, risks discussed including bleeding, infection, bile leak, ductal injury I provided more than 50% of the time coordinating care with the patient, reviewing images/labs, obtaining consent Coding Level of Care Code 96101 IN/OBS DISCH 30 MIN/LESS Diagnoses Acute cholecystitis K81.0
== END 2023-09-29 13:35 | disposition home or self-care (01) | DRG 418 ==
LOC: ED 09:06 → 3N 16:04

== ENCOUNTER 2024-05-17 01:36 | Inpatient (IN) ==
[2024-05-17] MEDS: NITROGLYCERIN SL 0.4 MG/TAB TAB SL STA (02:13)
[2024-05-17 02:24] LABS: Hematocrit (blood only) 41.7 % (37.0-47.0); Hemoglobin 13.9 g/dl (12.0-16.0); Mean Corpuscular Hemoglobin 30.4 pg (25.0-34.0); Mean Corpuscular Hgb Conc 33.3 g/dL (32.0-36.0); Mean Corpuscular Volume 91.2 fL (80.0-100.0); Mean Platelet Volume 8.9 fL (9.4-12.4); Platelet Count 405 K/uL (130-400); Red Blood Count 4.57 M/uL (4.20-5.40); White Blood Count 14.62 K/ul (4.8-10.8)
[2024-05-17 02:27] LABS: Alanine Aminotransferase 18 U/L (7-52); Albumin Globulin Ratio 1.3 (0.9-2); Albumin Level 4.4 gm/dl (3.4-5.0); Alkaline Phosphatase 120 U/L (34-104); Anion Gap 7 (3-11); Aspartate Aminotransferase 15 U/L (13-39); BUN Creatinine Ratio 8.9 (10-20); Bilirubin,Total 0.4 mg/dl (0.2-1.0); Blood Urea Nitrogen 10 mg/dl (6-23); Carbon Dioxide 27 mmol/L (21-32); Chloride 103 mmol/L (98-107); Creatinine Clr Calc Pharmacy 86.9 ml/min; Globulin 3.5 gm/dl (2.5-4.0); Glucose 112 mg/dl (70-99(Fasting)); Lipase 89 U/L (11-82); Potassium 3.6 mmol/L (3.5-5.1); Sodium 137 mmol/L (136-145); Total Protein 7.9 gm/dl (6.0-8.3)
[2024-05-17 02:32] LABS: Troponin I High Sensitivity < 2.3 pg/ml (0-14)
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
[2024-05-17 03:02] LABS: Basophils # (auto) 0.05 K/uL (0.00-0.20); Basophils % (auto) 0.3 %; Eosinophils # (auto) 0.01 K/uL (0.00-0.50); Eosinophils % (auto) 0.1 %; Immature Granulocytes # (auto) 0.12 K/uL (0.01-0.20); Immature Granulocytes % (auto) 0.8 %; Lymphocytes # (auto) 5.13 K/uL (1.20-3.40); Lymphocytes % (auto) 35.1 %; Monocytes # (auto) 0.84 K/uL (0.11-0.59); Monocytes % (auto) 5.7 %; Neutrophils # (auto) 8.47 K/uL (1.40-6.50); Polychromasia 1+
--- NOTE | 2024-05-17 03:09 | XRay Report ---
EXAM: XR chest 1V portable CLINICAL HISTORY: Chest pain, nonspecific TECHNIQUE: An X-ray image of the chest is obtained in AP projection. COMPARISON: 12/22/2022. FINDINGS: Pulmonary Parenchyma: Lungs are clear bilaterally. No evidence of consolidation, collapse, or focal opacities. No pulmonary nodules are identified. No evidence of pleural effusion or pleural thickening. Heart and Mediastinum: Cardic silhouette is increased likely projectional ( AP) No mediastinal widening or masses. No hilar or mediastinal lymphadenopathy. Bony Thorax: Bony thorax appears intact without fractures or deformities. Soft Tissues: Soft tissues overlying the chest wall are unremarkable. IMPRESSION: Normal chest X-ray. No acute cardiopulmonary abnormalities are identified.Stable Electronically signed by Ozzy Stapleton 05-17-2024 03:08 AM
[2024-05-17] MEDS: ASPIRIN CHEW 324 MG PO STA (03:13)
[2024-05-17] MEDS: diphenhydrAMINE Capsule 25 MG CAP PO ONE (06:36)
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
--- OUTSIDE RECORDS SUMMARY | 2024-05-17 07:48 | External Medical Summary | Summary of Care ---
Author Name Unknown Organization [facility] Address [address] [facility] [address] Phone [phone] Care Team Providers Care Hog Raiser Name Role Phone Daniele Howard Primary Care Provider [phone] Reason for Visit * Reason Comments Follow Up Knee Pain Right kneeWas aspira tristin 04/12/24 Encounter Details Date Type Department Care Team (Latest Contact Info) Description 04/20/2024 1:45 PM EST Office Visit Orthopaedics, Stephen Chau [address] [place] [address] Byron Pate, [address] [place] [address] Primary osteoarthritis of right knee* Allergies Active Allergy Reactions Criticality Noted Date Comments Amoxicillin 02/05/2001 Hives Moxifloxacin Hcl In Nacl Edema airway High 11/18/2010 [place] like her throat was closing off Bactrim [...] as of this encounter (statuses as of 04/20/2024) Medications NEBULIZER COMPRESSOR MISCIndications:Ac [place] sinusitis Use as directed 1 Each 1 10/11/19 13 Active loratadine (CLARITIN) 10 MG TabletIndications: Allergic rhinitis, unspecified allergic rhinitis trigger, unspecified rhinitis seasonality Take 1 Tab by mouth daily. 30 Tab 5 05/26/19 17 Active EpiPen 2-Robert 0.3 MG/0.3ML Injection Solution Auto-injectorIndic ations:Allergy to bee sting For a severe reaction: Place orange end against the outer thigh, press firmly, hold in place for 10 seconds and go to the Emergency room. 2 Each 04/08/19 21 Active Fluticasone-Salmet dorota 100-50 MCG/DOSE Inhalation Aerosol Powder Breath Activated (Advair Diskus)Indications :COPD, group B, by GOLD 2017 classification ([facility]) Inhale 1 Puff by mouth 2 times a day. 60 Each 3 09/15/19 21 Active Additional Information Patient not taking.Reported on 10/21/2023 Albuterol Sulfate (2.5 MG/3ML) 0.083% Inhalation Nebulization Solution (Proventil)Indicat ions:COPD, group B, by GOLD 2017 classification ([facility]) Inhale 1 Vial via nebulizer every 4 hours as needed for Wheezing. 60 mL 1 09/15/19 21 Active Neomycin-Polymyxin -HC 3.5-50042-8 Otic Solution Administer into the left ear 4 Drops in the morning AND 4 Drops at noon AND 4 Drops before bedtime. to affected ear, for 10 days.. 10 mL 5 11/08/19 22 Active Terbinafine HCl 1 % External Cream (LamISIL AT ATHLETE'S FOOT)Indications:T inea pedis of both feet Apply topically to affected area 2 times a day. Apply to both feet for 8 weeks 30 g 1 07/30/19 23 Active Cyclobenzaprine HCl 10 MG Oral Tablet (Flexeril)Indicati ons:Fibromyalgia Take 1 Tablet by mouth 3 times a day as needed for Muscle spasms. 90 Tablet 03/13/19 24 Active Restasis 0.05 % Ophthalmic Emulsion INSTILL 1 DROP INTO EACH EYE TWICE DAILY 03/12/19 24 Active Lidocaine Viscous HCl 2 % Mouth/Throat SolutionIndication s:Tooth pain Apply small amount to tender tooth and gums every 4hrs as needed for pain. 100 mL 1 05/05/19 24 Active hydroCHLOROthiazid e 25 MG Oral Tablet (Hydrodiuril)Indic ations:HTN, goal below 130/80 Take 1 Tablet by mouth in the morning. 90 Tablet 07/06/19 24 Active Losartan Potassium 50 MG Oral Tablet (Cozaar)Indication s:HTN, goal below 130/80 Take 1 Tablet by mouth in the morning. 90 Tablet 3 07/06/19 24 Active Ketoconazole 2 % External Cream Apply topically to both feet twice daily 30 g 2 07/15/19 24 Active Levothyroxine Sodium 200 MCG Oral Tablet (Levoxyl) Take 1 tablet by mouth daily (at least 30 min prior to breakfast or other meds) 90 Tablet 1 08/26/19 24 Active Albuterol Sulfate HFA 108 (90 Base) MCG/ACT Inhalation Aerosol SolutionIndication s:Wheezing,COPD, group B, by GOLD 2017 classification ([facility]) inhale 2 puffs by mouth and INTO THE LUNGS every 4 hours if needed for SHORTNESS OF BREATH 18 g 1 01/06/20 24 Active Fluticasone-Salmet dorota 100-50 MCG/ACT Inhalation Aerosol Powder Breath Activated (Advair Diskus)Indications :COPD, group B, by GOLD 2017 classification ([facility]) Inhale 1 Puff by mouth in the morning and 1 Puff before bedtime. 60 Each 3 01/06/20 24 Active methylPREDNISolone 4 MG Oral Tablet Therapy Pack (Medrol Dosepack) follow package directions 21 Tablet 1 02/01/20 24 Active Hospital, Clinic, or Other Facility Administered Medication Ordered Dose Route Frequency Start Date End Date Status lidocaine 1% 1 mL - triamcinolone acetonide 40 mg/mL 1 mL inj 2 mLIndications:Primary osteoarthritis of right knee 2 mL IJ ONCE 04/20/2024 04/20/2024 Ended lidocaine 1 % inj 50 mgIndications:Primary osteoarthritis of right knee 50 mg PC ONCE 04/20/2024 04/20/2024 Ended documented as of this encounter (statuses as of 04/20/2024) Active Problems Problem Noted Date Diagnosed Date Body mass index (BMI) of 40.0 to 44.9 in adult 0 11/09/2023 Overview: Per Obesity protocol - Per Obesity protocol - Per Obesity protocol - Per Obesity protocol - Graves' disease without crisis 08/26/2023 Acute midline low back pain with bilateral sciat ica 03/13/2023 Atrioventricular block, first degree 11/06/2020 COPD, group B, by GOLD 2017 classification 12/11 Overview: Per COPD GOLD Classification HTN, goal below 130/80 02/08/2019 Chronic bilateral low back pain 06/22/2018 S/P lumbar microdiscectomy 08/10/2014 Overview (08/10/2014): L4-L5, L5-S1 Dr Vieira 04/2014 GERD (gastroesophageal reflux disease) 4 Tobacco use disorder 09/10/2011 Hypothyroidism 08/19/2011 Overview (08/28/2022): Hx graves disease, radiation as a child documented as of this encounter (statuses as of 04/20/2024) Resolved Problems Problem Noted Date Diagnosed Date Resolved Date Body mass index (BMI) of 45. 0 to 49.9 in adult 05/12/2022 11/12/2023 Overview: Per Obesity protocol - Per Obesity [...] laparoscopic ass isted vaginal hysterectomy 08/10/2014 04/07/2020 Overview (08/10/2014): Robotic - Dr. Fournier - 06/2014 Kidney [...] NO CRISIS 05/12/199707/2020 Viral warts 05/12/1997 05/10/2018 Overview (12/01/2016): ICD-10 update of inactive term documented as of this encounter (statuses as of 04/20/2024) Immunizations Name Administration Dates Next Due Diptheria/Tetanus (Adult) 10/21/1994 Hepatitis B Vaccine 05/20/1995,11/20/1994,1994 MMR - Measles/Mumps/Rubella Vaccine 06/27/1994 PPD 11/15/1999 Pneumococcal Conjugate Vacci ne, 20-valent ([id number]) 10/21/2023 Pneumococcal Polysaccharide PPV23 (Pneumovax) 03/19/2017 Seasonal Influenza Vac., MDV , IM, 0.5 mL (Fluzone) 01/17/2013 TDAP (age 10 and older)(Boostrix) 12/09/2019,11/2018 TDAP, Age 7 and older, IM (Adacel) 01/09/2009 documented as of this encounter Social History Tobacco Use Types Packs/Day Years Used Date Smoking Tobacco: Every Day Cigarettes 1 15 Smokeless Tobacco: Never Comments:started age 13 Alcohol Use Standard Drinks/Week Comments No 0 (1 standard drink = 0.6 oz pur e alcohol) PHQ-2 Answer Date Recorded PHQ Adult Total Score 0 01/06/2024 Hunger Vital Sign Answer Date Recorded Worried About Running Out of Food in the Last Ye ar Never true 01/07/2019 Ran Out of Food in the Last Year Never true 01/07/2019 Comments No Sex and Gender Information Value Date Recorded Sex Assigned at Female 04/10/2019 11:05 AM EST Legal Sex Female 5:58 AM EST Gender Identity Female 04/10/2019 11:05 AM EST Sexual Orientation Choose not to disclose 2019 11:05 AM EST 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 Not on file Not on file Not on file documented as of this encounter Last Filed Vital Signs Vital Sign Reading Time Taken Comments Blood Pressure - - Pulse - - Temperature 36.3 C (97.3 F) 04/20/2024 2:00 PM ES T Respiratory Rate - - Oxygen Saturation - - Inhaled Oxygen Concentration - - Weight - - Height - - Body Mass Index - - documented in this encounter Progress Notes * Byron Pate Mik Dima, DO - 04/20/2024 2:24 PM EST Patient Name: Sachi Miller CHIEF COMPLAINT: Chief Complaint Patient presents with Follow Up Knee Pain Right knee Was aspirated 04/12/24 HISTORY OF PRESENT ILLNESS: This is a 38 year old female seen in clinic today for right knee pain. Patient recently underwent right knee aspiration on 04/12/2024. She states that she did well for several days however notes increase in her pain with a sensation in his swelling into her right knee. Denies any known acute traumatic event. Past Medical History: Diagnosis Date Cervical strain [...] Toxic diffuse goiter Treated radioiodine Dr. Reilly Past Surgical History: Procedure Laterality Date CARPAL TUNNEL SURGERY 09/02/11 left/right CREATE EARDRUM OPENING,GEN'L ANESTH Bilateral 07/15/2018 TYMPANOSTOMY INSERTION TUBE GENERAL ANESTHESIA performed by Frank Landin DO at OR [facility] D&C AFTER DELIVERY EGD, FLEXIBLE, DIAGNOSTIC 02/08/2013 UPPER GI ENDOSCOPY DIAGNOSTIC performed by Isac Larios MD at ENDOSCOPY [facility] GANGLION CYSTS EDU left hand SUPERINTENDENT AUTOMOTIVE PAP SCREEN 10/28/11 WNL, -Raquet INCISION OF [...] performed by Lupillo Burr DO at OR [facility] SPINE SURGERY PROCEDURE NEC 2014 SPINE SURGERY PROCEDURE NEC 2016 Family History Problem Relation Name Age of [...] Breast Cancer Other Thyroid Disorder Other Cousin Social History Social History Narrative [facility] INFORMATION ENVIRONMENTAL HISTORY: Type of Home: [...] by: Josh Hamilton MD 09/10/2011 [employer] 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 General: generally well-nourished and in no acute distress HEENT: normocephalic, atraumatic, EOMI, sclera anicteric. Psych: mood and affect normal , cooperative Card: Peripheral pulses: normal in affected extremity (s) Resp: equal chest rise, non-tachypneic, non-labored breathing Skin: no rash, normal Neuro: Coordination: normal The patient has a normal gait. The right knee is tender over the medial and lateral joint line. Divya's test is negative. There is 1+ effusion. ROM is from 0 to 100 degrees. There is no tenderness over the patellar tendon. There is no patellar crepitus. There is no pain with provocative patellofemoral maneuvers. J sign: negative Beronica test is negative Anterior drawer negative Posterior drawer negative Varus stress: negative without pain Valgus stress: negative without pain There is 5/5 quad/hamstring Sensation: Intact L3-S1 Foot warm and well perfused Bilateral hips: No pain with log roll No tenderness to palpation of greater trochanters IMAGING: XRAYS: Right knee WB AP/lateral/Padilla/Jarratt performed 04/12/2024 demonstrate per my interpretation no acute osseous abnormality with moderate osteoarthritis noted ASSESSMENT: Sachi is a 38 year old female with right knee effusion. PLAN: Patient seen and examined in clinic today. I personally reviewed the patient's imaging studies withthe patient during today's visit. Various treatment options were discussed. Patient elects to proceed with repeat aspiration today. See procedure note below. She may follow up with me as needed. Patient expressed understanding and was in agreement with today's treatment plan. Procedure note: Prior to injection, a time out was called to confirm the administration of appropriate medicine, patient name, procedure and confirm to the best of our ability and knowledge the presence of any necessary risks and benefits. Patient verbalizes understanding. Consent obtained. Sterile techinique applied. Skin sterilized with alcohol swab and chlorhexidine. The right knee wasaspirated using 1.5 inch, 18 gauge needle. 20 mL of thin straw-colored fluid was withdrawn. 1 mL of1% lidocaine and 1 mL of Kenalog was injected into the right knee. Skin cleansed with alcohol and Band-Aid placed. Patient tolerated procedure with no significant bleeding or adverse reaction. Patient instructed to call or return to clinic for fever or warmth and redness at injection site for potential infection. Patient also advised as to potential for increased pain and redness at injection site which should be treated with ice and resolve within 24 hours. There are no Patient Instructions on file for this visit. Byron Pate DO [facility]opaedics [facility] [address] [facility] [facility] [address] Orthopedic Sports Medicine Surgery 04/20/24 This chart was completed in part utilizing [employer] Speech Voice Recognition Software. Grammatical errors, random word insertions, pronoun errors, and incomplete sentences are an occasional consequence of this system due to software limitations, ambient noise, and hardware issues. Any formal questions or concerns about the content, text, or information contained within the body of this dictation should be directly addressed to the provider for clarification. documented in this encounter Nursing Notes * Hilary Chau LPN - 04/20/2024 2:01 PM EST Chief Complaint Patient presents with Follow Up Knee Pain Right knee Was aspirated 04/12/24 documented in this encounter Plan of Treatment Health Maintenance Due Date Last Done Comments DISCUSS TOBACCO CESSATION (REFER TO SMARTSET #1326) 1983 HIV Screening 06/11/1998 Albumin/Creatinine Ratio 06/11/2001 Alpha-1 Antitrypsin 06/11/2001 Hepatitis C Screening 06/11/2001 COVID-19 Vaccine ( season) 2023 Influenza Vaccine (FLU shot) (#1) 2023 01/17/2013 GFR 05/03/2024 05/04/2023, 08/30, 11/06/2020, Additional history exists TSH 07/05/2024 07/06/2023, 03/0 06/2023, 11/06/2020, Additional history exists Mammogram 07/14/2024 07/15/2023 O2 ASSESSMENT COMPLETED IN PAST YEAR FOR COPD 11/23/2024 11/24/2023 Depression Screening 01/05/2025 01/06/2024 Lipid Panel 05/16/2025 05/16/2020, 05/31, 09/19/2011 Diabetes Screening 05/03/2026 05/04/2023, 0 09/09/2022, 11/06/2020, Additional history exists DTap/Tdap Vaccines (5 - Td or Tdap) 12/08/2029 12/09/2019, 02/08/2019, 01/09/2009, Additional history exists Hepatitis B Vaccine Completed 05/20/1995, 11/20/1994, 10/21/1994 Pneumococcal Vaccine: Pediatrics (0 to 5 Years) and At-Risk Patients (6 to 18 Years and 19+ Years) Completed 10/21/2023, 03/19/2017 HPV (Gardasil) Vaccine Aged Out No lo nger eligible based on patient's age to complete this topic MENINGOCOCCAL (MENACTRA/MENVEO) Aged Out No longer eligible based on patient's age to complete this topic Meningitis B Vaccine (Bexsero/Trumemba) Aged Out No longer eligible based on patient's age to complete this topic documented as of this encounter Medical Devices Implanted Type Area Millinery Copyist Device Identifier Shelf Expiration Date Model / Serial / Lot Silicone T-Tube [id number] - [id number] Implanted:Qty: 1 on 07/15/2018 by Frank Landin DO at [facility] Left: Ear [employer] 07/31/2027 [id number] / / [id number] Silicone T-Tube [id number] - [id number] Implanted:Qty: 1 on 07/15/2018 by Frank Landin DO at OR [facility] Right: Ear [employer] 07/31/2027 [id number] / / [id number] documented as of this encounter Visit Diagnoses Diagnosis Primary osteoarthritis of right knee- Primary Primary localized osteoarthrosis, lower leg documented in this encounter Administered Medications Inactive Administered Medications - up to 3 most recent administrations Medication Order MAR Action Action Date Dose Rate Site lidocaine 1 % inj 50 mg 50 mg (5 mL), Percutaneous, ONCE, On Thu04/20/24 at 1500, For 1 doseIndications:Primary osteoarthritis of right knee Given 04/20/2024 2:37 PM EST 50 mg Knee Right lidocaine 1% 1 mL - triamcinolone acetonide 40 mg/mL 1 mL inj 2 mL 2 mL, Injection, ONCE, On Thu04/20/24 at 1500, For 1 dose, Lidocaine 1% 1mL Triamcinolone Acetonide 40 mg/mL 1 mL (Final concentration = 20 mg/mL) REFRIGERATE and SHAKE WELLIndications:Primary osteoarthritis of right knee Given 04/20/2024 2:36 PM EST 2 mL Knee Right documented in this encounter Care Teams Hog Raiser Relationship Specialty Start Date End Date Daniele Howard CRNP [address] [facility] [place] [address] PCP - General Nurse Practitioner 09/13/23 documented as of this encounter
--- OUTSIDE RECORDS SUMMARY | 2024-05-17 07:48 | External Medical Summary | Summary of Care ---
Author Name Unknown Organization [facility] Address [address] [facility] [address] Phone [phone] Care Team Providers Care Sales Planning Coordinator Name Role Phone Daniele Howard Primary Care Provider [phone] Reason for Visit * Reason Comments NEW PATIENT New pt presents for R knee aspiration Encounter Details Date Type Department Care Team (Latest Contact Info) Description 04/12/2024 11:30 AM EST Office Visit Orthopaedics [facility] [address] [place] [phone] Byron Pate DO [address] [place] [address] Primary osteoarthritis of right knee* Allergies Active Allergy Reactions Criticality Noted Date Comments Amoxicillin 02/05/2001 Hives Moxifloxacin Hcl In Nacl Edema airway High 11/18/2010 [place] like her throat was closing off Bactrim [...] as of this encounter (statuses as of 04/12/2024) Medications NEBULIZER COMPRESSOR MISCIndications:Ac [place] sinusitis Use as directed 1 Each 1 [...] :COPD, group B, by GOLD 2017 classification ([facility]) Inhale 1 Puff by mouth 2 times a day. 60 Each 3 09/15/19 21 Active Additional Information Patient not taking.Reported on 10/21/2023 Albuterol Sulfate (2.5 MG/3ML) 0.083% Inhalation Nebulization Solution (Proventil)Indicat ions:COPD, group B, by GOLD 2017 classification ([facility]) Inhale 1 Vial via nebulizer every 4 hours as needed for Wheezing. 60 mL 1 09/15/19 21 Active Neomycin-Polymyxin -HC 3.5-09648-6 Otic Solution Administer into the left ear [...] s:Wheezing,COPD, group B, by GOLD 2017 classification ([facility]) inhale 2 puffs by mouth and INTO THE LUNGS every 4 hours if needed for SHORTNESS OF BREATH 18 g 1 01/06/20 24 Active Fluticasone-Salmet dorota 100-50 MCG/ACT Inhalation Aerosol Powder Breath Activated (Advair Diskus)Indications :COPD, group B, by GOLD 2017 classification ([facility]) Inhale 1 Puff by mouth in the morning and 1 Puff before bedtime. 60 Each 3 01/06/20 24 Active methylPREDNISolone 4 MG Oral Tablet Therapy Pack (Medrol Dosepack) follow package directions 21 Tablet 1 02/01/20 24 Active documented as of this encounter (statuses as of 04/12/2024) Active Problems Problem Noted Date Diagnosed Date [...] as of this encounter (statuses as of 04/12/2024) Resolved Problems Problem Noted Date Diagnosed Date [...] as of this encounter (statuses as of 04/12/2024) Immunizations Name Administration Dates Next Due Pneumococcal Conjugate Vaccine, 20-valent (Prevn ar20) 10/21/2023 Pneumococcal Polysaccharide PPV23 (Pneumovax) Seasonal Influenza Vac., MDV, IM, 0.5 mL (Fluzon e) 01/17/2013 TDAP (age 10 and older)(Boostrix) 12/09/2019,11/2018 [...] as of this encounter Progress Notes * Byron Pate, - 04/12/2024 11:52 AM EST Patient Name: Sachi Miller CHIEF COMPLAINT: Chief Complaint Patient presents with NEW PATIENT New pt presents for R knee aspiration HISTORY OF PRESENT ILLNESS: This is a 38 year old female seen in clinic today for right knee pain. Patient states that she had a similar instance proximally 5 years ago which was treated successfully with aspiration and corticosteroid injection. She states she noted discomfort and a tight sensation with flexion last week. Denies any known acute traumatic event to her right lower extremity. Feels that her knee is quite swollen. Reports her pain in his 6 of the 10 today. Denies any fevers chills or cuts about her right knee. Past Medical History: Diagnosis Date Cervical strain [...] performed by Frank Landin DO at OR [facility] D&C AFTER DELIVERY EGD, FLEXIBLE, DIAGNOSTIC 02/08/2013 UPPER GI ENDOSCOPY DIAGNOSTIC performed by Isac Larios MD at ENDOSCOPY [facility] GANGLION CYSTS EDU left hand CARDIOLOGY CLINICAL NURSE SPECIALIST PAP SCREEN 10/28/11 WNL, -Raquet INCISION OF [...] JOINT performed by Lupillo Burr DO at [facility] SPINE SURGERY PROCEDURE NEC 2014 SPINE SURGERY PROCEDURE NEC 2017 Family History Problem Relation Name Age of [...] Cousin Social History Social History Narrative [facility] INFORMATION ENVIRONMENTAL HISTORY: Type of Home: Two [...] by: Josh Hamilton MD 09/10/2011 [employer] 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 Divya's test is negative. There is 2+ effusion. ROM is from 0 to 100 [...] greater trochanters IMAGING: XRAYS: Right knee WB AP/lateral/Padilla/Stollings performed 04/12/2024 demonstrate per my interpretation no acute osseous abnormality with moderate osteoarthritis noted ASSESSMENT: Sachi is a 38 year old female with right knee effusion. PLAN: Patient seen and examined in clinic today. I personally reviewed the patient's imaging studies withthe patient during today's visit. Various treatment options were discussed. Patient elects to proceed with aspiration today. See procedure note below. She may follow up with me as needed. Discussed with her that should effusion recur would consider repeat aspiration with corticosteroid administration. Patient expressed understanding and was in agreement [...] wasaspirated using 1.5 inch, 18 gauge needle. 60 mL of thin straw-colored fluid was withdrawn. Skin cleansed with alcohol and Band-Aid placed. Patient tolerated procedure with no significant bleeding oradverse reaction. Patient instructed to call or return to clinic for fever or warmth and redness at injection site for potential infection. Patient also advised as to potential for increased pain and redness at injection site which should be treated with ice and resolve within 24 hours. There are no Patient Instructions on file for this visit. Byron Pate, DO Orthopaedics [facility] [address] [place] [address] Orthopedic Sports Medicine Surgery 04/12/2024 11:53 AM This chart was completed in part utilizing [employer] Speech Voice Recognition Software. Grammatical errors, random [...] documented in this encounter Nursing Notes * Perico Stafford CMA - 04/12/2024 11:39 AM EST New pt presents for R knee aspiration Pt states pain 10 today in R knee Pt states very limited mobility and has pain when she weight bears - Perico Valencia CMA documented in this encounter Plan of Treatment Pending Results Name Type Priority Associated Diagnoses Date /Time XR KNEE 4 OR MORE VIEWS Medical Imaging Routine 04/12/2024 12:00 PM EST Health Maintenance Due Date Last Done Comments DISCUSS TOBACCO CESSATION (REFER TO SMARTSET #3292) 1983 HIV Screening 06/11/1998 Albumin/Creatinine Ratio 06/11/2001 [...] this encounter Medical Devices Implanted Type Area Armament Aircraft Mechanic Device Identifier Shelf Expiration Date Model / Serial / Lot Silicone T-Tube [id number] - [id number] Implanted:Qty: 1 on 07/15/2018 by Frank Landin DO at OR [facility] Left: Ear [employer] 07/31/2027 [id number] / / [id number] Silicone T-Tube [id number] - [id number] Implanted:Qty: 1 on 07/15/2018 by Frank Landin DO at OR [facility] Right: Ear [employer] 07/31/2027 [id number] / / [id number] documented as of this encounter Visit Diagnoses Diagnosis Primary osteoarthritis of right knee- Primary Primary localized osteoarthrosis, lower leg documented in this encounter Care Teams Sales Planning Coordinator Relationship Specialty Start Date End Date Daniele Howard CRNP [address] [place] [address] PCP - General Nurse Practitioner 09/13/23 documented as of this encounter
--- OUTSIDE RECORDS SUMMARY | 2024-05-17 07:48 | External Medical Summary | Summary of Care ---
Author Name Unknown Organization [facility] Address [address] [facility] [place] [address] Phone [phone] Care Team Providers Care Cupola Liner Name Role Phone Daniele Howard Primary Care Provider [phone] Encounter Details Date Type Department Care Team (Late st Contact Info) Description 03/21/2024 Population Health External Data Unspecified Department Allergies Active Allergy Reactions Criticality Noted Date Comments Amoxicillin 02/05/2001 Hives Moxifloxacin Hcl In Nacl Edema airway High 11/18/2010 [place] like her throat was closing off Bactrim [...] as of this encounter (statuses as of 03/21/2024) Medications NEBULIZER COMPRESSOR MISCIndications:Ac ángela sinusitis Use as directed 1 Each 1 [...] :COPD, group B, by GOLD 2017 classification ([facility]) Inhale 1 Puff by mouth 2 times a day. 60 Each 3 09/15/19 21 Active Additional Information Patient not taking.Reported on 10/21/2023 Albuterol Sulfate (2.5 MG/3ML) 0.083% Inhalation Nebulization Solution (Proventil)Indicat ions:COPD, group B, by GOLD 2017 classification ([facility]) Inhale 1 Vial via nebulizer every 4 hours as needed for Wheezing. 60 mL 1 09/15/19 21 Active Neomycin-Polymyxin -HC 3.5-19513-0 Otic Solution Administer into the left ear [...] s:Wheezing,COPD, group B, by GOLD 2017 classification ([facility]) inhale 2 puffs by mouth and INTO THE LUNGS every 4 hours if needed for SHORTNESS OF BREATH 18 g 1 01/06/20 24 Active Fluticasone-Salmet dorota 100-50 MCG/ACT Inhalation Aerosol Powder Breath Activated (Advair Diskus)Indications :COPD, group B, by GOLD 2017 classification ([facility]) Inhale 1 Puff by mouth in the morning and 1 Puff before bedtime. 60 Each 3 01/06/20 24 Active methylPREDNISolone 4 MG Oral Tablet Therapy Pack (Medrol Dosepack) follow package directions 21 Tablet 1 02/01/20 24 Active documented as of this encounter (statuses as of 03/21/2024) Active Problems Problem Noted Date Diagnosed Date [...] as of this encounter (statuses as of 03/21/2024) Resolved Problems Problem Noted Date Diagnosed Date [...] as of this encounter (statuses as of 03/21/2024) Immunizations Name Administration Dates Next Due Pneumococcal [...] as of this encounter Plan of Treatment Health Maintenance Due Date Last Done Comments DISCUSS TOBACCO CESSATION (REFER TO SMARTSET #3291) 1983 HIV Screening 06/11/1998 Albumin/Creatinine Ratio 06/11/2001 Alpha-1 Antitrypsin 06/11/2001 Hepatitis C Screening 06/11/2001 COVID-19 Vaccine ( season) 2023 Influenza Vaccine (FLU shot) (#1) 2023 01/17/2013 GFR 05/03/2024 05/04/2023, 07/03/2022, 11/06/2020, Additional history exists TSH 07/05/2024 07/06/2023, 03/0 06/2023, 11/06/2020, Additional history exists Mammogram 07/14/2024 07/15/2023 O2 ASSESSMENT COMPLETED IN PAST YEAR FOR COPD 11/23/2024 11/24/2023 Depression Screening 01/05/2025 01/06/2024 Lipid Panel 05/16/2025 05/16/2020, 04/03/2013, 09/19/2011 Diabetes Screening 05/03/2026 05/04/2023, 0 09/09/2022, [...] this encounter Medical Devices Implanted Type Area Assembler Installer General Device Identifier Shelf Expiration Date Model / Serial / Lot Silicone T-Tube [id number] - [id number] Implanted:Qty: 1 on 07/15/2018 by Frank Landin DO at OR [facility] Left: Ear [employer] 07/31/2027 [id number] / / [id number] Silicone T-Tube [id number] - [id number] Implanted:Qty: 1 on 07/15/2018 by Frank Landin DO at OR [facility] Right: Ear [employer] 07/31/2027 [id number] / / [id number] documented as of this encounter Care Teams Cupola Liner Relationship Specialty Start Date End Date Daniele Howard CRNP [address] [place] [address] PCP - General Nurse Practitioner 09/13/23 documented as of this encounter
--- OUTSIDE RECORDS SUMMARY | 2024-05-17 07:48 | External Medical Summary | Summary of Care ---
Author Name Unknown Organization [facility] Address [address] [facility] [address] Phone [phone] Care Team Providers Care Supervisor Nut Processing Name Role Phone Daniele Howard Primary Care Provider [phone] Reason for Visit * Reason Comments Follow Up Knee Pain Right kneeWas aspira tristin 04/12/24 Encounter Details Date Type Department Care Team (Latest Contact Info) Description 04/20/2024 1:45 PM EST Office Visit Orthopaedics, Stephen Chau [address] [place] [address] Byron Pate, [address] [place] [address] Primary osteoarthritis of right knee* Allergies Active Allergy Reactions Criticality Noted Date Comments Amoxicillin 02/05/2001 Hives Moxifloxacin Hcl In Nacl Edema airway High 11/18/2010 [place] like her throat was closing off Bactrim [...] as of 04/20/2024) Medications NEBULIZER COMPRESSOR MISCIndications:Ac mcgrath sinusitis Use as directed 1 Each 1 [...] :COPD, group B, by GOLD 2017 classification ([facility]) Inhale 1 Puff by mouth 2 times a day. 60 Each 3 09/15/19 21 Active Additional Information Patient not taking.Reported on 10/21/2023 Albuterol Sulfate (2.5 MG/3ML) 0.083% Inhalation Nebulization Solution (Proventil)Indicat ions:COPD, group B, by GOLD 2017 classification ([facility]) Inhale 1 Vial via nebulizer every 4 hours as needed for Wheezing. 60 mL 1 09/15/19 21 Active Neomycin-Polymyxin -HC 3.5-01855-6 Otic Solution Administer into the left ear [...] s:Wheezing,COPD, group B, by GOLD 2017 classification ([facility]) inhale 2 puffs by mouth and INTO THE LUNGS every 4 hours if needed for SHORTNESS OF BREATH 18 g 1 01/06/20 24 Active Fluticasone-Salmet dorota 100-50 MCG/ACT Inhalation Aerosol Powder Breath Activated (Advair Diskus)Indications :COPD, group B, by GOLD 2017 classification ([facility]) Inhale 1 Puff by mouth in [...] PPD 11/15/1999 Pneumococcal Conjugate Vacci ne, 20-valent ([id number]) 10/21/2023 Pneumococcal Polysaccharide PPV23 (Pneumovax) 03/19/2017 Seasonal [...] performed by Frank Landin DO at OR [facility] D&C AFTER DELIVERY EGD, FLEXIBLE, DIAGNOSTIC 02/08/2013 UPPER GI ENDOSCOPY DIAGNOSTIC performed by Isac Larios MD at ENDOSCOPY [facility] GANGLION CYSTS EDU left hand TIP FINISHER PAP SCREEN 10/28/11 WNL, -Raquet INCISION OF [...] performed by Lupillo Burr DO at OR 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 Byron Pate DO [facility] [address] [facility] [address] Orthopedic Sports Medicine Surgery 04/20/24 This chart was completed in part utilizing [employer] Speech Voice Recognition Software. Grammatical errors, random [...] Comments DISCUSS TOBACCO CESSATION (REFER TO SMARTSET #4185) 1983 HIV Screening 06/11/1998 Albumin/Creatinine Ratio 06/11/2001 [...] this encounter Medical Devices Implanted Type Area Sales Performance Manager Device Identifier Shelf Expiration Date Model / Serial / Lot Silicone T-Tube [id number] - [id number] Implanted:Qty: 1 on 07/15/2018 by Frank Landin DO at [facility] Left: Ear [employer] 07/31/2027 [id number] / / [id number] Silicone T-Tube [id number] - [id number] Implanted:Qty: 1 on 07/15/2018 by Frank Landin DO at [facility] Right: Ear [employer] 07/31/2027 [id number] / / [id number] documented as of this encounter Visit Diagnoses [...] Right documented in this encounter Care Teams Supervisor Nut Processing Relationship Specialty Start Date End Date Daniele Howard CRNP [address] [facility] [place] [address] PCP - General Nurse Practitioner 09/13/23 documented as of this encounter
--- OUTSIDE RECORDS SUMMARY | 2024-05-17 07:49 | External Medical Summary | Summary of Care ---
Author Name Unknown Organization [facility] Address [address] [facility] [place] [address] Phone [phone] Care Team Providers Care Cattle Rancher Name Role Phone Daniele Howard Primary Care Provider [phone] Reason for Visit * Reason Comments NEW PATIENT Pain R wrist * Evaluate & Treat - Unlimited Visits (Within 10 days (routine)) - Authorized Specialty Diagnoses / Procedures Referred By Anthony chandler Referred To Contact Orthopaedic Surgery / Orthopedics Diagnoses Right wrist pain Karla Yuen DO [address] [place] [address] Phone: tel: fax: Referral ID Status Reason Start Date Expiration Date Visits Requested Visits Authorized [id number] Authorized Specialty Services Required 01/06/[phone] Encounter Details Date Type Department Care Team (Late st Contact Info) Description 02/01/2024 10:00 AM EST Office Visit Orthopaedics [facility] [address] [place] [address] Jose Rosales MD [address] [place] [address] Tendinitis, de Quervain's*; Right wrist pain Allergies Active Allergy Reactions Criticality Noted Date Comments Amoxicillin 02/05/2001 Hives Moxifloxacin Hcl In Nacl Edema airway High 11/18/2010 [place] like her throat was closing off Bactrim [...] as of this encounter (statuses as of 02/01/2024) Medications NEBULIZER COMPRESSOR MISCIndications:Ac ángela sinusitis Use [...] :COPD, group B, by GOLD 2017 classification ([facility]) Inhale 1 Puff by mouth 2 times a day. 60 Each 3 09/15/19 21 Active Additional Information Patient not taking.Reported on 10/21/2023 Albuterol Sulfate (2.5 MG/3ML) 0.083% Inhalation Nebulization Solution (Proventil)Indicat ions:COPD, group B, by GOLD 2017 classification ([facility]) Inhale 1 Vial via nebulizer every 4 hours as needed for Wheezing. 60 mL 1 09/15/19 21 Active Neomycin-Polymyxin -HC 3.5-19194-6 Otic Solution Administer into the left ear [...] s:Wheezing,COPD, group B, by GOLD 2017 classification ([facility]) inhale 2 puffs by mouth and INTO THE LUNGS every 4 hours if needed for SHORTNESS OF BREATH 18 g 1 01/06/20 24 Active Fluticasone-Salmet dorota 100-50 MCG/ACT Inhalation Aerosol Powder Breath Activated (Advair Diskus)Indications :COPD, group B, by GOLD 2017 classification ([facility]) Inhale 1 Puff by mouth in the morning and 1 Puff before bedtime. 60 Each 3 01/06/20 24 Active methylPREDNISolone 4 MG Oral Tablet Therapy Pack (Medrol Dosepack) follow package directions 21 Tablet 1 02/01/20 24 Active documented as of this encounter (statuses as of 02/01/2024) Active Problems Problem Noted Date Diagnosed Date [...] as of this encounter (statuses as of 02/01/2024) Resolved Problems Problem Noted Date Diagnosed Date [...] as of this encounter (statuses as of 02/01/2024) Immunizations Name Administration Dates Next Due Pneumococcal [...] on file documented as of this encounter Patient Instructions * Patient Instructions* Jose Rosales MD - 02/01/2024 10:09 AM EST Try this medicine first before adding additional medicines: topical Voltaren gel (Diclofenac SodiumTopical Gel) which is over the counter up to 4 times per day Additional options: Tylenol (Acetaminophen) Regular Strength 325 mg (1-2 tablets up to 4 times per day)and/or Ibuprofen 200mg (1-3 tab up to 4 times per day) with food (No other over the counter NSAID medications) I recommend taking them at the same time but they can also be alternated. Use the lowest amount of medication as infrequently as possible to control your pain at a tolerablelevel Do not take Tylenol if drinking more than 3 alcohol drinks daily documented in this encounter Progress Notes * Jose Rosales MD - 02/01/2024 9:44 AM EST Sachi Miller [id number] Sachi Miller is a 38 year old female who presents for consultation to [facility] Sports Medicine [facility] for right wrist injury/pain. Consult requested by Karla Yuen DO. Sachi Miller is here unaccompanied Handedness: right History: Severity: reviewed and agree with Nursing Notes for HPI elements History - NEW Pt R wrist pain x 2 mos Xray 11/24/23 Pt c/o / pain today Pt is RHD Pt is not working at this time Pt stated she has hx of CTS and release on R hand PCP ordered a brace that Pt stated she wore x 2 wks but claimed it did not help resolve pain ROS: ROS per HPI otherwise non-contributory Past Medical History: Diagnosis Date Cervical strain [...] Toxic diffuse goiter Treated radioiodine Dr. 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 a week Social Needs Financial Resource Strain: Not on file Food Insecurity: No Food Insecurity (01/07/2019) Hunger Vital Sign Worried About Running Out of Food in the Last Year: Never true Ran Out of Food in the Last Year: Never true Transportation Needs: Not on file Social Connections: Not on file Housing Stability: Not on file Physical Exam Constitutional: Generally well-nourished and in no acute distress Psychiatric: Mood and Affect normal Eyes: EOMI Respiratory: Normal respiratory effort with regular rate and rhythm Cardiovascular: No edema in the affected extremity(s) Right wrist examination Inspection: Enlargement of the 1st dorsal compartment Alignment: Normal Bilateral Effusion: Negative Bilateral Palpation: No significant tenderness of the 1st CMC joint, tenderness of the 1st dorsal compartmentat the level of the radial styloid Positive [facility]: 11/24/2023: Three views of right wrist. FINDINGS Ulnar positive variance. Moderate 1st CMC joint osteoarthritis with marginal osteophytes and joint space narrowing. No acute fracture. Soft tissue is unremarkable. IMPRESSION IMPRESSION First CMC joint osteoarthritis Assessment and Plan: 1) chronic right wrist pain suspect de Quervain tenosynovitis I do not think her 1st CMC DJD is symptomatic for her at this time Discussed treatment options including thumb spica brace, physical therapy, home exercises, steroid injection, surgical referral for lack of improvement with all those options Plan as of today: Thumb spica brace which she is to use for activity and eventually wean away from over the next several weeks Home exercise program Medrol Dosepak with a refill Try this medicine first before adding additional medicines: topical Voltaren gel (Diclofenac SodiumTopical Gel) which is over the counter up to 4 times per day Additional options: Tylenol (Acetaminophen) Regular Strength 325 mg (1-2 tablets up to 4 times per day)and/or Ibuprofen 200mg (1-3 tab up to 4 times per day) with food (No other over the counter NSAID medications) I recommend taking them at the same time but they can also be alternated. Use the lowest amount of medication as infrequently as possible to control your pain at a tolerablelevel Do not take Tylenol if drinking more than 3 alcohol drinks daily Follow-up in 4-6 weeks Note I did perform limited diagnostic ultrasound in the air the patient had concern for a mass. Shedid have tenosynovitis of the 1st dorsal compartment in that location Also patient has history of trigger finger release and carpal tunnel release Jose Rosales MD Primary Care Sports Medicine Orthopaedics [facility] [address] [place] [address] documented in this encounter Nursing Notes * Sendy Boss LPN - 02/01/2024 9:45 AM EST NEW Pt R wrist pain x 2 mos Xray 11/24/23 Pt c/o 7/10 pain today Pt is RHD Pt is not working at this time Pt stated she has hx of CTS and release on R hand PCP ordered a brace that Pt stated she wore x 2 wks but claimed it did not help resolve pain Pt is unaccompanied Renea Valencia LPN documented in this encounter Plan of Treatment Upcoming Encounters Date Type Department Care Team (Late st Contact Info) Description 02/29/2024 9:30 AM EST Office Visit Orthopaedics [facility] [address] [place] [address] Jose Rosales MD [address] [place] [address] 08/26/2024 8:00 AM EDT Office Visit Endocrinology [address] [place] [address] Nina Chen PA-C [address] [place] [address] Health Maintenance Due Date Last Done Comments DISCUSS TOBACCO CESSATION (REFER TO SMARTSET #6933) 1985 HIV Screening 06/11/1998 Albumin/Creatinine Ratio 06/11/2001 Alpha-1 Antitrypsin 06/11/2001 Hepatitis C Screening 06/11/2001 COVID-19 Vaccine ( season) 2023 Influenza Vaccine (FLU shot) (#1) 2023 01/17/2013 GFR 05/03/2024 05/04/2023, 08/30, 11/06/2020, Additional history exists TSH 07/05/2024 07/06/2023, 0306/2023, 11/06/2020, Additional history exists Mammogram 07/14/2024 07/15/2023 [...] and At-Risk Patients (6 to 64 Years) Completed 10/21/2023, 03/19/2017 HPV (Gardasil) Vaccine Aged Out No lo nger eligible based on patient's age to complete this topic MENINGOCOCCAL (MENACTRA/MENVEO) Aged Out No longer eligible based on patient's age to complete this topic documented as of this encounter Medical Devices Implanted Type Area Rope Cleaner Device Identifier Shelf Expiration Date Model / Serial / Lot Silicone T-Tube [id number] - [id number] Implanted:Qty: 1 on 07/15/2018 by Frank Landin DO at OR [facility] Left: Ear [employer] 07/31/2027 [id number] / / [id number] Silicone T-Tube [id number] - [id number] Implanted:Qty: 1 on 07/15/2018 by Frank Landin DO at OR [facility] Right: Ear [employer] 07/31/2027 [id number] / / [id number] documented as of this encounter Visit Diagnoses Diagnosis Tendinitis, de Quervain's- Primary Radial styloid tenosynovitis Right wrist pain Pain in joint, forearm documented in this encounter Care Teams Cattle Rancher Relationship Specialty Start Date End Date Daniele Howard CRNP [address] [facility] [place] [address] PCP - General Nurse Practitioner 09/13/23 documented as of this encounter
--- OUTSIDE RECORDS SUMMARY | 2024-05-17 07:49 | External Medical Summary | Summary of Care ---
Author Name Unknown Organization [facility] Address [address] [facility] [place] [address] Phone [phone] Care Team Providers Care Block Layer Name Role Phone Daniele Howard Primary Care Provider [phone] Encounter Details Date Type Department Care Team (Late st Contact Info) Description 02/01/2024 Patient Reported Data Patient Survey Ortho [facility] Allergies Active Allergy Reactions Criticality Noted Date Comments Amoxicillin 02/05/2001 Hives Moxifloxacin Hcl In Nacl Edema airway High 11/18/2010 [place] like her throat was closing off Bactrim [...] B, by GOLD 2017 classification ([facility]) Inhale 1 Puff by mouth 2 times a day. 60 Each 3 09/15/19 21 Active Additional Information Patient not taking.Reported on 10/21/2023 Albuterol Sulfate (2.5 MG/3ML) 0.083% Inhalation Nebulization Solution (Proventil)Indicat ions:COPD, group B, by GOLD 2017 classification ([facility]) Inhale 1 Vial via nebulizer every 4 hours as needed for Wheezing. 60 mL 1 09/15/19 21 Active Neomycin-Polymyxin -HC 3.5-58391-9 Otic Solution Administer into the left ear [...] B, by GOLD 2017 classification ([facility]) inhale 2 puffs by mouth and INTO THE LUNGS every 4 hours if needed for SHORTNESS OF BREATH 18 g 1 01/06/20 24 Active Fluticasone-Salmet dorota 100-50 MCG/ACT Inhalation Aerosol Powder Breath Activated (Advair Diskus)Indications :COPD, group B, by GOLD 2017 classification ([facility]) Inhale 1 Puff by mouth in the morning and 1 Puff before bedtime. 60 Each 3 01/06/20 24 Active documented as of this encounter [...] Care Team (Late st Contact Info) Description 08/26/2024 8:00 AM EDT Office Visit Endocrinology [address] [place] [address] Nina Chen PA-C [address] [facility] [place] [address] Health Maintenance Due Date Last Done Comments DISCUSS TOBACCO CESSATION (REFER TO SMARTSET #4119) 1985 HIV Screening 06/11/1998 Albumin/Creatinine Ratio 06/11/2001 [...] this encounter Medical Devices Implanted Type Area Termite Control Technician Device Identifier Shelf Expiration Date Model / Serial / Lot Silicone T-Tube [id number] - [id number] Implanted:Qty: 1 on 07/15/2018 by Frank Landin DO at OR [facility] Left: Ear [employer] 07/31/2027 [id number] / / [id number] Silicone T-Tube [id number] - [id number] Implanted:Qty: 1 on 07/15/2018 by Frank Landin DO at OR [facility] Right: Ear [employer] 07/31/2027 [id number] / / [id number] documented as of this encounter Care Teams Block Layer Relationship Specialty Start Date End Date Daniele Howard CRNP [address] [place] [address] PCP - General Nurse Practitioner 09/13/23 documented as of this encounter
--- OUTSIDE RECORDS SUMMARY | 2024-05-17 07:49 | External Medical Summary | Summary of Care ---
Author Name Unknown Organization [facility] Address [address] [facility] [place] [address] Phone [phone] Care Team Providers Care Children'S Librarian Name Role Phone Daniele Howard Primary Care Provider [phone] Encounter Details Date Type Department Care Team (Late st Contact Info) Description 02/01/2024 Patient Reported Data Patient Survey Ortho [facility] Allergies Active Allergy Reactions Criticality Noted Date Comments Amoxicillin 02/05/2001 Hives Moxifloxacin Hcl In Nacl Edema airway High 11/18/2010 [place] like her throat was closing off Bactrim [...] group B, by GOLD 2017 classification ([facility]) Inhale 1 Puff by mouth 2 times a day. 60 Each 3 09/15/19 21 Active Additional Information Patient not taking.Reported on 10/21/2023 Albuterol Sulfate (2.5 MG/3ML) 0.083% Inhalation Nebulization Solution (Proventil)Indicat ions:COPD, group B, by GOLD 2017 classification ([facility]) Inhale 1 Vial via nebulizer every 4 hours as needed for Wheezing. 60 mL 1 09/15/19 21 Active Neomycin-Polymyxin -HC 3.5-46443-2 Otic Solution Administer into the left ear [...] group B, by GOLD 2017 classification ([facility]) inhale 2 puffs by mouth and INTO THE LUNGS every 4 hours if needed for SHORTNESS OF BREATH 18 g 1 01/06/20 24 Active Fluticasone-Salmet dorota 100-50 MCG/ACT Inhalation Aerosol Powder Breath Activated (Advair Diskus)Indications :COPD, group B, by GOLD 2017 classification ([facility]) Inhale 1 Puff by [...] Dr. [address] Nina Chen PA-C [address] [facility] [place] [address] Health Maintenance Due Date Last Done Comments DISCUSS TOBACCO CESSATION (REFER TO SMARTSET #0244) 1985 HIV Screening 06/11/1998 Albumin/Creatinine Ratio 06/11/2001 [...] this encounter Medical Devices Implanted Type Area Ornamental Rail Installer Device Identifier Shelf Expiration Date Model / Serial / Lot Silicone T-Tube [id number] - [id number] Implanted:Qty: 1 on 07/15/2018 by Frank Landin DO at OR [facility] Left: Ear [employer] 07/31/2027 [id number] / / [id number] Silicone T-Tube [id number] - [id number] Implanted:Qty: 1 on 07/15/2018 by Frank Landin DO at OR [facility] Right: Ear [employer] 07/31/2027 [id number] / / [id number] documented as of this encounter Care Teams Children'S Librarian Relationship Specialty Start Date End Date Daniele Howard CRNP [address] [place] [address] PCP - General Nurse Practitioner 09/13/23 documented as of this encounter
--- OUTSIDE RECORDS SUMMARY | 2024-05-17 07:49 | External Medical Summary | Summary of Care ---
Author Name Unknown Organization [facility] Address [address] [facility] [place] [address] Phone [phone] Care Team Providers Care Behavioral Assistant Name Role Phone Daniele Howard Primary Care Provider Reason for Visit * Reason Comments NEW PATIENT Pain R wrist * Evaluate & Treat - Unlimited Visits (Within 10 days (routine)) - Authorized Specialty Diagnoses / Procedures Referred By Anthony chandler Referred To Contact Orthopaedic Surgery / Orthopedics Diagnoses Right wrist pain Karla Yuen DO [address] [place] [address] Phone: tel: fax: Referral ID Status Reason Start Date Expiration Date Visits Requested Visits Authorized [id number] Authorized Specialty Services Required 01/06/2024 [id number] Encounter Details Date Type Department Care Team (Late st Contact Info) Description 02/01/2024 10:00 AM EST Office Visit Orthopaedics [facility] [address] [place] [address] Jose Rosales MD [address] [place] [address] Tendinitis, de Quervain's*; Right wrist pain Allergies Active Allergy Reactions Criticality Noted Date Comments Amoxicillin 02/05/2001 Hives Moxifloxacin Hcl In Nacl Edema airway High 11/18/2010 [place] like her throat was closing off Bactrim [...] as of this encounter (statuses as of 02/03/2024) Medications NEBULIZER COMPRESSOR MISCIndications:Ac ángela sinusitis Use [...] :COPD, group B, by GOLD 2017 classification ([facility]) Inhale 1 Puff by mouth 2 times a day. 60 Each 3 09/15/19 21 Active Additional Information Patient not taking.Reported on 10/21/2023 Albuterol Sulfate (2.5 MG/3ML) 0.083% Inhalation Nebulization Solution (Proventil)Indicat ions:COPD, group B, by GOLD 2017 classification ([facility]) Inhale 1 Vial via nebulizer every 4 hours as needed for Wheezing. 60 mL 1 09/15/19 21 Active Neomycin-Polymyxin -HC 3.5-45863-4 Otic Solution Administer into the left ear [...] s:Wheezing,COPD, group B, by GOLD 2017 classification ([facility]) inhale 2 puffs by mouth and INTO THE LUNGS every 4 hours if needed for SHORTNESS OF BREATH 18 g 1 01/06/20 24 Active Fluticasone-Salmet dorota 100-50 MCG/ACT Inhalation Aerosol Powder Breath Activated (Advair Diskus)Indications :COPD, group B, by GOLD 2017 classification ([facility]) Inhale 1 Puff by mouth in the morning and 1 Puff before bedtime. 60 Each 3 01/06/20 24 Active methylPREDNISolone 4 MG Oral Tablet Therapy Pack (Medrol Dosepack) follow package directions 21 Tablet 1 02/01/20 24 Active documented as of this encounter (statuses as of 02/03/2024) Active Problems Problem Noted Date Diagnosed Date [...] as of this encounter (statuses as of 02/03/2024) Resolved Problems Problem Noted Date Diagnosed Date [...] as of this encounter (statuses as of 02/03/2024) Immunizations Name Administration Dates Next Due Diptheria/Tetanus (Adult) 10/21/1994 Hepatitis B Vaccine 05/20/1995,11/20/1994,1994 MMR - Measles/Mumps/Rubella Vaccine 06/27/1994 PPD 11/15/1999 Pneumococcal Conjugate Vacci ne, 20-valent ([id number]) 10/21/2023 Pneumococcal Polysaccharide PPV23 (Pneumovax) 03/19/2017 Seasonal [...] - 02/01/2024 9:44 AM EST Sachi Miller [id number] Sachi Miller is a 38 year old female who presents for consultation to [facility] for right wrist injury/pain. 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 [...] Rosales MD Primary Care Sports Medicine Orthopaedics [address] [address] documented in this encounter Nursing Notes * [...] Renea Valencia LPN documented in this encounter Miscellaneous Notes * Addendum Note - Sendy Boss LPN - 02/03/2024 10:31 AM ESTAddended by: SENDY BOSS on: 02/03/2024 10:31 AM Modules accepted: Orders documented in this encounter Plan of Treatment Upcoming Encounters Date Type Department Care Team (Late st Contact Info) Description 02/29/2024 9:30 AM EST Office Visit Orthopaedics [facility] [address] [place] [address] Jose Rosales MD [address] [place] [address] 08/26/2024 8:00 AM EDT Office Visit Endocrinology [address] [place] [address] Nina Chen PA-C [address] [place] [address] Health Maintenance Due Date Last Done Comments DISCUSS TOBACCO CESSATION (REFER TO SMARTSET #8860) 1985 HIV Screening 06/11/1998 Albumin/Creatinine Ratio 06/11/2001 [...] this encounter Medical Devices Implanted Type Area Openstack Developer Device Identifier Shelf Expiration Date Model / Serial / Lot Silicone T-Tube [id number] - [id number] Implanted:Qty: 1 on 07/15/2018 by Frank Landin DO at OR [facility] Left: Ear [employer] 07/31/2027 [id number] / / [id number] Silicone T-Tube [id number] - [id number] Implanted:Qty: 1 on 07/15/2018 by Frank Landin DO at OR [facility] Right: Ear [employer] 07/31/2027 [id number] / / [id number] documented as of this encounter Visit Diagnoses Diagnosis Tendinitis, de Quervain's- Primary Radial styloid tenosynovitis Right wrist pain Pain in joint, forearm documented in this encounter Care Teams Behavioral Assistant Relationship Specialty Start Date End Date Daniele Howard CRNP [address] [place] [address] PCP - General Nurse Practitioner 09/13/23 documented as of this encounter
--- OUTSIDE RECORDS SUMMARY | 2024-05-17 07:49 | External Medical Summary | Summary of Care ---
Author Name Unknown Organization [facility] Address [address] [facility] [address] Phone [phone] Care Team Providers Care Hogshead Dumper Name Role Phone Daniele Howard Primary Care Provider [phone] Reason for Visit * Reason Comments Follow Up Right thumb/wrist pa in Encounter Details Date Type Department Care Team (Late st Contact Info) Description 02/29/2024 11:15 AM EST Office Visit Orthopaedics [facility] [address] [place] [address] Jose Rosales MD [address] [place] [address] Tendinitis, de Quervain's* Allergies Active Allergy Reactions Criticality Noted Date Comments Amoxicillin 02/05/2001 Hives Moxifloxacin Hcl In Nacl Edema airway High 11/18/2010 [place] like her throat was closing off Bactrim [...] as of this encounter (statuses as of 02/29/2024) Medications NEBULIZER COMPRESSOR MISCIndications:Ac ángela sinusitis Use [...] :COPD, group B, by GOLD 2017 classification ([facility]) Inhale 1 Puff by mouth 2 times a day. 60 Each 3 09/15/19 21 Active Additional Information Patient not taking.Reported on 10/21/2023 Albuterol Sulfate (2.5 MG/3ML) 0.083% Inhalation Nebulization Solution (Proventil)Indicat ions:COPD, group B, by GOLD 2017 classification ([facility]) Inhale 1 Vial via nebulizer every 4 hours as needed for Wheezing. 60 mL 1 09/15/19 21 Active Neomycin-Polymyxin -HC 3.5-15122-3 Otic Solution Administer into the left ear [...] s:Wheezing,COPD, group B, by GOLD 2017 classification ([facility]) inhale 2 puffs by mouth and INTO THE LUNGS every 4 hours if needed for SHORTNESS OF BREATH 18 g 1 01/06/20 24 Active Fluticasone-Salmet dorota 100-50 MCG/ACT Inhalation Aerosol Powder Breath Activated (Advair Diskus)Indications :COPD, group B, by GOLD 2017 classification ([facility]) Inhale 1 Puff by mouth in the morning and 1 Puff before bedtime. 60 Each 3 01/06/20 24 Active methylPREDNISolone 4 MG Oral Tablet Therapy Pack (Medrol Dosepack) follow package directions 21 Tablet 1 02/01/20 24 Active Erythromycin 5 MG/GM Ophthalmic OintmentIndication s:Bacterial conjunctivitis of right eye Instill into the right eye 4 times a day for 10 days. Apply to affected eye(s) until redness and discharge resolved. 1 g 02/22/20 24 025 Active Hospital, Clinic, or Other Facility Administered Medication Ordered Dose Route Frequency Start Date End Date Status lidocaine 1% 1 mL - triamcinolone acetonide 40 mg/mL 1 mL inj 2 mLIndications:Tendinitis, de Quervain's 2 mL IJ ONCE 02/29/2024 02/29/2024 Ended documented as of this encounter (statuses as of 02/29/2024) Active Problems Problem Noted Date Diagnosed Date [...] as of this encounter (statuses as of 02/29/2024) Resolved Problems Problem Noted Date Diagnosed Date [...] as of this encounter (statuses as of 02/29/2024) Immunizations Name Administration Dates Next Due Diptheria/Tetanus (Adult) 10/21/1994 Hepatitis B Vaccine 05/20/1995,11/20/1994,1994 MMR - Measles/Mumps/Rubella Vaccine 06/27/1994 PPD 11/15/1999 Pneumococcal Conjugate Vacci ne, 20-valent ([id number]) 10/21/2023 Pneumococcal Polysaccharide PPV23 (Pneumovax) 03/19/2017 Seasonal [...] as of this encounter Progress Notes * Jose Rosales MD - 02/29/2024 11:04 AM EST Sachi Chavez [id number] Sachi Chavez is a 38 year old female who presents for follow-up to [facility] Sports Medicine [facility] for right wrist injury/pain. I saw her originally for this on 02/01/2024 Sachi Chavez is here unaccompanied Handedness: right History: Severity: reviewed and agree with Nursing Notes for HPI elements History - History on 02/01/2024 NEW Pt R wrist pain x 2 mos Xray 11/24/23 Pt c/o 09/08 pain today Pt is RHD Pt is not working at this time Pt stated she has hx of CTS and release on R hand PCP ordered a brace that Pt stated she wore x 2 wks but claimed it did not help resolve pain Since that visit: Has not had any benefit despite use of thumb spica brace as well as oral steroids. 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 Patient understands it may weaken tendon which could lead to rupture, also discussed possibility for allergic reaction, infection, and skin atrophy which could lead to discoloration of the skin She will message me in 3-4 weeks. For lack of improvement would recommend consultation with a hand surgeon. Also patient has history of trigger finger release and carpal tunnel release PROCEDURE NOTE: DEQUERVAIN'S INJECTION Laterality: Right Time out: Prior to injection, a time out was called to confirm the administration of appropriate medicine, patient name, procedure and confirm to the best of our ability and knowledge the presence of any necessary risks and benefits. Patient verbalized understanding. Ultrasound utilized to guide injection. During the procedure, the needle was visualized in plane and was advanced with continuous ultrasound guidance to the appropriate anatomical landmark as described in the procedure. Ultrasound required due to high risk for complications without ultrasound guidance (risk for neurovascular damage) Sterile technique applied using gloves, chlorhexadine, and alcohol swabs. Ethyl chloride spray for local anesthetic. EPL and APL tendon sheath just proximal to radial styloid injected using 5/8 inch, 25 gauge needle.Injected with 1 mL Lidocaine 1% - 1 mL Triamcinolone Acetonide 40 mg/mL >> inject 2 mL. Patient tolerated procedure with no significant bleeding or adverse reaction. Patient instructed to call or return to clinic for fever, warmth, unusual redness at injection sitefor potential infection. Patient also advised regarding post-procedural pain. Jose Rosales MD Sports Medicine Primary Care Orthopaedics [place] [address] documented in this encounter Nursing Notes * Sabrina Luis LPN - 02/29/2024 10:36 AM EST Pt presents for injection to right 1st [facility] joint pain. Pt is RHD. Sabrina Simpson LPN documented in this encounter Plan of Treatment Upcoming Encounters Date Type Department Care Team (Late st Contact Info) Description 08/26/2024 8:00 AM EDT Office Visit Endocrinology [address], [place] [address] Nina Chen PA-C [address] [place] [address] Health Maintenance Due Date Last Done Comments DISCUSS TOBACCO CESSATION (REFER TO SMARTSET #2567) 1985 HIV Screening 06/11/1998 Albumin/Creatinine Ratio 06/11/2001 [...] this encounter Medical Devices Implanted Type Area Fork Truck Driver Device Identifier Shelf Expiration Date Model / Serial / Lot Silicone T-Tube [id number] - [id number] Implanted:Qty: 1 on 07/15/2018 by Frank Landin DO at OR [facility] Left: Ear [employer] 07/31/2027 [id number] / / [id number] Silicone T-Tube [id number] - [id number] Implanted:Qty: 1 on 07/15/2018 by Frank Landin DO at OR [facility] Right: Ear [employer] 07/31/2027 [id number] / / [id number] documented as of this encounter Procedures Procedure Name Priority Date/Time Associated Diagnosis Comments US GUIDED NEEDLE PLACEMENT (SITE ORTHO) Routine 02/29/2024 7:49 PM EST Tendinitis, de Quervain's documented in this encounter Results * POINT OF CARE US GUIDED NEEDLE PLACEMENT (02/29/2024 7:49 PM EST) Anatomical Region Laterality Modality Any Radiographic Mary Kay ging 02/29/2024 7:49 PM EST Narrative 02/29/2024 11:12 AM EST Patient Name: SACHI CHAVEZ : 1985 (38y) Female Performing Provider: Jose Rosales (digitally signed Feb 29, 2024 11:12 EST) Attending: Jose Rosales (digitally signed Feb 29, 2024 11:12 EST) [Impression] : PROCEDURE NOTE: DEQUERVAIN'S INJECTION Laterality: Right Time out: Prior to injection, a time out was called to confirm the administration of appropriate medicine, patient name, procedure and confirm to the best of our ability and knowledge the presence of any necessary risks and benefits. Patient verbalized understanding. Ultrasound utilized to guide injection. During the procedure, the needle was visualized in plane and was advanced with continuous ultrasound guidance to the appropriate anatomical landmark as described in the procedure. Ultrasound required due to high risk for complications without ultrasound guidance (risk for neurovascular damage) Sterile technique applied using gloves, chlorhexadine, and alcohol swabs. Ethyl chloride spray for local anesthetic. EPL and APL tendon sheath just proximal to radial styloid injected using 5/8 inch, 25 gauge needle. Injected with 1 mL Lidocaine 1% - 1 mL Triamcinolone Acetonide 40 mg/mL >> inject 2 mL. Patient tolerated procedure with no significant bleeding or adverse reaction. Procedure Note Jose Rosales MD - 02/29/2024 Patient Name: SACHI CHAVEZ : 1985 (38y) Female Performing Provider: Jose Rosales (digitally signed Feb 29, 2024 11:12EST) Attending: Jose Rosales (digitally signed Feb 29, 2024 11:12 EST) [Impression] : PROCEDURE NOTE: DEQUERVAIN'S INJECTION Laterality: Right Time out: Prior to injection, a time out was called to confirm the administration ofappropriate medicine, patient name, procedure and confirm to the best ofour ability and knowledge the presence of any necessary risks andbenefits. Patient verbalized understanding. Ultrasound utilized to guide injection. During the procedure, the needle was visualized in plane and was advancedwith continuous ultrasound guidance to the appropriate anatomical landmarkas described in the procedure. Ultrasound required due to high risk for complications without ultrasoundguidance (risk for neurovascular damage) Sterile technique applied using gloves, chlorhexadine, and alcoholswabs. Ethyl chloride spray for local anesthetic. EPL and APL tendon sheath just proximal to radial styloid injected using5/8 inch, 25 gauge needle. Injected with 1 mL Lidocaine 1% - 1 mLTriamcinolone Acetonide 40 mg/mL >> inject 2 mL. Patient tolerated procedure with no significant bleeding or adversereaction. us Jose Rosales MD [facility] Fin al Result documented in this encounter Visit Diagnoses Diagnosis Tendinitis, de Quervain's- Primary Radial styloid tenosynovitis documented in this encounter Administered Medications Inactive Administered Medications - up to 3 most recent administrations Medication Order MAR Action Action Date Dose Rate Site lidocaine 1% 1 mL - triamcinolone acetonide 40 mg/mL 1 mL inj 2 mL 2 mL, Injection, ONCE, On 02/29/24 at 1145, For 1 dose, Lidocaine 1% 1mL Triamcinolone Acetonide 40 mg/mL 1 mL (Final concentration = 20 mg/mL) REFRIGERATE and SHAKE WELLIndications:Tendinitis, de Quervain's Given 02/29/2024 11:50 AM EST 2 mL Hand Right documented in this encounter Care Teams Hogshead Dumper Relationship Specialty Start Date End Date Daniele Howard CRNP [address] [place] [address] PCP - General Nurse Practitioner 09/13/23 documented as of this encounter
--- OUTSIDE RECORDS SUMMARY | 2024-05-17 07:49 | External Medical Summary | Summary of Care ---
Author Name Unknown Organization [facility] Address [address] [facility] [address] Phone [phone] Care Team Providers Care Bouffant Curtain Machine Tender Name Role Phone Daniele Howard Primary Care Provider Reason for Visit * Reason Comments Follow Up Right thumb/wrist pa in Encounter Details Date Type Department Care Team (Late st Contact Info) Description 02/29/2024 11:15 AM EST Office Visit Orthopaedics [facility] [address] [place] [address] Jose Rosales MD [address] [place] [address] Tendinitis, de Quervain's* Allergies Active Allergy Reactions Criticality Noted Date Comments Amoxicillin 02/05/2001 Hives Moxifloxacin Hcl In Nacl Edema airway High 11/18/2010 [place] like her throat was closing off [...] :COPD, group B, by GOLD 2017 classification ([facility]) Inhale 1 Puff by mouth 2 times a day. 60 Each 3 09/15/19 21 Active Additional Information Patient not taking.Reported on 10/21/2023 Albuterol Sulfate (2.5 MG/3ML) 0.083% Inhalation Nebulization Solution (Proventil)Indicat ions:COPD, group B, by GOLD 2017 classification ([facility]) Inhale 1 Vial via nebulizer every 4 hours as needed for Wheezing. 60 mL 1 09/15/19 21 Active Neomycin-Polymyxin -HC 3.5-91905-0 Otic Solution Administer into the left ear [...] s:Wheezing,COPD, group B, by GOLD 2017 classification ([facility]) inhale 2 puffs by mouth and INTO THE LUNGS every 4 hours if needed for SHORTNESS OF BREATH 18 g 1 01/06/20 24 Active Fluticasone-Salmet dorota 100-50 MCG/ACT Inhalation Aerosol Powder Breath Activated (Advair Diskus)Indications :COPD, group B, by GOLD 2017 classification ([facility] [...] PPD 11/15/1999 Pneumococcal Conjugate Vacci ne, 20-valent ([id number]) 10/21/2023 Pneumococcal Polysaccharide PPV23 (Pneumovax) 03/19/2017 Seasonal [...] - 02/29/2024 11:04 AM EST Sachi Chavez [id number] Sachi Chavez is a 38 year old female who presents for follow-up to [facility] for right wrist injury/pain. 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 [...] Rosales MD Sports Medicine Primary Care Orthopaedics [place] [address] documented in this encounter Nursing Notes * [...] Comments DISCUSS TOBACCO CESSATION (REFER TO SMARTSET #1985) 1985 HIV Screening 06/11/1998 Albumin/Creatinine Ratio 06/11/2001 [...] this encounter Medical Devices Implanted Type Area Coil Winder Repair Device Identifier Shelf Expiration Date Model / Serial / Lot Silicone T-Tube [id number] - [id number] Implanted:Qty: 1 on 07/15/2018 by Frank Landin DO at OR [facility] Left: Ear [employer] 07/31/2027 [id number] / / [id number] Silicone T-Tube [id number] - [id number] Implanted:Qty: 1 on 07/15/2018 by Frank Landin DO at OR [facility] Right: Ear [employer] 07/31/2027 [id number] / / [id number] documented as of this encounter Procedures Procedure [...] bleeding or adversereaction. us Jose Rosales MD [facility] Fin al Result documented in this [...] Right documented in this encounter Care Teams Bouffant Curtain Machine Tender Relationship Specialty Start Date End Date Daniele Howard CRNP [address] [place] [address] PCP - General Nurse Practitioner 09/13/23 documented as of this encounter
--- OUTSIDE RECORDS SUMMARY | 2024-05-17 07:49 | External Medical Summary | Summary of Care ---
Author Name Unknown Organization [facility] Address [address] [facility] [address] Phone [phone] Care Team Providers Care Valver Name Role Phone Daniele Howard Primary Care Provider [phone] Reason for Visit * Reason Comments Follow Up Right thumb/wrist pa in Encounter Details Date Type Department Care Team (Late st Contact Info) Description 02/29/2024 11:15 AM EST Office Visit Orthopaedics [facility] [address] [place] [address] Jose Rosales MD [address] [place] [address] Tendinitis, de Quervain's* Allergies Active Allergy Reactions Criticality Noted Date Comments Amoxicillin 02/05/2001 Hives Moxifloxacin Hcl In Nacl Edema airway High 11/18/2010 [place] like her throat was closing off Bactrim [...] :COPD, group B, by GOLD 2017 classification ([facility]) Inhale 1 Puff by mouth 2 times a day. 60 Each 3 09/15/19 21 Active Additional Information Patient not taking.Reported on 10/21/2023 Albuterol Sulfate (2.5 MG/3ML) 0.083% Inhalation Nebulization Solution (Proventil)Indicat ions:COPD, group B, by GOLD 2017 classification ([facility]) Inhale 1 Vial via nebulizer every 4 hours as needed for Wheezing. 60 mL 1 09/15/19 21 Active Neomycin-Polymyxin -HC 3.5-58648-0 Otic Solution Administer into the left ear [...] s:Wheezing,COPD, group B, by GOLD 2017 classification ([facility]) inhale 2 puffs by mouth and INTO THE LUNGS every 4 hours if needed for SHORTNESS OF BREATH 18 g 1 01/06/20 24 Active Fluticasone-Salmet dorota 100-50 MCG/ACT Inhalation Aerosol Powder Breath Activated (Advair Diskus)Indications :COPD, group B, by GOLD 2017 classification ([facility] [...] Quervain's 2 mL IJ ONCE 02/29/2024 02/29/2024 Active documented as of this encounter (statuses [...] 02/29/2024) Immunizations Name Administration Dates Next Due Pneumococcal [...] - 02/29/2024 11:04 AM EST Sachi Chavez [id number] Sachi Chavez is a 38 year old female who presents for follow-up to [facility] for right wrist injury/pain. 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 Pt is RHD. Sabrina Simpson LPN documented in this encounter Plan of Treatment Upcoming Encounters Date Type Department Care Team (Late st Contact Info) Description 02/29/2024 11:45 AM EST Imaging Radiology [place] [address] [facility] [place] [address] Arrived 08/26/2024 8:00 AM EDT Office Visit Endocrinology [address] [place] [phone] Nina Chen PA-C [address] [place] [address] Health Maintenance Due Date Last Done Comments DISCUSS TOBACCO CESSATION (REFER TO SMARTSET #0930) 1983 HIV Screening 06/11/1998 Albumin/Creatinine Ratio 06/11/2001 [...] this encounter Medical Devices Implanted Type Area Missile Control Pilot Device Identifier Shelf Expiration Date Model / Serial / Lot Silicone T-Tube [id number] - [id number] Implanted:Qty: 1 on 07/15/2018 by Frank Landin DO at [facility] Left: Ear [employer] 07/31/2027 [id number] / / [id number] Silicone T-Tube [id number] - [id number] Implanted:Qty: 1 on 07/15/2018 by Frank Landin DO at [facility] Right: Ear [employer] 07/31/2027 [id number] / / [id number] documented as of this encounter Procedures Procedure [...] bleeding or adversereaction. us Jose Rosales MD RAD ULTRASOUND Fin al Result documented in this encounter Visit Diagnoses Diagnosis Tendinitis, de Quervain's- Primary Radial styloid tenosynovitis documented in this encounter Care Teams Valver Relationship Specialty Start Date End Date Daniele Howard CRNP [address] [facility] [place] [address] PCP - General Nurse Practitioner 09/13/23 documented as of this encounter
--- OUTSIDE RECORDS SUMMARY | 2024-05-17 07:49 | External Medical Summary | Summary of Care ---
Author Name Unknown Organization [facility] Address [address] [facility] [place] [address] Phone [phone] Care Team Providers Care Tankroom Tender Name Role Phone Daniele Howard Primary Care Provider [phone] Encounter Details Date Type Department Care Team (Late st Contact Info) Description 02/01/2024 Patient Reported Data Patient Survey Ortho [facility] Allergies Active Allergy Reactions Criticality Noted Date Comments Amoxicillin 02/05/2001 Hives Moxifloxacin Hcl In Nacl Edema airway High 11/18/2010 [place] like her throat was closing off Bactrim [...] mL 1 09/15/19 21 Active Neomycin-Polymyxin -HC 3.5-14174-7 Otic Solution Administer into the left ear [...] GOLD 2017 classification ([facility]) inhale 2 puffs by mouth and INTO THE LUNGS every 4 hours if needed for SHORTNESS OF BREATH 18 g 1 01/06/20 24 Active Fluticasone-Salmet dorota 100-50 MCG/ACT Inhalation Aerosol Powder Breath Activated (Advair Diskus)Indications :COPD, group B, by GOLD 2017 classification ([facility]) Inhale 1 Puff by mouth in the [...] Dr. [phone] Nina Chen PA-C [address] [facility] [place] [address] Health Maintenance Due Date Last Done Comments DISCUSS TOBACCO CESSATION (REFER TO SMARTSET #6155) 1985 HIV Screening 06/11/1998 Albumin/Creatinine Ratio 06/11/2001 [...] this encounter Medical Devices Implanted Type Area Wrapper Caser Device Identifier Shelf Expiration Date Model / Serial / Lot Silicone T-Tube [id number] - [id number] Implanted:Qty: 1 on 07/15/2018 by Frank Landin DO at [facility] Left: Ear [employer] 07/31/2027 [id number] / / [id number] Silicone T-Tube [id number] - [id number] Implanted:Qty: 1 on 07/15/2018 by Frank Landin DO at OR [facility] Right: Ear [employer] 07/31/2027 [id number] / / [id number] documented as of this encounter Care Teams Tankroom Tender Relationship Specialty Start Date End Date Daniele Howard CRNP [address] [place] [address] PCP - General Nurse Practitioner 09/13/23 documented as of this encounter
--- OUTSIDE RECORDS SUMMARY | 2024-05-17 07:49 | External Medical Summary | Summary of Care ---
Author Name Unknown Organization [facility] Address [address] [facility] [place] [address] Phone [phone] Care Team Providers Care Web Specialist Name Role Phone Daniele Howard Primary Care Provider [phone] Encounter Details Date Type Department Care Team (Late st Contact Info) Description 02/01/2024 Patient Reported Data Patient Survey Ortho [facility] Allergies Active Allergy Reactions Criticality Noted Date Comments Amoxicillin 02/05/2001 Hives Moxifloxacin Hcl In Nacl Edema airway High 11/18/2010 [place] like her throat was closing off Bactrim [...] :COPD, group B, by GOLD 2017 classification ([facility]) Inhale 1 Puff by mouth 2 times a day. 60 Each 3 09/15/19 21 Active Additional Information Patient not taking.Reported on 10/21/2023 Albuterol Sulfate (2.5 MG/3ML) 0.083% Inhalation Nebulization Solution (Proventil)Indicat ions:COPD, group B, by GOLD 2017 classification ([facility]) Inhale 1 Vial via nebulizer every 4 hours as needed for Wheezing. 60 mL 1 09/15/19 21 Active Neomycin-Polymyxin -HC 3.5-18736-9 Otic Solution Administer into the left ear [...] s:Wheezing,COPD, group B, by GOLD 2017 classification ([facility]) inhale 2 puffs by mouth and INTO THE LUNGS every 4 hours if needed for SHORTNESS OF BREATH 18 g 1 01/06/20 24 Active Fluticasone-Salmet dorota 100-50 MCG/ACT Inhalation Aerosol Powder Breath Activated (Advair Diskus)Indications :COPD, group B, by GOLD 2017 classification ([facility]) Inhale 1 Puff by mouth [...] Dr. [phone] Nina Chen PA-C [address] [facility] [place] [address] Health Maintenance Due Date Last Done Comments DISCUSS TOBACCO CESSATION (REFER TO SMARTSET #6507) 1985 HIV Screening 06/11/1998 Albumin/Creatinine Ratio 06/11/2001 [...] this encounter Medical Devices Implanted Type Area Electronic Train Control Technician Device Identifier Shelf Expiration Date Model / Serial / Lot Silicone T-Tube [id number] - [id number] Implanted:Qty: 1 on 07/15/2018 by Frank Landin DO at [facility] Left: Ear [employer] 07/31/2027 [id number] / / [id number] Silicone T-Tube [id number] - [id number] Implanted:Qty: 1 on 07/15/2018 by Frank Landin DO at OR [facility] Right: Ear [employer] 07/31/2027 [id number] / / [id number] documented as of this encounter Care Teams Web Specialist Relationship Specialty Start Date End Date Daniele Howard CRNP [address] [place] [address] PCP - General Nurse Practitioner 09/13/23 documented as of this encounter
--- OUTSIDE RECORDS SUMMARY | 2024-05-17 07:50 | External Medical Summary | Summary of Care ---
Author Name Unknown Organization [facility] Address [address] [facility] [address] Phone [phone] Care Team Providers Care Electrical Wiring Lineman Name Role Phone Daniele Howard Primary Care Provider [phone] Encounter Details Date Type Department Care Team (Late st Contact Info) Description 02/01/2024 Patient Reported Data Patient Survey Ortho [facility] Allergies Active Allergy Reactions Criticality Noted Date Comments Amoxicillin 02/05/2001 Hives Moxifloxacin Hcl In Nacl Edema airway High 11/18/2010 [place] like her throat was closing off Bactrim [...] :COPD, group B, by GOLD 2017 classification ([facility]) Inhale 1 Puff by mouth 2 times a day. 60 Each 3 09/15/19 21 Active Additional Information Patient not taking.Reported on 10/21/2023 Albuterol Sulfate (2.5 MG/3ML) 0.083% Inhalation Nebulization Solution (Proventil)Indicat ions:COPD, group B, by GOLD 2017 classification ([facility]) Inhale 1 Vial via nebulizer every 4 hours as needed for Wheezing. 60 mL 1 09/15/19 21 Active Neomycin-Polymyxin -HC 3.5-24411-4 Otic Solution Administer into the left ear [...] s:Wheezing,COPD, group B, by GOLD 2017 classification ([facility]) inhale 2 puffs by mouth and INTO THE LUNGS every 4 hours if needed for SHORTNESS OF BREATH 18 g 1 01/06/20 24 Active Fluticasone-Salmet dorota 100-50 MCG/ACT Inhalation Aerosol Powder Breath Activated (Advair Diskus)Indications :COPD, group B, by GOLD 2017 classification ([facility]) Inhale 1 Puff by mouth in the [...] 02/01/2024 10:00 AM EST Office Visit Orthopaedics [facility] [address] [facility] [place] [address] Jose Rosales MD [address] [place] [address] Sachi Miller 08/26/2024 8:00 AM EDT Office Visit Endocrinology [address] [place] [phone] Nina Chen PA-C [address] [facility] [place] [address] Health Maintenance Due Date Last Done Comments DISCUSS TOBACCO CESSATION (REFER TO SMARTSET #1094) 1985 HIV Screening 06/11/1998 Albumin/Creatinine Ratio 06/11/2001 [...] this encounter Medical Devices Implanted Type Area Inspection Engineer Device Identifier Shelf Expiration Date Model / Serial / Lot Silicone T-Tube [id number] - [id number] Implanted:Qty: 1 on 07/15/2018 by Frank Landin, at OR [facility] Left: Ear [employer] 07/31/2027 [id number] / / [id number] Silicone T-Tube [id number] - [id number] Implanted:Qty: 1 on 07/15/2018 by Frank Landin DO at OR [facility] Right: Ear [employer] 07/31/2027 [id number] / / [id number] documented as of this encounter Care Teams Electrical Wiring Lineman Relationship Specialty Start Date End Date Daniele Howard CRNP [address] [facility] [place] [address] PCP - General Nurse Practitioner 09/13/23 documented as of this encounter
--- OUTSIDE RECORDS SUMMARY | 2024-05-17 07:50 | External Medical Summary | Summary of Care ---
Author Name Unknown Organization [facility] Address [address] [facility] [address] Phone [phone] Care Team Providers Care Online Marketing Strategist Name Role Phone Daniele Howard Primary Care Provider [phone] Encounter Details Date Type Department Care Team (Late st Contact Info) Description 02/01/2024 Patient Reported Data Patient Survey Ortho [facility] Allergies Active Allergy Reactions Criticality Noted Date Comments Amoxicillin 02/05/2001 Hives Moxifloxacin Hcl In Nacl Edema airway High 11/18/2010 [place] like her throat was closing off Bactrim [...] by GOLD 2017 classification ([facility]) Inhale 1 Puff by mouth 2 times a day. 60 Each 3 09/15/19 21 Active Additional Information Patient not taking.Reported on 10/21/2023 Albuterol Sulfate (2.5 MG/3ML) 0.083% Inhalation Nebulization Solution (Proventil)Indicat ions:COPD, group B, by GOLD 2017 classification ([facility]) Inhale 1 Vial via nebulizer every 4 hours as needed for Wheezing. 60 mL 1 09/15/19 21 Active Neomycin-Polymyxin -HC 3.5-44803-1 Otic Solution Administer into the left ear [...] by GOLD 2017 classification ([facility]) inhale 2 puffs by mouth and INTO THE LUNGS every 4 hours if needed for SHORTNESS OF BREATH 18 g 1 01/06/20 24 Active Fluticasone-Salmet dorota 100-50 MCG/ACT Inhalation Aerosol Powder Breath Activated (Advair Diskus)Indications :COPD, group B, by GOLD 2017 classification ([facility]) Inhale 1 Puff by mouth in [...] Comments DISCUSS TOBACCO CESSATION (REFER TO SMARTSET #0783) 1985 HIV Screening 06/11/1998 Albumin/Creatinine Ratio 06/11/2001 [...] this encounter Medical Devices Implanted Type Area Interface Developer Device Identifier Shelf Expiration Date Model / Serial / Lot Silicone T-Tube [id number] - [id number] Implanted:Qty: 1 on 07/15/2018 by Frank Landin DO at OR [facility] Left: Ear [employer] 07/31/2027 [id number] / / [id number] Silicone T-Tube [id number] - [id number] Implanted:Qty: 1 on 07/15/2018 by Frank Landin DO at OR [facility] Right: Ear [employer] 07/31/2027 [id number] / / [id number] documented as of this encounter Care Teams Online Marketing Strategist Relationship Specialty Start Date End Date Daniele Howard CRNP [address] [place] [address] PCP - General Nurse Practitioner 09/13/23 documented as of this encounter
--- OUTSIDE RECORDS SUMMARY | 2024-05-17 07:50 | External Medical Summary | Summary of Care ---
Author Name Unknown Organization [facility] Address [address] [facility] [place] [address] Phone [phone] Care Team Providers Care Surgical Sales Representative Name Role Phone Lee Jacekaicha SAUL Primary Care Provider Reason for Visit * Reason Comments Acute Right wrist-- 1 week pain, lump on wrist. Hard, not soft. Encounter Details Date Type Department Care Team (Late st Contact Info) Description 11/24/2023 11:00 AM EDT Office Visit Family Practice [facility] [address] [place] [address] Cindy Nelson CRNP [address] [place] [address] Right wrist pain* Allergies Active Allergy Reactions Criticality Noted Date Comments Amoxicillin 02/05/2001 Hives Moxifloxacin Hcl In Nacl Edema airway High 11/18/2010 [place] like her throat was closing off Bactrim [...] as of this encounter (statuses as of 11/24/2023) Medications Medication Sig Dispensed Refills Start Date [...] the Emergency room. 2 Each 04/08/2020 Active Fluticasone-Salmetero l 100-50 MCG/DOSE Inhalation Aerosol Powder Breath Activated (Advair Diskus)Indications:CO PD, group B, by GOLD 2017 classification ([facility]) Inhale 1 Puff by mouth 2 times a day. 60 Each 3 09/14/2020 Active Additional Information Patient not taking.Reported on 10/21/2023 Albuterol Sulfate (2.5 MG/3ML) 0.083% Inhalation Nebulization Solution (Proventil)Indication s:COPD, group B, by GOLD 2017 classification ([facility]) Inhale 1 Vial via nebulizer every 4 hours as needed for Wheezing. 60 mL 1 09/14/2020 Active Iuwubjqo-Atbjvbcxc-IR 3.5-24380-5 Otic Solution Administer into the left ear [...] 8 weeks 30 g 1 07/29/2022 Active Cyclobenzaprine HCl 10 MG Oral Tablet [...] other meds) 90 Tablet 1 08/26/2023 Active Albuterol Sulfate HFA 108 (90 Base) MCG/ACT Inhalation Aerosol SolutionIndications:W heezing inhale 2 puffs by mouth and INTO THE LUNGS every 4 hours if needed for SHORTNESS OF BREATH 18 g 1 10/21/2023 Active documented as of this encounter (statuses as of 11/24/2023) Active Problems Problem Noted Date Diagnosed Date [...] as of this encounter (statuses as of 11/24/2023) Resolved Problems Problem Noted Date Diagnosed Date [...] as of this encounter (statuses as of 11/24/2023) Immunizations Name Administration Dates Next Due Pneumococcal Conjugate Vaccine, 20-valent (Prevn ar20) 10/21/2023 Pneumococcal Polysaccharide PPV23 (Pneumovax) Seasonal Influenza, Trivalen t, (IIV3), with Preserv, (Fluzone) 01/17/2013 TDAP (age 10 and older)(Boostrix) [...] Sign Reading Time Taken Comments Blood Pressure 124/88 11/24/2023 10:57 AM EDT Pulse 77 11/24/2023 10:57 AM EDT Temperature 36.8 C (98.3 F) 11/24/2023 10:57 AM E DT Respiratory Rate - - Oxygen Saturation 97% 11/24/2023 10:57 AM EDT Inhaled Oxygen Concentration - - Weight - - Height - - Body Mass Index - - documented in this encounter Progress Notes * Cindy Nelson CRNP - 11/24/2023 11:21 AM EDT Images from the original note were not included. History of Present Illness Sachi Miller is a 38 year old female that presents for Acute (Right wrist-- 1 week pain, lump on wrist. Hard, not soft. ) HPI Here for wrist pain as above. Pain is on radial aspect of wrist. Hurts to hold a pen, make a fist. In last day or two has noticed some numbness in the thumb and second digit. Hx CTS - had surgery about 12 years ago at [facility]. She was using hedge trimmers a week or so ago that possibly preceded the pain - can't recall specific injury otherwise. [place] what maybe is a hard lump on radial wrist - has had ganglion cyst removed from L wrist in pastthat was much bigger, rubbery, mobile than this lump. Current Outpatient Medications Medication Sig Dispense Refill Albuterol Sulfate HFA 108 (90 Base) MCG/ACT Inhalation Aerosol Solution inhale 2 puffs by mouth andINTO THE LUNGS every 4 hours if needed for SHORTNESS OF BREATH 18 g 1 Levothyroxine Sodium 200 MCG Oral Tablet (Levoxyl) Take 1 tablet by mouth daily (at least 30 min prior to breakfast or other meds) 90 Tablet 1 Ketoconazole 2 % External Cream Apply topically to both feet twice daily 30 g 2 hydroCHLOROthiazide 25 MG Oral Tablet (Hydrodiuril) Take 1 Tablet by mouth in the morning. 90 Tablet 0 Losartan Potassium 50 MG Oral Tablet (Cozaar) Take 1 Tablet by mouth in the morning. 90 Tablet 3 Lidocaine Viscous HCl 2 % Mouth/Throat Solution Apply small amount to tender tooth and gums every 4hrs as needed for pain. 100 mL 1 Restasis 0.05 % Ophthalmic Emulsion INSTILL 1 DROP INTO EACH EYE TWICE DAILY Cyclobenzaprine HCl 10 MG Oral Tablet (Flexeril) Take 1 Tablet by mouth 3 times a day as needed forMuscle spasms. 90 Tablet 0 Terbinafine HCl 1 % External Cream (LamISIL AT ATHLETE'S FOOT) Apply topically to affected area 2 times a day. Apply to both feet for 8 weeks 30 g 1 Slnmaaed-Jmamngylg-IE 3.5-26796-4 Otic Solution Administer into the left ear 4 Drops in the morningAND 4 Drops at noon AND 4 Drops before bedtime. to affected ear, for 10 days.. 10 mL 5 Albuterol Sulfate (2.5 MG/3ML) 0.083% Inhalation Nebulization Solution (Proventil) Inhale 1 Vial via nebulizer every 4 hours as needed for Wheezing. 60 mL 1 EpiPen 2-Robert 0.3 MG/0.3ML Injection Solution Auto-injector For a severe reaction: Place orange end against the outer thigh, press firmly, hold in place for 10 seconds and go to the Emergency room. 2 Each 0 loratadine (CLARITIN) 10 MG Tablet Take 1 Tab by mouth daily. 30 Tab 5 NEBULIZER COMPRESSOR MISC Use as directed 1 Each 1 Fluticasone-Salmeterol 100-50 MCG/DOSE Inhalation Aerosol Powder Breath Activated (Advair Diskus) Inhale 1 Puff by mouth 2 times a day. (Patient not taking: Reported on 10/21/2023) 60 Each 3 No current facility-administered medications for this visit. Physical Exam Vitals: 11/24/23 1057 Temp: 36.8 C (98.3 F) Pulse: 77 SpO2: 97% BP: 124/88 Physical Exam Vitals reviewed. Constitutional: General: She is not in acute distress. Musculoskeletal: Right wrist: No snuff box tenderness. Normal pulse. Comments: R wrist: + tenderness distal radius No discrete mass palpated + sonja + pain with making a fist Neurological: Mental Status: She is alert. Assessment and Plan Right wrist pain Suspect de quervian Discussed supportive care/ indications for follow up Wrist brace with thumb spica, voltaren gel QID x 2 weeks, activity modification - XR WRIST 3 OR MORE VIEWS Wrap-Up Follow-up: Return if symptoms worsen or fail to improve. | Check-out note: Xray today Time: I spent a total of 20-29 minutes (exact time 20 mins) on the date of service in preparation, delivery, and documentation of the care provided to Sachi Miller excluding any time spent in the performance of separately billed services. documented in this encounter Nursing Notes * Minal Jones LPN - 11/24/2023 10:56 AM EDT The patient has been properly identified by confirmation of name and date of . Chief Complaint Patient presents with Acute Right wrist-- 1 week pain, lump on wrist. Hard, not soft. Pain worse with movement and when it is stiff. No relief with any OTC. Index finger and thumb goingnumb. Pain radiating to forearm now. Getting worse. Pt was using court interpreter on hedge, no injury. documented in this encounter Plan of Treatment Upcoming Encounters Date Type Department Care Team (Late st Contact Info) Description 01/06/2024 1:20 PM EST Office Visit Family Practice [facility] [address] [place] [address] Karla Yuen, [address] [place] [address] 08/26/2024 8:00 AM EDT Office Visit Endocrinology [address] [place] [phone] Nina Chen PA-C [address] [facility] [place] [address] Pending Results Name Type Priority Associated Diagnoses Date /Time XR WRIST 3 OR MORE VIEWS Medical Imaging STAT Right wrist pain 11/24/2023 11:46 AM EDT Health Maintenance Due Date Last Done Comments DISCUSS TOBACCO CESSATION (REFER TO SMARTSET #2436) 1985 HIV Screening 06/11/1998 Albumin/Creatinine Ratio 06/11/2001 Alpha-1 Antitrypsin 06/11/2001 Hepatitis C Screening 06/11/2001 Depression Screening 05/05/2020 05/06/2019 COVID-19 Vaccine ( season) 2023 Influenza Vaccine (FLU shot) (#1) 2023 01/17/2013 GFR 05/03/2024 05/04/2023, 08/30, 11/06/2020, Additional history exists TSH 07/05/2024 07/06/2023, 0306/2023, 11/06/2020, Additional history exists Mammogram 07/14/2024 07/15/2023 O2 ASSESSMENT COMPLETED IN PAST YEAR FOR COPD 11/23/2024 11/24/2023 Lipid Panel 05/16/2025 05/16/2020, 05/31, 09/19/2011 Diabetes [...] this encounter Medical Devices Implanted Type Area Hydraulic Jack Adjuster Device Identifier Shelf Expiration Date Model / Serial / Lot Silicone T-Tube [id number] - [id number] Implanted:Qty: 1 on 07/15/2018 by Frank Landin DO at OR [facility] Left: Ear [employer] 07/31/2027 [id number] / / [id number] Silicone T-Tube [id number] - [id number] Implanted:Qty: 1 on 07/15/2018 by Frank Landin DO at OR [facility] Right: Ear [employer] 07/31/2027 [id number] / / [id number] documented as of this encounter Visit Diagnoses Diagnosis Right wrist pain- Primary Pain in joint, forearm documented in this encounter Care Teams Surgical Sales Representative Relationship Specialty Start Date End Date Daniele Howard CRNP [address] [facility] [place] [address] PCP - General Nurse Practitioner 09/13/23 documented as of this encounter"
--- OUTSIDE RECORDS SUMMARY | 2024-05-17 07:50 | External Medical Summary | Summary of Care ---
Author Name Unknown Organization [facility] Address [address] [facility] [place] [address] Phone [phone] Care Team Providers Care Business Support Liaison Name Role Phone Daniele Howard Primary Care Provider [phone] Encounter Details Date Type Department Care Team (Late st Contact Info) Description 02/01/2024 Patient Reported Data Patient Survey Ortho OBERD Allergies Active Allergy Reactions Criticality Noted Date Comments Amoxicillin 02/05/2001 Hives Moxifloxacin Hcl In Nacl Edema airway High 11/18/2010 [place] like her throat was closing off Bactrim [...] B, by GOLD 2017 classification ([facility]) Inhale 1 Puff by mouth 2 times a day. 60 Each 3 09/15/19 21 Active Additional Information Patient not taking.Reported on 10/21/2023 Albuterol Sulfate (2.5 MG/3ML) 0.083% Inhalation Nebulization Solution (Proventil)Indicat ions:COPD, group B, by GOLD 2017 classification ([facility]) Inhale 1 Vial via nebulizer every 4 hours as needed for Wheezing. 60 mL 1 09/15/19 21 Active Neomycin-Polymyxin -HC 3.5-34352-4 Otic Solution Administer into the left ear [...] B, by GOLD 2017 classification ([facility]) inhale 2 puffs by mouth and INTO THE LUNGS every 4 hours if needed for SHORTNESS OF BREATH 18 g 1 01/06/20 24 Active Fluticasone-Salmet dorota 100-50 MCG/ACT Inhalation Aerosol Powder Breath Activated (Advair Diskus)Indications :COPD, group B, by GOLD 2017 classification ([facility]) Inhale 1 Puff by mouth in the [...] 02/01/2024 10:00 AM EST Office Visit Orthopaedics [facility] [address] [facility] [place] [address] Jose Rosales MD [address] [place] [address] Sachi Miller 08/26/2024 8:00 AM EDT Office Visit Endocrinology [address] [place] [phone] Nina Chen PA-C [address] [facility] [place] [address] Health Maintenance Due Date Last Done Comments DISCUSS TOBACCO CESSATION (REFER TO SMARTSET #0140) 1985 HIV Screening 06/11/1998 Albumin/Creatinine Ratio 06/11/2001 [...] this encounter Medical Devices Implanted Type Area Transportation Consultant Device Identifier Shelf Expiration Date Model / Serial / Lot Silicone T-Tube [id number] - [id number] Implanted:Qty: 1 on 07/15/2018 by Frank Landin, at OR [facility] Left: Ear [employer] 07/31/2027 [id number] / / [id number] Silicone T-Tube [id number] - [id number] Implanted:Qty: 1 on 07/15/2018 by Frank Landin DO at OR [facility] Right: Ear [employer] 07/31/2027 [id number] / / [id number] documented as of this encounter Care Teams Business Support Liaison Relationship Specialty Start Date End Date Daniele Howard CRNP [address] [facility] [place] [address] PCP - General Nurse Practitioner 09/13/23 documented as of this encounter
--- OUTSIDE RECORDS SUMMARY | 2024-05-17 07:50 | External Medical Summary | Summary of Care ---
Author Name Unknown Organization [facility] Address [address] [facility] [address] Phone [phone] Care Team Providers Care Gasoline Dragline Operator Name Role Phone Daniele Howard Primary Care Provider [phone] Encounter Details Date Type Department Care Team (Late st Contact Info) Description 02/01/2024 Patient Reported Data Patient Survey Ortho OBERD Allergies Active Allergy Reactions Criticality Noted Date Comments Amoxicillin 02/05/2001 Hives Moxifloxacin Hcl In Nacl Edema airway High 11/18/2010 [place] like her throat was closing off Bactrim [...] group B, by GOLD 2017 classification ([facility]) Inhale 1 Puff by mouth 2 times a day. 60 Each 3 09/15/19 21 Active Additional Information Patient not taking.Reported on 10/21/2023 Albuterol Sulfate (2.5 MG/3ML) 0.083% Inhalation Nebulization Solution (Proventil)Indicat ions:COPD, group B, by GOLD 2017 classification ([facility]) Inhale 1 Vial via nebulizer every 4 hours as needed for Wheezing. 60 mL 1 09/15/19 21 Active Neomycin-Polymyxin -HC 3.5-08204-9 Otic Solution Administer into the left ear [...] group B, by GOLD 2017 classification ([facility]) inhale 2 puffs by mouth and INTO THE LUNGS every 4 hours if needed for SHORTNESS OF BREATH 18 g 1 01/06/20 24 Active Fluticasone-Salmet dorota 100-50 MCG/ACT Inhalation Aerosol Powder Breath Activated (Advair Diskus)Indications :COPD, group B, by GOLD 2017 classification ([facility]) Inhale 1 Puff by mouth in the [...] 02/01/2024 10:00 AM EST Office Visit Orthopaedics [facility] [address] [facility] [place] [address] Jose Rosales MD [address] [place] [address] Sachi Miller 08/26/2024 8:00 AM EDT Office Visit Endocrinology [address] [place] [phone] Nina Chen PA-C [address] [facility] [place] [address] Health Maintenance Due Date Last Done Comments DISCUSS TOBACCO CESSATION (REFER TO SMARTSET #0555) 1985 HIV Screening 06/11/1998 Albumin/Creatinine Ratio 06/11/2001 [...] this encounter Medical Devices Implanted Type Area Microsoft Crm Developer Device Identifier Shelf Expiration Date Model / Serial / Lot Silicone T-Tube [id number] - [id number] Implanted:Qty: 1 on 07/15/2018 by Frank Landin, at OR [facility] Left: Ear [employer] 07/31/2027 [id number] / / [id number] Silicone T-Tube [id number] - [id number] Implanted:Qty: 1 on 07/15/2018 by Frank Landin DO at OR [facility] Right: Ear [employer] 07/31/2027 [id number] / / [id number] documented as of this encounter Care Teams Gasoline Dragline Operator Relationship Specialty Start Date End Date Daniele Howard CRNP [address] [facility] [place] [address] PCP - General Nurse Practitioner 09/13/23 documented as of this encounter
--- OUTSIDE RECORDS SUMMARY | 2024-05-17 07:50 | External Medical Summary | Summary of Care ---
Author Name Unknown Organization [facility] Address [address] [facility] [place] [address] Phone [phone] Care Team Providers Care Radiological Technician Name Role Phone Daniele HowardNP Primary Care Provider [phone] Reason for Referral * Evaluate & Treat - Unlimited Visits (Within 10 days (routine)) - Authorized Specialty Diagnoses / Procedures Referred By Anthony chandler Referred To Contact Orthopaedic Surgery / Orthopedics Diagnoses Right wrist pain Karla Yuen DO [address] [place] [address] Referral ID Status Reason Start Date Expiration Date Visits Requested Visits Authorized [id number] Authorized Specialty Services Required 01/06/2024 999 999 Question Answer Referral Priority Within 10 days (routine) Where should this appointment be scheduled? [facility] What body part is the patient being seen for? Forearm/Wrist What condition is the patient being seen for? Sprain/Strain/Tear/Other Reason for Visit * Reason Comments Re-Check 6 mo check, R wrist pain x 2 mo Encounter Details Date Type Department Care Team (Latest Contact Info) Description 01/06/2024 1:20 PM EST Office Visit Family Practice [facility] [address] [place] [address] Karla Yuen DO [address] [place] [address] Well adult exam*; Right wrist pain; COPD, group B, by GOLD 2017 classification (HCC); Wheezing; HTN, goal below 130/80; Hypothyroidism, unspecified type Allergies Active Allergy Reactions Criticality Noted Date Comments Amoxicillin 02/05/2001 Hives Moxifloxacin Hcl In Nacl Edema airway High 11/18/2010 [place] like her throat was closing off Bactrim [...] as of this encounter (statuses as of 01/06/2024) Medications Medication Sig Dispensed Refills Start Date End Date Status NEBULIZER COMPRESSOR MISCIndications:Acu te sinusitis Use as directed 1 Each 1 10/10/2012 Active loratadine (CLARITIN) 10 MG TabletIndications:A llergic rhinitis, unspecified allergic rhinitis trigger, unspecified rhinitis seasonality Take 1 Tab by mouth daily. 30 Tab 5 05/25/2016 Active EpiPen 2-Robert 0.3 MG/0.3ML Injection Solution Auto-injectorIndica tions:Allergy to bee sting For a severe reaction: Place orange end against the outer thigh, press firmly, hold in place for 10 seconds and go to the Emergency room. 2 Each 04/08/2020 Active Fluticasone-Salmete rol 100-50 MCG/DOSE Inhalation Aerosol Powder Breath Activated (Advair Diskus)Indications: COPD, group B, by GOLD 2017 classification ([facility]) Inhale 1 Puff by mouth 2 times a day. 60 Each 3 09/14/2020 Active Additional Information Patient not taking.Reported on 10/21/2023 Albuterol Sulfate (2.5 MG/3ML) 0.083% Inhalation Nebulization Solution (Proventil)Indicati ons:COPD, group B, by GOLD 2017 classification ([facility]) Inhale 1 Vial via nebulizer every 4 hours as needed for Wheezing. 60 mL 1 09/14/2020 Active Neomycin-Polymyxin- HC 3.5-46839-9 Otic Solution Administer into the left ear 4 Drops in the morning AND 4 Drops at noon AND 4 Drops before bedtime. to affected ear, for 10 days.. 10 mL 5 11/07/2021 Active Terbinafine HCl 1 % External Cream (LamISIL AT ATHLETE'S FOOT)Indications:Ti adam pedis of both feet Apply topically to affected area 2 times a day. Apply to both feet for 8 weeks 30 g 1 07/29/2022 Active Cyclobenzaprine HCl 10 MG Oral Tablet (Flexeril)Indicatio ns:Fibromyalgia Take 1 Tablet by mouth 3 times a day as needed for Muscle spasms. 90 Tablet 03/13/2023 Active Restasis 0.05 % Ophthalmic Emulsion INSTILL 1 DROP INTO EACH EYE TWICE DAILY 03/12/2023 Active Lidocaine Viscous HCl 2 % Mouth/Throat SolutionIndications :Tooth pain Apply small amount to tender tooth and gums every 4hrs as needed for pain. 100 mL 1 05/05/2023 Active hydroCHLOROthiazide 25 MG Oral Tablet (Hydrodiuril)Indica tions:HTN, goal below 130/80 Take 1 Tablet by mouth in the morning. 90 Tablet 07/06/2023 Active Losartan Potassium 50 MG Oral Tablet (Cozaar)Indications :HTN, goal below 130/80 Take 1 Tablet by [...] HFA 108 (90 Base) MCG/ACT Inhalation Aerosol SolutionIndications :Wheezing,COPD, group B, by GOLD 2017 classification ([facility]) inhale 2 puffs by mouth and INTO THE LUNGS every 4 hours if needed for SHORTNESS OF BREATH 18 g 1 01/06/2024 Active Fluticasone-Salmete rol 100-50 MCG/ACT Inhalation Aerosol Powder Breath Activated (Advair Diskus)Indications: COPD, group B, by GOLD 2017 classification ([facility]) Inhale 1 Puff by mouth in the morning and 1 Puff before bedtime. 60 Each 3 01/06/2024 Active Albuterol Sulfate HFA 108 (90 Base) MCG/ACT Inhalation Aerosol SolutionIndications :Wheezing inhale 2 puffs by mouth and INTO THE LUNGS every 4 hours if needed for SHORTNESS OF BREATH 18 g 1 10/21/2023 4 Discontinue d(Refill) documented as of this encounter (statuses as of 01/06/2024) Active Problems Problem Noted Date Diagnosed Date [...] as of this encounter (statuses as of 01/06/2024) Resolved Problems Problem Noted Date Diagnosed Date [...] as of this encounter (statuses as of 01/06/2024) Immunizations Name Administration Dates Next Due Pneumococcal [...] Sign Reading Time Taken Comments Blood Pressure 116/76 01/06/2024 2:01 PM EST Pulse 88 01/06/2024 2:01 PM EST Temperature 37 C (98.6 F) 01/06/2024 2:01 PM EST Respiratory Rate 16 01/06/2024 2:01 PM EST Oxygen Saturation - - Inhaled Oxygen Concentration - - Weight 121.6 kg (268 lb) 01/06/2024 2:01 PM EST Height - - Body Mass Index 46 03/13/2023 2:38 PM EST documented in this encounter Progress Notes * Karla Yuen, DO - 01/06/2024 2:27 PM EST Subjective: Sachi Miller is a 38 year old female. Chief Complaint Patient presents with Re-Check 6 mo check, R wrist pain x 2 mo HPI: Pt presents for follow up today. Has had lump on R wrist that has gotten larger over the past 2 months. Breathing has been stable recently. Using albuterol a few times a week. Hasn't had advair for a while. Is taking thyroid medication more regularly. PHM: Patient Active Problem List Diagnosis Hypothyroidism Tobacco use disorder GERD (gastroesophageal reflux disease) S/P lumbar microdiscectomy Chronic bilateral low back pain HTN, goal below 130/80 COPD, group B, by GOLD 2017 classification ([facility]) Atrioventricular block, first degree Acute midline low back pain with bilateral sciatica Graves' disease without crisis Body mass index (BMI) of 40.0 to 44.9 in adult ([facility]) Current Outpatient Medications Medication Sig Dispense Refill [...] to the Emergency room. 2 Each 0 Albuterol Sulfate (2.5 MG/3ML) 0.083% Inhalation Nebulization Solution (Proventil) Inhale 1 Vial via nebulizer every 4 hours as needed for Wheezing. 60 mL 1 Ahvllnpj-Opiptpdte-LF 3.5-06612-7 Otic Solution Administer into the left ear 4 Drops in the morningAND 4 Drops at noon AND 4 Drops before bedtime. to affected ear, for 10 days.. 10 mL 5 Terbinafine HCl 1 % External Cream (LamISIL AT ATHLETE'S FOOT) Apply topically to affected area 2 times a day. Apply to both feet for 8 weeks 30 g 1 Cyclobenzaprine HCl 10 MG Oral [...] breakfast or other meds) 90 Tablet 1 Albuterol Sulfate HFA 108 (90 Base) MCG/ACT Inhalation Aerosol Solution inhale 2 puffs by mouth andINTO THE LUNGS every 4 hours if needed for SHORTNESS OF BREATH 18 g 1 Fluticasone-Salmeterol 100-50 MCG/DOSE Inhalation Aerosol Powder Breath Activated (Advair Diskus) Inhale 1 Puff by mouth 2 times a day. (Patient not taking: Reported on 10/21/2023) 60 Each 3 No current facility-administered medications for this visit. Past Medical History: Diagnosis Date Cervical strain [...] performed by Frank Landin DO at OR [facility] D&C AFTER DELIVERY EGD, FLEXIBLE, DIAGNOSTIC 02/08/2013 UPPER GI ENDOSCOPY DIAGNOSTIC performed by Isac Larios MD at ENDOSCOPY [facility] left hand SENIOR DATA ANALYST PAP SCREEN 10/28/11 WNL, -Raquet INCISION OF [...] performed by Lupillo Burr DO at OR [facility] SPINE SURGERY PROCEDURE NEC 2014 SPINE SURGERY PROCEDURE NEC 2016 Review of patient's allergies indicates: Allergen Reactions Avelox [Moxifloxacin Hcl In Nacl] Edema airway [place] like her throat was closing off Cats [Cat Dander] Edema airway and Edema Other Eye edema Amoxicillin Hives Bactrim Other (Please comment) Sore tongue, Ulcers in mouth, pain left arm, welt on foot Bee Venom Hives Dogs [Dog Dander] Other (Please comment) Uri symptoms Dust Other (Please comment) Uri symptoms Molds & Smuts Other (Please comment) Uri symptoms Objective: BP 116/76 (BP Site: Left Arm, BP Position: Sitting, BP Cuff Size: Large) | Pulse 88 | Temp 37 C (98.6 F) (Tympanic) | Resp 16 | Wt 121.6 kg (268 lb) | LMP 03/11/2013 | BMI 46.00 kg/m | BSA 2.34m Review of Systems: As per HPI, all other ROS neg. Physical Exam: General: alert, healthy, no distress, well nourished and well developed Head: Normocephalic, No masses, lesions, tenderness or abnormalities Ears: External ears normal, Canals clear, TM's Normal Nose: no mucosal erythema, no mucosal edema, no purulent discharge, no septal hematoma Oropharynx: no exudate, no erythema, lips, buccal mucosa, and tongue normal and mucous membranes are moist Neck: supple, no adenopathy, thyroid normal size, non-tender, without nodularity Heart: regular rate & rhythm, no murmurs and no gallops Lungs: chest symmetric with normal AP diameter, no chest deformities noted, lungs clear to auscultation Abdomen: abdomen soft, non-tender, normal bowel sounds and no masses or organomegaly Extremities: no joint deformities, effusion, or inflammation, no edema, no clubbing, no cyanosis Well adult exam (Primary) all appropriate HM items addressed Including genitourinary (pap, mammo, psa), colon cancer screening and immunizations as indicated by patient sex, age and history Right wrist pain - ORTHOPAEDICS REFERRAL OP COPD, group B, by GOLD 2017 classification (HCC) - Albuterol Sulfate HFA 108 (90 Base) MCG/ACT Inhalation Aerosol Solution; inhale 2 puffs by mouth and INTO THE LUNGS every 4 hours if needed for SHORTNESS OF BREATH - Fluticasone-Salmeterol 100-50 MCG/ACT Inhalation Aerosol Powder Breath Activated (Advair Diskus);Inhale 1 Puff by mouth in the morning and 1 Puff before bedtime. Wheezing - Albuterol Sulfate HFA 108 (90 Base) MCG/ACT Inhalation Aerosol Solution; inhale 2 puffs by mouth and INTO THE LUNGS every 4 hours if needed for SHORTNESS OF BREATH HTN, goal below 130/80 Well controlled, cont current meds Hypothyroidism, unspecified type Trying to take more consistently, labs in 4 weeks Follow up: in 6 month(s). Karal Yuen DO documented in this encounter Plan of Treatment Upcoming Encounters Date Type Department Care Team (Late st Contact Info) Description 02/01/2024 10:00 AM EST Office Visit Orthopaedics [facility] [address] [place] [address] Jose Rosales MD [address] [place] [address] 08/26/2024 8:00 AM EDT Office Visit Endocrinology [address] [place] [phone] Nina Chen PA-C [address] [facility] [place] [address] Scheduled Referrals Name Type Priority Associated Diagnoses Order Schedule ORTHOPAEDICS REFERRAL OP Referral Within 10 days (routine) Right wrist pain Ordered: 01/06/2024 Health Maintenance Due Date Last Done Comments DISCUSS TOBACCO CESSATION (REFER TO SMARTSET #9729) 1985 HIV Screening 06/11/1998 Albumin/Creatinine Ratio 06/11/2001 [...] this encounter Medical Devices Implanted Type Area Registered Nurse Practitioner Device Identifier Shelf Expiration Date Model / Serial / Lot Silicone T-Tube [id number] - [id number] Implanted:Qty: 1 on 07/15/2018 by Frank Landin DO at [facility] Left: Ear [employer] 07/31/2027 [id number] / / [id number] Silicone T-Tube [id number] - [id number] Implanted:Qty: 1 on 07/15/2018 by Frank Landin DO at [facility] Right: Ear [employer] 07/31/2027 [id number] / / [id number] documented as of this encounter Visit Diagnoses Diagnosis Well adult exam- Primary Routine general medical examination at a health care facility Right wrist pain Pain in joint, forearm COPD, group B, by GOLD 2017 classification (HCC) Wheezing HTN, goal below 130/80 Unspecified essential hypertension Hypothyroidism, unspecified type documented in this encounter Care Teams Radiological Technician Relationship Specialty Start Date End Date Daniele Howard CRNP [address] [place] [address] PCP - General Nurse Practitioner 09/13/23 documented as of this encounter"
[2024-05-17] MEDS ORDERED: CYCLOBENZAPRINE HCL 10 MG TAB PO PRN (08:27)
[2024-05-17] MEDS ORDERED: NITROGLYCERIN SL 0.4 MG/TAB TAB SL PRN (08:27)
[2024-05-17] MEDS ORDERED: POLYETHYLENE (MIRALAX) 17 GM PACK PO PRN (08:27)
[2024-05-17] MEDS ORDERED: [UNRECOGNIZED DRUG - OTHER] INH PRN (08:27)
[2024-05-17] MEDS ORDERED: LABETALOL HCL IV 5 MG/ML 20ML IV PRN (08:27)
[2024-05-17] MEDS ORDERED: ACETAMINOPHEN 325 MG TAB PO PRN (08:27)
[2024-05-17] MEDS ORDERED: ARTIFICIAL TEARS OP PRN (08:54)
[2024-05-17] MEDS ORDERED: ALBUTEROL HFA 8 GM INHALER INH PRN ×2 (09:02→09:03)
[2024-05-17] MEDS: hydroCHLOROthiazide 25 MG TAB PO SCH (09:25)
[2024-05-17] MEDS: LEVOTHYROXINE SODIUM 200 MCG TABLET PO SCH (09:25)
[2024-05-17] MEDS: LORATADINE 10 MG TAB PO SCH (09:26)
[2024-05-17] MEDS: LOSARTAN POTASSIUM 50 MG TAB PO SCH (09:26)
[2024-05-17] MEDS: LOSARTAN POTASSIUM 50 MG TAB PO ONE (10:02)
[2024-05-17 12:49] LABS: Chol HDL Ratio 4.3 (0-5)
--- NOTE | 2024-05-17 12:49 | Cardiology Consultation ---
Date of Consultation May 17, 2024 Assessment & Plan (1) Hypertension: (2) Chest pain: Plan Patient admitted with atypical right sided chest pain and HTN urgency. EKG with non specific T wave abnormality in inferior leads, stable from 2022 EKG. HS troponin negative x2 since admission. Increase losartan from 50 mg (home dose) to 100 mg daily Continue HCTZ 25 mg daily Consider adding amlodipine if needed Echocardiogram ordered and results pending. Patient does have risk factors for CAD including HTN, chronic tobacco abuse, obesity, and family history of premature CAD. Once her BP has improved, consider ischemic work up. She has chronic back pain and likely would not be able to ambulate on a treadmill. Consider DSE vs nuclear study pending her BP. Further recommendations pending response to medication titration and echo results. Case discussed with Dr. Verde I spent a total of 55 minutes on the date of service in preparation, delivery, and documentation of the care provided to this patient, excluding any time spent in the performance of separately billed services. Luci Miller PA-C Department of Cardiology, [facility] This chart was completed in part utilizing Speech Voice Recognition Software. Grammatical errors, random word insertions, pronoun errors, and incomplete sentences are an occasional consequence of this system due to software limitations, ambient noise, and hardware issues. Any formal questions or concerns about the content, text, or information contained within the body of this dictation should be directly addressed to the provider for clarification. Supervising Physician Co-Signing Physician Notes I have personally performed a history and physical examination on the patient. I have reviewed the advance practitioner's documentation, and I agree with, and take responsibility for the plan of care. 38-year-old female presents to the emergency department with atypical chest discomfort. Describes right-sided chest pain at rest worsening throughout the morning. Discomfort possibly worse with movement, however, has resolved currently. No evidence of acute coronary syndrome. ECG demonstrates nonspecific T wave abnormality, unchanged from 2022. Cardiac enzymes within normal range. Echocardiogram demonstrates preserved LV systolic function, mild concentric LVH, and normal wall motion. Blood pressure mildly improved since admission. Agree with titration of losartan 100 mg daily. Add amlodipine 5 mg daily. Continue hydrochlorothiazide as ordered. Recommend further risk stratification with pharmacologic stress testing as an outpatient when blood pressure control has improved. Discussed importance of therapeutic lifestyle changes, weight loss, sodium restriction, and quitting smoking with patient and significant other. All questions answered to their satisfaction. Cardiology will sign off. Thank you for allowing me to participate in the care of your patient. I spent a total of 40 minutes on the date of service in preparation, delivery, and documentation of the care provided to this patient, excluding any time spent in the performance of separately billed services. Rui Verde DO, [facility] History of Present Illness Reason for Consultation: HTN urgency; CP Requesting Physician: Haley Jernigan Attending Physician: Dr. Verde History of Present Illness Patient is a 38 year old female presenting to [facility] with complaints of right sided, atypical, sharp/stabbing chest pain and HTN urgency with BP readings > 190/100 on arrival. History includes: 1. HTN 2. Chronic tobacco abuse with COPD 3. Obesity 4. Hypothyroidism/graves disease 5. Chronic back pain Patient denies history of cardiovascular problems. She takes antihypertensive medication at home with losartan 50 daily and hctz 25 daily. She has not been checking her BP at home. She had an echo in August 2022 which demonstrated normal LVEF, moderate concentric LVH and grade II diastolic dysfunction, no valvular disease. She was scheduled for a nuclear stress test and an exercise stress echo in the last few years but cancelled these appointments. She has family history of cardiovascular disease with her mom having NV/stents age 50's. Her sister is 1 year old and has atrial fibrillation. She reports waxing/waning right sided chest pain over the last few days. Sharp/stabbing pain. Occurred at rest or with exertion/movement. She reports chronic dyspnea but this is unchanged and she attributes this to her tobacco abuse and COPD. No diaphoresis. No radiation of the discomfort. Due to ongoing symptoms she came for evaluation. At time of evaluation, chest pain improved. HS troponin negativve x2 since admission. EKG with Allergies Allergy/AdvReac Type Severity Reaction Status Date / Time bee venom protein (honey bee) Allergy Severe THROAT Verified 05/17/24 02:26 SWELLS,MOUTH cat dander Allergy Severe EYES AND Verified 05/17/24 02:26 THROAT SWELLS dog dander Allergy Severe EYES AND Verified 05/17/24 02:26 THROAT SWELLS mold Allergy Severe EYES AND Verified 05/17/24 02:26 THROAT SWELLS moxifloxacin Allergy Severe THROAT Verified 05/17/24 02:26 SWELLING sulfamethoxazole Allergy Severe THROAT Verified 05/17/24 02:26 SWELLS trimethoprim Allergy Severe THROAT Verified 05/17/24 02:26 SWELLS amoxicillin Allergy Intermediate hives Verified 05/17/24 02:26 Penicillins Allergy Intermediate HIVES Verified 05/17/24 02:26 Dust Mite Extract Allergy Intermediate STUFFY NOSE Uncoded 05/17/24 02:26 Home Medications Medication Instructions Recorded Confirmed Type albuterol sulfate 90 mcg/actuation 2 inh inhalation Q4 PRN SHORT OF 02/03/19 05/17/24 History breath activated powder BREATH inhaler,sensor levothyroxine 200 mcg tablet 200 mcg PO QAM 02/03/19 05/17/24 History hydrochlorothiazide 25 mg tablet 25 mg PO QAM 12/15/22 05/17/24 History losartan 50 mg tablet 50 mg PO QAM 12/15/22 05/17/24 History cyclobenzaprine 10 mg tablet 10 mg PO TID PRN Muscle Spasm 09/09/23 05/17/24 History cyclosporine 0.05 % eye drops in a 1 drp OPB DIRECTED PRN Dry Eyes 09/09/23 05/17/24 History dropperette (Restasis) diphenhydramine HCl 25 mg capsule 25 mg PO TID 05/17/24 05/17/24 History (Benadryl) loratadine 10 mg tablet (Claritin) 10 mg PO DAILY 05/17/24 05/17/24 History Patient History Medical History Morbid obesity Hypertension Degenerative disc disease Urinary, incontinence, stress female GERD (gastroesophageal reflux disease) Hx of Graves' disease Hypothyroidism Anemia Anxiety and depression Restless leg syndrome Hx of migraines Chronic obstructive pulmonary disease Surgical History History of laparoscopy History of carpal tunnel release Hx of hand surgery Fusion of spine History of esophagogastroduodenoscopy (EGD) H/O: hysterectomy Hx of radioactive iodine thyroid ablation History of tooth extraction History of tonsillectomy and adenoidectomy History of myringotomy Family History Other No significant family history Social History Smoking Status: Current every day smoker Tobacco Type: Cigarettes Cigarettes Per Day: pack per day; Second Hand Exposure: No; Do You Dip or Chew Tobacco: No; Hx Alcohol Use: No Hx Substance Use: No Preferred Language: Moroccan Communication Ability: Effective Dance Entertainer Required: No Beliefs That Will Affect Care: None Current Living Situation: Family Feels Safe at Home: Yes Assistive Devices: Glasses and Walker Review of Systems Review of Systems: All systems reviewed & are unremarkable except as noted in HPI & below Physical Exam Constitutional: WD/WN, vitals as above + obese; no acute distress Neck: trachea midline, no thyromegaly Respiratory: normal respiratory effort Auscultation: + diminished lung sounds and + wheezes; no crackles and no rales Cardiovascular: Rate/Rhythm: regular rate and regular rhythm Heart Sounds: normal S1 and normal S2; no murmur Palpation: normal PMI Vessels: no JVD Extremities: no edema Gastrointestinal (Abdomen): normal bowel sounds, soft, nontender, no hepatosplenomegaly Musculoskeletal: no cyanosis or clubbing, extremities motor strength 5/5 Neurologic: PERRL, EOMI, accommodation nl, no face palsy, no dysarthria Results & Data Vital Signs (Past 12 Hours) Vital Signs Temp Pulse Pulse Resp BP BP Pulse Ox 05/17/24 12:22 90 18 144/97 H 94 05/17/24 10:00 69 12 208/128 H 94 05/17/24 09:30 73 12 183/128 H 95 05/17/24 09:21 74 13 201/136 H 94 05/17/24 08:30 05/17/24 08:30 77 14 197/128 H 95 05/17/24 07:03 80 15 94 05/17/24 06:57 73 98 05/17/24 06:45 78 16 93 05/17/24 06:30 80 16 95 05/17/24 06:15 74 10 L 95 05/17/24 06:09 81 05/17/24 06:02 148/95 H 05/17/24 05:30 75 12 96 05/17/24 04:30 156/111 H 05/17/24 04:30 66 16 156/111 H 92 05/17/24 04:15 70 18 174/107 H 93 05/17/24 04:00 72 20 154/100 H 95 05/17/24 03:46 75 15 151/108 H 96 05/17/24 03:30 72 13 164/94 H 97 05/17/24 03:15 79 15 168/97 H 94 05/17/24 03:00 75 12 149/83 H 96 05/17/24 02:57 75 12 97 05/17/24 02:45 157/105 H 05/17/24 02:39 80 12 94 05/17/24 02:30 152/99 H 05/17/24 02:30 152/99 H 05/17/24 02:27 78 13 94 05/17/24 02:15 157/111 H 05/17/24 02:00 82 16 154/115 H 96 05/17/24 01:57 83 15 96 05/17/24 01:51 98 H 24 166/122 H 91 05/17/24 01:51 87 05/17/24 01:42 36.8 C 88 20 193/120 H 97 O2 Del Method O2 Del Method 05/17/24 12:22 Room Air 05/17/24 10:00 Room Air 05/17/24 09:30 Room Air 05/17/24 09:21 Room Air 05/17/24 08:30 Room Air 05/17/24 08:30 Room Air 05/17/24 07:03 05/17/24 06:57 05/17/24 06:45 05/17/24 06:30 05/17/24 06:15 05/17/24 06:09 05/17/24 06:02 05/17/24 05:30 Room Air 05/17/24 04:30 05/17/24 04:30 Room Air 05/17/24 04:15 Room Air 05/17/24 04:00 Room Air 05/17/24 03:46 Room Air 05/17/24 03:30 Room Air 05/17/24 03:15 Room Air 05/17/24 03:00 Room Air 05/17/24 02:57 05/17/24 02:45 05/17/24 02:39 05/17/24 02:30 05/17/24 02:30 05/17/24 02:27 05/17/24 02:15 05/17/24 02:00 05/17/24 01:57 05/17/24 01:51 05/17/24 01:51 05/17/24 01:42 Room Air Laboratory Results Cardiac Enzymes 05/17/24 05/17/24 Range/Units 02:09 06:41 AST 15 (13-39) U/L Troponin I High Sens < 2.3 < 2.3 (0-14) pg/ml CBC 05/17/24 Range/Units 02:09 WBC 14.62 H (4.8-10.8) K/ul RBC 4.57 (4.20-5.40) M/uL Hgb 13.9 (12.0-16.0) g/dl Hct 41.7 (37.0-47.0) % Plt Count 405 H (130-400) K/uL Neut # (Auto) 8.47 H (1.40-6.50) K/uL Lymph # (Auto) 5.13 H (1.20-3.40) K/uL [place] # (Auto) 0.84 H (0.11-0.59) K/uL Eos # (Auto) 0.01 (0.00-0.50) K/uL Baso # (Auto) 0.05 (0.00-0.20) K/uL Comprehensive Metabolic Panel 05/17/24 Range/Units 02:09 Sodium 137 (136-145) mmol/L Potassium 3.6 (3.5-5.1) mmol/L Chloride 103 (98-107) mmol/L Carbon Dioxide 27 (21-32) mmol/L BUN 10 (6-23) mg/dl Creatinine 1.12 (0.6-1.2) mg/dl Glucose 112 H (70-99(Fasting)) mg/dl Calcium 10.0 (8.6-10.3) mg/dl AST 15 (13-39) U/L ALT 18 (7-52) U/L Alkaline Phosphatase 120 H (34-104) U/L Total Protein 7.9 (6.0-8.3) gm/dl Albumin 4.4 (3.4-5.0) gm/dl Intake and Output 05/16/24 05/17/24 05/17/24 22:59 06:59 14:59 Other: Weight 124 kg Weight Measurement Method Chair Scale Diagnostic Findings Telemetry reviewed: NSR. No arrhythmias EKG reviewed from 3/18/25: NSR with 1st degree AV block Non specific T wave abnormality in inferior leads. when compared with prior outpatient EKG - similar findings from August 2022 Echo report pending Chest X-Ray 05/17/24 02:09 Normal chest X-ray. No acute cardiopulmonary abnormalities are identified.Stable Prior outpatient data reviewed: Echo from August 2022: Interpretation Summary The examination is adequate to evaluate the referral indication. The left ventricular cavity size is normal. The left ventricular wall motion is normal. The qualitative LV ejection fraction is 55-59% (normal). The LV wall thickness is moderately increased (concentric). The left ventricular diastolic function is moderately abnormal (grade II). There is no significant valvular disease There is no evidence of pulmonary hypertension. Medications Administered Cardiac Enzymes 05/17/24 05/17/24 Range/Units 02:09 06:41 AST 15 (13-39) U/L Troponin I High Sens < 2.3 < 2.3 (0-14) pg/ml Lipids 05/17/24 Range/Units 12:14 Triglycerides 198 H (0-150) mg/dl Cholesterol 160 (0-200) mg/dl HDL Cholesterol 37 mg/dl Cholesterol/HDL Ratio 4.3 (0-5) CBC 05/17/24 Range/Units 02:09 WBC 14.62 H (4.8-10.8) K/ul RBC 4.57 (4.20-5.40) M/uL Hgb 13.9 (12.0-16.0) g/dl Hct 41.7 (37.0-47.0) % Plt Count 405 H (130-400) K/uL Neut # (Auto) 8.47 H (1.40-6.50) K/uL Lymph # (Auto) 5.13 H (1.20-3.40) K/uL [place] # (Auto) 0.84 H (0.11-0.59) K/uL Eos # (Auto) 0.01 (0.00-0.50) K/uL Baso # (Auto) 0.05 (0.00-0.20) K/uL Comprehensive Metabolic Panel 05/17/24 Range/Units 02:09 Sodium 137 (136-145) mmol/L Potassium 3.6 (3.5-5.1) mmol/L Chloride 103 (98-107) mmol/L Carbon Dioxide 27 (21-32) mmol/L BUN 10 (6-23) mg/dl Creatinine 1.12 (0.6-1.2) mg/dl Glucose 112 H (70-99(Fasting)) mg/dl Calcium 10.0 (8.6-10.3) mg/dl AST 15 (13-39) U/L ALT 18 (7-52) U/L Alkaline Phosphatase 120 H (34-104) U/L Total Protein 7.9 (6.0-8.3) gm/dl Albumin 4.4 (3.4-5.0) gm/dl Intake and Output 05/16/24 05/17/24 05/17/24 22:59 06:59 14:59 Other: Weight 124 kg Weight Measurement Method Chair Scale (1) Hypertension Hypertension type: primary hypertension Qualified Code(s): I10 - Essential (primary) hypertension (2) Chest pain Chest pain type: unspecified Qualified Code(s): R07.9 - Chest pain, unspecified
[2024-05-17] MEDS: diphenhydrAMINE Capsule 25 MG CAP PO SCH (13:09)
[2024-05-17 13:38] LABS: Thyroid Stimulating Hormone 47.188 uIu/ml (0.300-4.500)
[2024-05-17 14:14] LABS: T4 Free Thyroxine 0.6 ng/dl (0.61-1.60)
--- NOTE | 2024-05-17 14:53 | Electrocardiogram Report ---
Test Reason : Blood Pressure : */* mmHG Vent. Rate : 87 BPM Atrial Rate : 87 BPM P-R Int : 230 ms QRS Dur : 92 ms QT Int : 384 ms P-R-T Axes : 52 88 -16 degrees QTcB Int : 462 ms Sinus rhythm with 1st degree A-V block Nonspecific T wave abnormality Prolonged QT Abnormal ECG When compared with ECG of 22-Dec-2022 00:39, QT has shortened Confirmed by Chris Jimenez ([id number]) on 05/17/2024 2:52:54 PM Referred By: REFERRED SELF Confirmed By: Chris Jimenez
[2024-05-17 15:13] VITALS: PULSE 74
[2024-05-17 15:47] VITALS: RESP 20; TEMP 97.7; O2SAT 97
[2024-05-17] MEDS: amLODIPine BESYLATE 5 MG TAB PO SCH (15:54)
[2024-05-17 17:29] VITALS: BP 134/88
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
[2024-05-18] MEDS ORDERED: LOSARTAN POTASSIUM 50 MG TAB PO SCH (09:00)
[2024-05-18] MEDS ORDERED: ASPIRIN 81 MG ECTAB PO SCH (09:00)
== END 2024-05-17 18:10 | disposition home or self-care (01) | DRG 305 ==
LOC: ED 01:36 → EDINP 06:58 → 2S 14:49